=== PATIENT | male | born 1960 | race Caucasian/White ===

== ENCOUNTER 2021-03-06 13:06 | Inpatient (IN) | payer MEDICAID, SELFPAY ==
[~2021-03-06] VITALS: Ht 185.4 cm; Wt 95.9 kg
[~2021-03-06 13:06] MED LIST: CIPR-278 PO
[2021-03-06] MEDS ORDERED: 0.9% SODIUM CHLORIDE 10 ML SYRINGE IVP PRN ×2 (13:30→16:45)
[2021-03-06] MEDS ORDERED: DEXAMETHASONE SOD PHOS 4 MG/ML 5 ML VIAL IVP ONE (13:45)
[2021-03-06] MEDS ORDERED: ACETAMINOPHEN 325 MG TABLET PO ONE (13:45)
[2021-03-06] MEDS ORDERED: AZITHROMYCIN 500 MG/NS 250 ML IV ONE (13:45)
[2021-03-06] MEDS ORDERED: IVERMECTIN 3 MG TABLET PO ONE (13:45)
[2021-03-06] MEDS ORDERED: ZINC SULFATE 220 MG CAPSULE PO ONE (13:45)
[2021-03-06] MEDS ORDERED: BUDESONIDE 180 MCG/INH INHALER [120] IH ONE (14:00)
[2021-03-06 14:44] LABS: BASOPHILS % (AUTO) 0.1 % (0.0-2.0); EOSINOPHILS % (AUTO) 0 % (1.0-6.0); HEMATOCRIT 38.4 % (41-53); LYMPHOCYTES # (AUTO) 0.8 K/uL (1.0-4.8); MEAN CORPUSCULAR HGB CONC 33.8 G/dL (31.0-37.0); MEAN CORPUSCULAR VOLUME 86 fL (80-100); MONOCYTES # (AUTO) 0.4 K/uL (0.1-1.0); MONOCYTES % (AUTO) 6.9 % (2.0-9.0); NEUTROPHILS # (AUTO) 4.7 K/uL (1.8-7.7); PLATELET COUNT (AUTO) 195 K/uL (150-450); RED BLOOD CELL COUNT(AUTO) 4.48 MIL/uL (4.50-5.90); RED CELL DISTRIBUTION WIDTH 13.6 % (11.5-14.5)
[2021-03-06 14:53] LABS: COVID AG,FIA SOURCE NASOPHARYNGEAL
[2021-03-06 15:07] LABS: B-TYPE NATRIURETIC PEPTIDE 268 pg/mL (0-100)
[2021-03-06 15:09] LABS: ABG A-A DIFF O2 142.4 mmHg (10-20.0); ABG BASE EXCESS 0.9 mmol/L (-2.0-3.0); ABG CARBOXYHEMOGLOBIN 0.1 % (0.0-1.5); ABG HCO3 25.6 mmol/L (22.0-26.0); ABG METHEMOGLOBIN 0.1 % (0.0-1.5); ABG OXYGEN SATURATION 91.9 % (95.0-98.0); ABG OXYHEMOGLOBIN 91.7 % (94.0-100.0); ABG PCO2 38 mmHg (35-45); ABG PH 7.435 (7.35-7.450); ABG TOTAL HEMOGLOBIN 13.2 G/dL (12.0-18.0); PO2, ARTERIAL BG 67.6 mmHg (84.0-92.0); SOURCE, BLOOD GAS ARTERIAL; TEMPERATURE, FAHRENHEIT, BG 102.8 FAHREN (96.0-98.6)
[2021-03-06 15:10] LABS: O2 DEVICE,BLOOD GAS CANNULA (ROOM AIR); SITE, BLOOD GAS LFT BRACHIAL
[2021-03-06 15:18] LABS: ANION GAP 11 mmol/L (8-16); APPEARANCE,URINE CLEAR (CLEAR); BILIRUBIN,URINE NEGATIVE (NEGATIVE); CALCIUM, TOTAL 8.1 mg/dL (8.8-10.5); CARBON DIOXIDE 25 mmol/L (22-29); CHLORIDE 100 mmol/L (98-107); CREATININE 0.91 mg/dL (0.60-1.30); GLOMERULAR FILTR. RATE CALC > 60 mL/min (>60); GLUCOSE, URINE (UA) NEGATIVE (NEGATIVE); GLUCOSE,RANDOM 118 mg/dL (70-110); KETONES,URINE NEGATIVE (NEGATIVE); LEUKOCYTE ESTERASE ,URINE NEGATIVE (NEGATIVE); NITRATE,URINE NEGATIVE (NEGATIVE); OCCULT BLOOD,URINE TRACE (NEGATIVE); PH,URINE 6.5 (5.0-8.0); POTASSIUM 3.9 mmol/L (3.5-5.1); PROTEIN,URINE SEE CONFIRM (NEGATIVE); SODIUM SERUM 136 mmol/L (136-145); UREA NITROGEN, BLOOD 14 mg/dL (7-18)
[2021-03-06 15:26] LABS: LACTIC ACID 1.2 mmol/L (0.4-2.0)
[2021-03-06 15:30] LABS: BACTERIA,URINE Rare /HPF (None Seen); SQUAMOUS EPITHELIAL CELL,UR Rare /LPF (None Seen); SULFOSALICYLIC ACID,URINE 3+ (Negative); WBC,URINE 0-2 /HPF (0-5)
[2021-03-06 15:41] LABS: D-DIMER 0.56 mg/L FEU (0.00-0.50); INR 1.1 (0.9-1.1); PROTHROMBIN TIME 11.2 SEC (9.4-11.6)
[2021-03-06 15:56] LABS: ALANINE AMINOTRANSFERASE 29 U/L (12-78); ALKALINE PHOSPHATASE 76 U/L (46-116); ASPARTATE AMINOTRANSFERASE 31 U/L (15-37); BILIRUBIN,TOTAL 0.5 mg/dL (0.1-1.0); C-REACTIVE PROTEIN QUANT 20.39 mg/dL (0.00-0.30); CREATINE KINASE, TOTAL ONLY 181 U/L (39-308); FERRITIN 658 ng/mL (26-388); TOTAL PROTEIN, SERUM 7.3 g/dL (6.4-8.2)
[2021-03-06] MEDS ORDERED: ACETAMINOPHEN 325 MG TABLET PO PRN (16:45)
[2021-03-06] MEDS: AZITHROMYCIN 500 MG/NS 250 ML IV SCH (19:00)
[2021-03-06] MEDS ORDERED: REMDESIVIR 200 MG in SODIUM CHLORIDE 0.9% 250 ML IV ONE (19:00)
[2021-03-06] MEDS ORDERED: BENZONATATE 100 MG CAPSULE PO PRN (19:00)
[2021-03-06] MEDS: DOCUSATE SODIUM 100 MG CAPSULE PO SCH (21:00)
[2021-03-07] MEDS: HEPARIN SODIUM,PORCINE 5,000 UNITS/ML VIAL SQ SCH ×4 (00:07→23:34)
[2021-03-07] MEDS: FAMOTIDINE 20 MG TABLET PO SCH (10:54)
[2021-03-07] MEDS: DOCUSATE SODIUM 100 MG CAPSULE PO SCH ×2 (10:54→21:13)
[2021-03-07] MEDS: DEXAMETHASONE SOD PHOS 4 MG/ML VIAL IVP SCH (10:54)
[2021-03-07 11:17] VITALS: BP 130/81
[2021-03-07 13:12] VITALS: BP_SYST 116; BP_SYST 127; BP_DIAS 68; BP_DIAS 71
[2021-03-07 15:41] LABS: EOSINOPHILS % (AUTO) 0 % (1.0-6.0); HEMOGLOBIN 14.7 g/dL (13.5-17.5); LYMPHOCYTES # (AUTO) 0.8 K/uL (1.0-4.8); LYMPHOCYTES % (AUTO) 7.5 % (22.0-44.0); MEAN CORPUSCULAR HEMOGLOBIN 29.1 pg (26.0-34.0); MEAN CORPUSCULAR HGB CONC 33.5 G/dL (31.0-37.0); MEAN CORPUSCULAR VOLUME 87 fL (80-100); MONOCYTES # (AUTO) 0.6 K/uL (0.1-1.0); MONOCYTES % (AUTO) 5.2 % (2.0-9.0); NEUTROPHILS # (AUTO) 9.4 K/uL (1.8-7.7); PLATELET COUNT (AUTO) 288 K/uL (150-450); RED BLOOD CELL COUNT(AUTO) 5.06 MIL/uL (4.50-5.90); RED CELL DISTRIBUTION WIDTH 13.9 % (11.5-14.5)
[2021-03-07 15:44] LABS: NEUTROPHILS % (AUTO) 87.3 % (40.0-70.0)
[2021-03-07 16:04] LABS: ALANINE AMINOTRANSFERASE 54 U/L (12-78); ALBUMIN 2.7 g/dL (3.4-5.0); ALKALINE PHOSPHATASE 76 U/L (46-116); ANION GAP 12 mmol/L (8-16); ASPARTATE AMINOTRANSFERASE 60 U/L (15-37); BILIRUBIN,TOTAL 0.4 mg/dL (0.1-1.0); CALCIUM, TOTAL 8.5 mg/dL (8.8-10.5); CARBON DIOXIDE 24 mmol/L (22-29); CHLORIDE 103 mmol/L (98-107); CREATININE 0.89 mg/dL (0.60-1.30); GLOMERULAR FILTR. RATE CALC > 60 mL/min (>60); GLUCOSE,RANDOM 239 mg/dL (70-110); POTASSIUM 4.2 mmol/L (3.5-5.1); SODIUM SERUM 139 mmol/L (136-145); TOTAL PROTEIN, SERUM 7.3 g/dL (6.4-8.2); UREA NITROGEN, BLOOD 19 mg/dL (7-18)
[2021-03-07 16:34] VITALS: BP 127/73
[2021-03-07 19:39] VITALS: BP 121/78
[2021-03-07] MEDS ORDERED: SODIUM CHLORIDE 0.9% 500 ML IV ONE (19:48)
[2021-03-07] MEDS: REMDESIVIR 100 MG in SODIUM CHLORIDE 0.9% 250 ML IV SCH (19:56)
[2021-03-07] MEDS: AZITHROMYCIN 500 MG/NS 250 ML IV SCH (21:13)
[2021-03-08] VITALS (7 sets, daily range): BP systolic 112–136; BP diastolic 57–79
[2021-03-08] MEDS: DEXAMETHASONE SOD PHOS 4 MG/ML VIAL IVP SCH (08:44)
[2021-03-08] MEDS: DOCUSATE SODIUM 100 MG CAPSULE PO SCH ×2 (08:44→20:21)
[2021-03-08] MEDS: HEPARIN SODIUM,PORCINE 5,000 UNITS/ML VIAL SQ SCH ×3 (08:44→23:59)
[2021-03-08] MEDS: FAMOTIDINE 20 MG TABLET PO SCH (08:44)
[2021-03-08] MEDS ORDERED: DEXTROSE 50%-WATER 25 GM/50 ML SYRINGE IVP PRN (13:00)
[2021-03-08 15:27] LABS: ALANINE AMINOTRANSFERASE 108 U/L (12-78); ALBUMIN 2.5 g/dL (3.4-5.0); ALKALINE PHOSPHATASE 74 U/L (46-116); ANION GAP 9 mmol/L (8-16); ASPARTATE AMINOTRANSFERASE 94 U/L (15-37); BILIRUBIN,TOTAL 0.5 mg/dL (0.1-1.0); CALCIUM, TOTAL 7.9 mg/dL (8.8-10.5); CARBON DIOXIDE 23 mmol/L (22-29); CHLORIDE 103 mmol/L (98-107); CREATININE 0.87 mg/dL (0.60-1.30); GLOMERULAR FILTR. RATE CALC > 60 mL/min (>60); GLUCOSE,RANDOM 231 mg/dL (70-110); POTASSIUM 4.1 mmol/L (3.5-5.1); SODIUM SERUM 135 mmol/L (136-145); THYROID STIMULATING HORMONE 1.15 uIU/mL (0.36-3.74); TOTAL PROTEIN, SERUM 6.6 g/dL (6.4-8.2); UREA NITROGEN, BLOOD 22 mg/dL (7-18)
[2021-03-08] MEDS: INSULIN LISPRO 100 UNITS/ML SQ PRN (16:16)
[2021-03-08] MEDS: REMDESIVIR 100 MG in SODIUM CHLORIDE 0.9% 250 ML IV SCH (18:09)
[2021-03-08] MEDS: AZITHROMYCIN 500 MG/NS 250 ML IV SCH (20:21)
[2021-03-09 00:26] LABS: GLUCOMETER DEV NAME(LOC) 5N.1C; GLUCOSE,POINT OF CARE 215 MG/DL (70-110)
[2021-03-09] MEDS ORDERED: DAPTOMYCIN 500 MG in SODIUM CHLORIDE 0.9% 50 ML IV SCH (02:00)
[2021-03-09 04:29] VITALS: BP 142/89
[2021-03-09 06:27] LABS: GLUCOMETER DEV NAME(LOC) 5N.1C; GLUCOSE,POINT OF CARE 129 MG/DL (70-110)
[2021-03-09 07:28] VITALS: BP 154/100
[2021-03-09] MEDS: DEXAMETHASONE SOD PHOS 4 MG/ML VIAL IVP SCH (08:09)
[2021-03-09] MEDS: HEPARIN SODIUM,PORCINE 5,000 UNITS/ML VIAL SQ SCH ×3 (08:09→23:30)
[2021-03-09] MEDS: DOCUSATE SODIUM 100 MG CAPSULE PO SCH ×2 (08:10→20:26)
[2021-03-09] MEDS: FAMOTIDINE 20 MG TABLET PO SCH (08:10)
[2021-03-09 08:23] VITALS: BP 117/60
[2021-03-09 09:04] LABS: ALANINE AMINOTRANSFERASE 111 U/L (12-78); ALBUMIN 2.5 g/dL (3.4-5.0); ALKALINE PHOSPHATASE 80 U/L (46-116); ANION GAP 12 mmol/L (8-16); ASPARTATE AMINOTRANSFERASE 64 U/L (15-37); BILIRUBIN,TOTAL 0.6 mg/dL (0.1-1.0); C-REACTIVE PROTEIN QUANT 5.86 mg/dL (0.00-0.30); CALCIUM, TOTAL 8.1 mg/dL (8.8-10.5); CARBON DIOXIDE 25 mmol/L (22-29); CHLORIDE 103 mmol/L (98-107); CREATININE 0.75 mg/dL (0.60-1.30); GLOMERULAR FILTR. RATE CALC > 60 mL/min (>60); GLUCOSE,RANDOM 126 mg/dL (70-110); POTASSIUM 3.9 mmol/L (3.5-5.1); SODIUM SERUM 140 mmol/L (136-145); TOTAL PROTEIN, SERUM 6.3 g/dL (6.4-8.2); UREA NITROGEN, BLOOD 20 mg/dL (7-18)
[2021-03-09] MEDS: INSULIN LISPRO 100 UNITS/ML SQ PRN ×3 (11:38→20:27)
[2021-03-09 11:40] VITALS: BP 127/96
[2021-03-09 15:32] VITALS: BP 124/76
[2021-03-09] MEDS: REMDESIVIR 100 MG in SODIUM CHLORIDE 0.9% 250 ML IV SCH (18:33)
[2021-03-09 19:44] VITALS: BP 135/88
[2021-03-09 19:58] LABS: GLUCOMETER DEV NAME(LOC) 5N.3; GLUCOSE,POINT OF CARE 179 MG/DL (70-110)
[2021-03-09 19:58] LABS: GLUCOMETER DEV NAME(LOC) 5N.3; GLUCOSE,POINT OF CARE 182 MG/DL (70-110)
[2021-03-09] MEDS: AZITHROMYCIN 500 MG/NS 250 ML IV SCH (20:26)
[2021-03-09] MEDS: CHOLECALCIFEROL (VIT D3) 2,000 UNITS [50 MCG] TABLET PO SCH (20:26)
[2021-03-10] VITALS (7 sets, daily range): BP systolic 123–157; BP diastolic 74–108
[2021-03-10 00:28] LABS: GLUCOMETER DEV NAME(LOC) 5N.1C; GLUCOSE,POINT OF CARE 157 MG/DL (70-110)
[2021-03-10 08:56] LABS: ALANINE AMINOTRANSFERASE 104 U/L (12-78); ALBUMIN 2.5 g/dL (3.4-5.0); ALKALINE PHOSPHATASE 86 U/L (46-116); ANION GAP 11 mmol/L (8-16); ASPARTATE AMINOTRANSFERASE 46 U/L (15-37); BILIRUBIN,TOTAL 0.7 mg/dL (0.1-1.0); CALCIUM, TOTAL 7.8 mg/dL (8.8-10.5); CARBON DIOXIDE 25 mmol/L (22-29); CHLORIDE 104 mmol/L (98-107); CREATININE 0.71 mg/dL (0.60-1.30); GLOMERULAR FILTR. RATE CALC > 60 mL/min (>60); GLUCOSE,RANDOM 109 mg/dL (70-110); POTASSIUM 3.6 mmol/L (3.5-5.1); SODIUM SERUM 140 mmol/L (136-145); TOTAL PROTEIN, SERUM 6.5 g/dL (6.4-8.2); UREA NITROGEN, BLOOD 17 mg/dL (7-18)
[2021-03-10] MEDS: FAMOTIDINE 20 MG TABLET PO SCH (09:07)
[2021-03-10] MEDS: CHOLECALCIFEROL (VIT D3) 2,000 UNITS [50 MCG] TABLET PO SCH (09:07)
[2021-03-10] MEDS: DEXAMETHASONE SOD PHOS 4 MG/ML VIAL IVP SCH (09:08)
[2021-03-10] MEDS: DOCUSATE SODIUM 100 MG CAPSULE PO SCH ×2 (09:08→20:23)
[2021-03-10] MEDS: HEPARIN SODIUM,PORCINE 5,000 UNITS/ML VIAL SQ SCH ×3 (09:08→23:23)
[2021-03-10 11:40] LABS: GLUCOMETER DEV NAME(LOC) 5N.1C; GLUCOSE,POINT OF CARE 131 MG/DL (70-110)
[2021-03-10] MEDS: INSULIN LISPRO 100 UNITS/ML SQ PRN ×3 (11:59→20:25)
[2021-03-10 17:37] LABS: GLUCOMETER DEV NAME(LOC) 5N.3; GLUCOSE,POINT OF CARE 215 MG/DL (70-110)
[2021-03-10] MEDS: REMDESIVIR 100 MG in SODIUM CHLORIDE 0.9% 250 ML IV SCH (19:06)
[2021-03-10] MEDS ORDERED: SODIUM CHLORIDE 0.9% 500 ML IV ONE (19:32)
[2021-03-10] MEDS: AZITHROMYCIN 500 MG/NS 250 ML IV SCH (20:00)
[2021-03-10 22:16] LABS: GLUCOMETER DEV NAME(LOC) 5N.1C; GLUCOSE,POINT OF CARE 148 MG/DL (70-110)
[2021-03-10] MEDS: ACETAMINOPHEN 325 MG TABLET PO PRN (23:51)
[2021-03-11 05:06] VITALS: BP 136/78
[2021-03-11 07:31] VITALS: BP 142/86
[2021-03-11] MEDS: FAMOTIDINE 20 MG TABLET PO SCH (08:48)
[2021-03-11] MEDS: DEXAMETHASONE SOD PHOS 4 MG/ML VIAL IVP SCH (08:48)
[2021-03-11] MEDS: CHOLECALCIFEROL (VIT D3) 2,000 UNITS [50 MCG] TABLET PO SCH (08:48)
[2021-03-11] MEDS: HEPARIN SODIUM,PORCINE 5,000 UNITS/ML VIAL SQ SCH ×3 (08:48→23:53)
[2021-03-11] MEDS: DOCUSATE SODIUM 100 MG CAPSULE PO SCH ×2 (09:00→20:48)
[2021-03-11] MEDS: INSULIN LISPRO 100 UNITS/ML SQ PRN ×3 (11:55→20:49)
[2021-03-11 12:02] VITALS: BP 150/96
[2021-03-11 16:25] VITALS: BP 142/90
[2021-03-11 20:08] VITALS: BP 140/64
[2021-03-12 01:01] VITALS: BP 133/81
[2021-03-12] MEDS: ACETAMINOPHEN 325 MG TABLET PO PRN (04:44)
[2021-03-12 04:53] VITALS: BP 135/76
[2021-03-12 07:53] VITALS: BP 138/83
[2021-03-12] MEDS: CHOLECALCIFEROL (VIT D3) 2,000 UNITS [50 MCG] TABLET PO SCH (08:54)
[2021-03-12] MEDS: HEPARIN SODIUM,PORCINE 5,000 UNITS/ML VIAL SQ SCH ×3 (08:54→23:04)
[2021-03-12] MEDS: DOCUSATE SODIUM 100 MG CAPSULE PO SCH ×2 (08:55→20:59)
[2021-03-12] MEDS: FAMOTIDINE 20 MG TABLET PO SCH (08:55)
[2021-03-12] MEDS: DEXAMETHASONE SOD PHOS 4 MG/ML VIAL IVP SCH (08:56)
[2021-03-12 12:42] VITALS: BP 139/86
[2021-03-12 15:10] LABS: BASOPHILS % (AUTO) 0.1 % (0.0-2.0); EOSINOPHILS % (AUTO) 0.2 % (1.0-6.0); HEMATOCRIT 40.1 % (41-53); HEMOGLOBIN 13.8 g/dL (13.5-17.5); LYMPHOCYTES # (AUTO) 0.3 K/uL (1.0-4.8); LYMPHOCYTES % (AUTO) 3.2 % (22.0-44.0); MEAN CORPUSCULAR HEMOGLOBIN 29.6 pg (26.0-34.0); MEAN CORPUSCULAR HGB CONC 34.3 G/dL (31.0-37.0); MEAN CORPUSCULAR VOLUME 86 fL (80-100); MONOCYTES # (AUTO) 1.1 K/uL (0.1-1.0); MONOCYTES % (AUTO) 9.9 % (2.0-9.0); NEUTROPHILS # (AUTO) 9.4 K/uL (1.8-7.7); PLATELET COUNT (AUTO) 441 K/uL (150-450); RED BLOOD CELL COUNT(AUTO) 4.65 MIL/uL (4.50-5.90); RED CELL DISTRIBUTION WIDTH 13.8 % (11.5-14.5)
[2021-03-12 15:12] LABS: NEUTROPHILS % (AUTO) 86.6 % (40.0-70.0)
[2021-03-12 15:21] LABS: ANION GAP 9 mmol/L (8-16); CALCIUM, TOTAL 8.6 mg/dL (8.8-10.5); CARBON DIOXIDE 24 mmol/L (22-29); CHLORIDE 103 mmol/L (98-107); CREATININE 0.81 mg/dL (0.60-1.30); GLOMERULAR FILTR. RATE CALC > 60 mL/min (>60); GLUCOSE,RANDOM 210 mg/dL (70-110); POTASSIUM 4.4 mmol/L (3.5-5.1); SODIUM SERUM 136 mmol/L (136-145); UREA NITROGEN, BLOOD 18 mg/dL (7-18)
[2021-03-12 15:26] LABS: ALANINE AMINOTRANSFERASE 72 U/L (12-78); ALBUMIN 2.4 g/dL (3.4-5.0); ALKALINE PHOSPHATASE 96 U/L (46-116); ASPARTATE AMINOTRANSFERASE 22 U/L (15-37); BILIRUBIN,TOTAL 0.7 mg/dL (0.1-1.0); TOTAL PROTEIN, SERUM 6.4 g/dL (6.4-8.2)
[2021-03-12 15:47] VITALS: BP 124/70
[2021-03-12] MEDS: INSULIN LISPRO 100 UNITS/ML SQ PRN ×2 (18:09→21:08)
[2021-03-12 18:29] LABS: GLUCOMETER DEV NAME(LOC) 5S.2B; GLUCOSE,POINT OF CARE 260 MG/DL (70-110)
[2021-03-12 18:29] LABS: GLUCOMETER DEV NAME(LOC) 5S.2B; GLUCOSE,POINT OF CARE 172 MG/DL (70-110)
[2021-03-12 20:20] VITALS: BP 132/73
[2021-03-13] VITALS (7 sets, daily range): BP systolic 127–151; BP diastolic 76–96
[2021-03-13] MEDS: ACETAMINOPHEN 325 MG TABLET PO PRN (00:46)
[2021-03-13] MEDS: DOCUSATE SODIUM 100 MG CAPSULE PO SCH ×2 (08:26→20:57)
[2021-03-13] MEDS: FAMOTIDINE 20 MG TABLET PO SCH (08:26)
[2021-03-13] MEDS: HEPARIN SODIUM,PORCINE 5,000 UNITS/ML VIAL SQ SCH ×3 (08:26→23:57)
[2021-03-13] MEDS: DEXAMETHASONE SOD PHOS 4 MG/ML VIAL IVP SCH (08:26)
[2021-03-13] MEDS: CHOLECALCIFEROL (VIT D3) 2,000 UNITS [50 MCG] TABLET PO SCH (08:27)
[2021-03-13] MEDS: INSULIN LISPRO 100 UNITS/ML SQ PRN ×3 (11:34→21:08)
[2021-03-13 16:20] LABS: GLUCOMETER DEV NAME(LOC) 5N.1C; GLUCOSE,POINT OF CARE 190 MG/DL (70-110)
[2021-03-13 18:28] LABS: GLUCOMETER DEV NAME(LOC) 5S.2B; GLUCOSE,POINT OF CARE 216 MG/DL (70-110)
[2021-03-14] MEDS: ALBUTEROL SULFATE HFA 90 MCG/PUFF 8 GM INHALER IH PRN ×3 (02:04→20:13)
[2021-03-14 04:25] VITALS: BP 140/94
[2021-03-14] MEDS: ACETAMINOPHEN 325 MG TABLET PO PRN ×2 (05:54→20:12)
[2021-03-14 07:25] VITALS: BP 150/81
[2021-03-14] MEDS: DEXAMETHASONE SOD PHOS 4 MG/ML VIAL IVP SCH (07:55)
[2021-03-14] MEDS: DOCUSATE SODIUM 100 MG CAPSULE PO SCH ×2 (07:56→20:13)
[2021-03-14] MEDS: CHOLECALCIFEROL (VIT D3) 2,000 UNITS [50 MCG] TABLET PO SCH (07:56)
[2021-03-14] MEDS: HEPARIN SODIUM,PORCINE 5,000 UNITS/ML VIAL SQ SCH ×2 (07:56→16:05)
[2021-03-14] MEDS: FAMOTIDINE 20 MG TABLET PO SCH (07:56)
[2021-03-14 11:04] VITALS: BP 150/103
[2021-03-14 11:05] VITALS: BP 158/105
[2021-03-14 13:44] LABS: GLUCOMETER DEV NAME(LOC) 5S.2B; GLUCOSE,POINT OF CARE 187 MG/DL (70-110)
[2021-03-14 15:14] VITALS: BP 132/77
[2021-03-14] MEDS: INSULIN LISPRO 100 UNITS/ML SQ PRN ×2 (17:32→20:28)
[2021-03-14 17:44] LABS: GLUCOMETER DEV NAME(LOC) 5S.2B; GLUCOSE,POINT OF CARE 191 MG/DL (70-110)
[2021-03-14 19:54] VITALS: BP 140/90
[2021-03-14 20:48] LABS: GLUCOMETER DEV NAME(LOC) 5N.3; GLUCOSE,POINT OF CARE 208 MG/DL (70-110)
[2021-03-14 20:48] LABS: GLUCOMETER DEV NAME(LOC) 5N.3; GLUCOSE,POINT OF CARE 189 MG/DL (70-110)
[2021-03-14 20:48] LABS: GLUCOMETER DEV NAME(LOC) 5N.3; GLUCOSE,POINT OF CARE 153 MG/DL (70-110)
[2021-03-14 20:48] LABS: GLUCOMETER DEV NAME(LOC) 5N.3; GLUCOSE,POINT OF CARE 130 MG/DL (70-110)
[2021-03-14 20:48] LABS: GLUCOMETER DEV NAME(LOC) 5N.3; GLUCOSE,POINT OF CARE 178 MG/DL (70-110)
[2021-03-14 20:49] LABS: GLUCOMETER DEV NAME(LOC) 5N.3; GLUCOSE,POINT OF CARE 118 MG/DL (70-110)
[2021-03-14 20:49] LABS: GLUCOMETER DEV NAME(LOC) 5N.3; GLUCOSE,POINT OF CARE 217 MG/DL (70-110)
[2021-03-14 20:49] LABS: GLUCOMETER DEV NAME(LOC) 5N.3; GLUCOSE,POINT OF CARE 109 MG/DL (70-110)
[2021-03-14 20:49] LABS: GLUCOMETER DEV NAME(LOC) 5N.3; GLUCOSE,POINT OF CARE 280 MG/DL (70-110)
[2021-03-14 20:49] LABS: GLUCOMETER DEV NAME(LOC) 5N.3; GLUCOSE,POINT OF CARE 154 MG/DL (70-110)
[2021-03-14 20:50] LABS: GLUCOMETER DEV NAME(LOC) 5N.3; GLUCOSE,POINT OF CARE 126 MG/DL (70-110)
[2021-03-15 00:03] VITALS: BP 143/84
[2021-03-15 01:01] LABS: GLUCOMETER DEV NAME(LOC) 5S.2B; GLUCOSE,POINT OF CARE 174 MG/DL (70-110)
[2021-03-15] MEDS: HEPARIN SODIUM,PORCINE 5,000 UNITS/ML VIAL SQ SCH ×2 (01:02→09:22)
[2021-03-15 04:20] VITALS: BP 144/87
[2021-03-15 07:53] VITALS: BP 144/90
[2021-03-15] MEDS: DEXAMETHASONE SOD PHOS 4 MG/ML VIAL IVP SCH (09:21)
[2021-03-15 09:22] LABS: ANION GAP 10 mmol/L (8-16); C-REACTIVE PROTEIN QUANT 15.69 mg/dL (0.00-0.30); CALCIUM, TOTAL 8.4 mg/dL (8.8-10.5); CARBON DIOXIDE 22 mmol/L (22-29); CHLORIDE 104 mmol/L (98-107); CREATININE 0.93 mg/dL (0.60-1.30); GLOMERULAR FILTR. RATE CALC > 60 mL/min (>60); GLUCOSE,RANDOM 155 mg/dL (70-110); SODIUM SERUM 136 mmol/L (136-145); UREA NITROGEN, BLOOD 20 mg/dL (7-18)
[2021-03-15] MEDS: FAMOTIDINE 20 MG TABLET PO SCH (09:22)
[2021-03-15] MEDS: DOCUSATE SODIUM 100 MG CAPSULE PO SCH ×2 (09:22→21:00)
[2021-03-15] MEDS: CHOLECALCIFEROL (VIT D3) 2,000 UNITS [50 MCG] TABLET PO SCH (09:22)
[2021-03-15] MEDS ORDERED: DIGOXIN 250 MCG/ML 2 ML AMP IVP ONE (09:45)
[2021-03-15 11:37] LABS: ABG A-A DIFF O2 651.9 mmHg (10-20.0); ABG BASE EXCESS -3.9 mmol/L (-2.0-3.0); ABG CARBOXYHEMOGLOBIN 0.6 % (0.0-1.5); ABG HCO3 22.7 mmol/L (22.0-26.0); ABG METHEMOGLOBIN 0.3 % (0.0-1.5); ABG OXYGEN CONTENT 17.6 mL/dL (15.0-23.0); ABG PCO2 23 mmHg (35-45); ABG PH 7.537 (7.35-7.450); ABG TOTAL HEMOGLOBIN 16.1 G/dL (12.0-18.0); SOURCE, BLOOD GAS ARTERIAL
[2021-03-15 11:39] LABS: PO2, ARTERIAL BG 39.3 mmHg (84.0-92.0)
[2021-03-15 11:40] LABS: ABG OXYGEN SATURATION 78.7 % (95.0-98.0); O2 DEVICE,BLOOD GAS HFNC (ROOM AIR); SITE, BLOOD GAS RT RADIAL
[2021-03-15] MEDS ORDERED: PROPOFOL 1000 MG/ISO-OSM 100 ML ONE (12:28)
[2021-03-15] MEDS: FentaNYL CIT 1000MCG/0.9% NACL 100 ML IV PRN ×3 (13:32→23:47)
[2021-03-15] MEDS: PROPOFOL 1000 MG/ISO-OSM 100 ML IV PRN ×3 (13:34→23:48)
[2021-03-15] MEDS: MIDAZOLAM HCL 100 MG in SODIUM CHLORIDE 0.9% 180 ML IV PRN ×2 (13:50→23:47)
[2021-03-15 14:45] LABS: ABG A-A DIFF O2 575.1 mmHg (10-20.0); ABG BASE EXCESS -8.4 mmol/L (-2.0-3.0); ABG CARBOXYHEMOGLOBIN 0.3 % (0.0-1.5); ABG HCO3 17.7 mmol/L (22.0-26.0); ABG METHEMOGLOBIN 0.3 % (0.0-1.5); ABG OXYGEN CONTENT 20.9 mL/dL (15.0-23.0); ABG OXYGEN SATURATION 95.2 % (95.0-98.0); ABG OXYHEMOGLOBIN 94.6 % (94.0-100.0); ABG PCO2 48 mmHg (35-45); ABG PH 7.222 (7.35-7.450); ABG TOTAL HEMOGLOBIN 15.7 G/dL (12.0-18.0); PO2, ARTERIAL BG 90.6 mmHg (84.0-92.0); SITE, BLOOD GAS LFT BRACHIAL; SOURCE, BLOOD GAS ARTERIAL
[2021-03-15 14:46] LABS: GLUCOMETER DEV NAME(LOC) 5N.1C; GLUCOSE,POINT OF CARE 165 MG/DL (70-110)
[2021-03-15 14:46] LABS: O2 DEVICE,BLOOD GAS VENTILATOR (ROOM AIR); PEEP,BG 12 cm H2O; VT, ABG 560 ml
[2021-03-15 14:47] LABS: SPONTANEOUS VT, BG 631 ml
[2021-03-15] MEDS ORDERED: NOREPINEPHRINE 4 MG/D5%-WATER 250 ML IV ONE (14:59)
[2021-03-15] MEDS ORDERED: PHENYLEPHRINE HCL IN 0.9% NACL 400 MCG/10 ML SYRINGE IVP ONE ×2 (14:59→15:30)
[2021-03-15] MEDS ORDERED: HEPARIN SODIUM 25000 UNITS/D5W 250 ML IV ONE (15:25)
[2021-03-15] MEDS ORDERED: RINGERS SOLUTION,LACTATED 1,000 ML IV ONE ×2 (15:25→15:30)
[2021-03-15] MEDS ORDERED: PHENYLEPHRINE 200 MG/D5%-WATER 250 ML IV PRN (15:30)
[2021-03-15] MEDS ORDERED: HEPARIN SODIUM,PORCINE 5,000 UNITS/ML VIAL IVP PRN ×2 (15:30)
[2021-03-15] MEDS ORDERED: HEPARIN SODIUM,PORCINE 5,000 UNITS/ML VIAL IVP ONE (15:30)
[2021-03-15] MEDS: NOREPINEPHRINE 4 MG/D5%-WATER 250 ML IV PRN ×3 (15:47→23:46)
[2021-03-15] MEDS ORDERED: TOCILIZUMAB 600 MG in SODIUM CHLORIDE 0.9% 70 ML IV ONE (16:00)
[2021-03-15 16:14] LABS: BASOPHILS % (AUTO) 0.2 % (0.0-2.0); EOSINOPHILS % (AUTO) 0.1 % (1.0-6.0); HEMATOCRIT 46.5 % (41-53); HEMOGLOBIN 15.2 g/dL (13.5-17.5); LYMPHOCYTES # (AUTO) 0.4 K/uL (1.0-4.8); LYMPHOCYTES % (AUTO) 1.5 % (22.0-44.0); MEAN CORPUSCULAR HEMOGLOBIN 28.9 pg (26.0-34.0); MEAN CORPUSCULAR HGB CONC 32.8 G/dL (31.0-37.0); MEAN CORPUSCULAR VOLUME 88 fL (80-100); MONOCYTES # (AUTO) 2.3 K/uL (0.1-1.0); NEUTROPHILS # (AUTO) 22.7 K/uL (1.8-7.7); PLATELET COUNT (AUTO) 506 K/uL (150-450); RED BLOOD CELL COUNT(AUTO) 5.26 MIL/uL (4.50-5.90); RED CELL DISTRIBUTION WIDTH 14.4 % (11.5-14.5)
[2021-03-15] MEDS ORDERED: CISATRACURIUM BESYLATE 2 MG/ML 10 ML VIAL IVP ONE (16:15)
[2021-03-15] MEDS: CISATRACURIUM BESYLATE 50 MG in DEXTROSE 5%-WATER 245 ML IV PRN (16:19)
[2021-03-15 16:21] LABS: NEUTROPHILS % (AUTO) 89.2 % (40.0-70.0)
[2021-03-15 16:30] LABS: INR 1.2 (0.9-1.1); PROTHROMBIN TIME 12.6 SEC (9.4-11.6)
[2021-03-15] MEDS: HEPARIN SODIUM 25000 UNITS/D5W 250 ML IV PRN (17:06)
[2021-03-15 17:22] LABS: PLATELET MORPHOLOGY COMMENT GIANT PLTS PRESENT
[2021-03-15 17:34] LABS: C-REACTIVE PROTEIN QUANT 19.19 mg/dL (0.00-0.30)
[2021-03-15 18:11] LABS: GLUCOMETER DEV NAME(LOC) 5N.3; GLUCOSE,POINT OF CARE 118 MG/DL (70-110)
[2021-03-15] MEDS ORDERED: KETAMINE HCL 500 MG in DEXTROSE 5%-WATER 490 ML IV PRN (18:30)
[2021-03-15 18:53] LABS: APPEARANCE,URINE CLOUDY (CLEAR); GLUCOSE, URINE (UA) 100 mg/dL (NEGATIVE); KETONES,URINE 15 mg/dL (NEGATIVE); LEUKOCYTE ESTERASE ,URINE NEGATIVE (NEGATIVE); NITRATE,URINE NEGATIVE (NEGATIVE); OCCULT BLOOD,URINE LARGE (NEGATIVE); PROTEIN,URINE SEE CONFIRM (NEGATIVE)
[2021-03-15 19:03] LABS: BILIRUBIN,URINE PRELIM. POSITIVE (NEGATIVE)
[2021-03-15 19:06] LABS: SULFOSALICYLIC ACID,URINE 4+ (Negative)
[2021-03-15 19:11] LABS: SQUAMOUS EPITHELIAL CELL,UR Few /LPF (None Seen)
[2021-03-15 19:12] LABS: BACTERIA,URINE Few /HPF (None Seen)
[2021-03-15 19:19] LABS: ALBUMIN 2.2 g/dL (3.4-5.0); BILIRUBIN,TOTAL 1.1 mg/dL (0.1-1.0); CALCIUM, TOTAL 8.2 mg/dL (8.8-10.5); CREATININE 1.64 mg/dL (0.60-1.30); TOTAL PROTEIN, SERUM 6.9 g/dL (6.4-8.2)
[2021-03-15 19:30] VITALS: BP 106/75
[2021-03-15 19:37] LABS: ABG A-A DIFF O2 485.2 mmHg (10-20.0); ABG BASE EXCESS -10.1 mmol/L (-2.0-3.0); ABG HCO3 15.4 mmol/L (22.0-26.0); ABG PCO2 77 mmHg (35-45); ABG PH 7.039 (7.35-7.450); PO2, ARTERIAL BG 153.5 mmHg (84.0-92.0); SITE, BLOOD GAS ARTERIAL LINE; SOURCE, BLOOD GAS ARTERIAL; TEMPERATURE, FAHRENHEIT, BG 96.5 FAHREN (96.0-98.6)
[2021-03-15 19:38] LABS: ABG CARBOXYHEMOGLOBIN 0.3 % (0.0-1.5); ABG METHEMOGLOBIN 0.6 % (0.0-1.5); ABG OXYGEN CONTENT 21.3 mL/dL (15.0-23.0); ABG OXYHEMOGLOBIN 97.1 % (94.0-100.0); ABG TOTAL HEMOGLOBIN 15.4 G/dL (12.0-18.0); O2 DEVICE,BLOOD GAS VENTILATOR (ROOM AIR); VENT MODE, BG Press. Control Vent (ROOM AIR)
[2021-03-15 19:39] LABS: PEEP,BG 12 cm H2O; SPONTANEOUS VT, BG 471 ml
[2021-03-15 20:30] VITALS: BP 123/72
[2021-03-15 20:57] LABS: ABG A-A DIFF O2 531.7 mmHg (10-20.0); ABG BASE EXCESS -8.2 mmol/L (-2.0-3.0); ABG CARBOXYHEMOGLOBIN 0.1 % (0.0-1.5); ABG HCO3 16.3 mmol/L (22.0-26.0); ABG METHEMOGLOBIN 0.5 % (0.0-1.5); ABG OXYGEN CONTENT 20.6 mL/dL (15.0-23.0); ABG OXYGEN SATURATION 96.5 % (95.0-98.0); ABG OXYHEMOGLOBIN 95.9 % (94.0-100.0); ABG TOTAL HEMOGLOBIN 15.2 G/dL (12.0-18.0); PO2, ARTERIAL BG 101.9 mmHg (84.0-92.0); SOURCE, BLOOD GAS ARTERIAL; TEMPERATURE, FAHRENHEIT, BG 94.9 FAHREN (96.0-98.6)
[2021-03-15 20:58] LABS: ABG PCO2 85 mmHg (35-45); ABG PH 7.037 (7.35-7.450); O2 DEVICE,BLOOD GAS VENTILATOR (ROOM AIR); PEEP,BG 12 cm H2O; SITE, BLOOD GAS ARTERIAL LINE; VT, ABG 420 ml
[2021-03-15 21:01] LABS: GLUCOMETER DEV NAME(LOC) ERT.5; GLUCOSE,POINT OF CARE 293 MG/DL (70-110)
[2021-03-15 21:28] LABS: GLUCOMETER DEV NAME(LOC) ERT.5; GLUCOSE,POINT OF CARE 338 MG/DL (70-110)
[2021-03-15 21:30] VITALS: BP 100/66
[2021-03-15] MEDS ORDERED: SODIUM CHLORIDE 0.9% 500 ML IV ONE (22:00)
[2021-03-16] VITALS: BP 133/65
[2021-03-16] MEDS: CISATRACURIUM BESYLATE 50 MG in DEXTROSE 5%-WATER 245 ML IV PRN ×2 (00:39→03:54)
[2021-03-16] MEDS: NOREPINEPHRINE 4 MG/D5%-WATER 250 ML IV PRN ×3 (03:55→13:50)
[2021-03-16] MEDS: PROPOFOL 1000 MG/ISO-OSM 100 ML IV PRN ×6 (03:55→19:49)
[2021-03-16 04:00] VITALS: BP 105/57
[2021-03-16 05:18] LABS: HEMATOCRIT 43.7 % (41-53); HEMOGLOBIN 13.8 g/dL (13.5-17.5); MEAN CORPUSCULAR HGB CONC 31.7 G/dL (31.0-37.0); MEAN CORPUSCULAR VOLUME 91 fL (80-100); PLATELET COUNT (AUTO) 511 K/uL (150-450); RED BLOOD CELL COUNT(AUTO) 4.78 MIL/uL (4.50-5.90); RED CELL DISTRIBUTION WIDTH 14.3 % (11.5-14.5)
[2021-03-16 05:27] LABS: ALBUMIN 2.1 g/dL (3.4-5.0); BILIRUBIN,TOTAL 0.4 mg/dL (0.1-1.0); C-REACTIVE PROTEIN QUANT 21.58 mg/dL (0.00-0.30); CALCIUM, TOTAL 7.4 mg/dL (8.8-10.5); CREATININE 2.15 mg/dL (0.60-1.30); TOTAL PROTEIN, SERUM 6.9 g/dL (6.4-8.2)
[2021-03-16] MEDS: CISATRACURIUM BESYLATE 100 MG in DEXTROSE 5%-WATER 240 ML IV PRN ×3 (06:25→20:21)
[2021-03-16 06:45] LABS: D-DIMER > 35.20 mg/L FEU (0.00-0.50)
[2021-03-16] MEDS: FentaNYL CIT 1000MCG/0.9% NACL 100 ML IV PRN ×3 (06:57→19:50)
[2021-03-16] MEDS: INSULIN LISPRO 100 UNITS/ML SQ PRN ×3 (06:59→18:53)
[2021-03-16 07:02] LABS: BAND NEUTROPHILS % (MANUAL) 10 % (0-5); LYMPHOCYTES % (MANUAL) 3 % (22-44); METAMYELOCYTES % 1 % (0-0); MONOCYTES % (MANUAL) 5 % (2-9); SEGMENTED NEUTROPHILS % 81 % (40-70)
[2021-03-16 07:17] LABS: GLUCOSE,POINT OF CARE 235 MG/DL (70-110)
[2021-03-16] MEDS ORDERED: DEXTROSE 50%-WATER 25 GM/50 ML SYRINGE IVP ONE ×2 (07:30→08:30)
[2021-03-16] MEDS ORDERED: INSULIN REGULAR, HUMAN 100 UNITS/ML IVP ONE (07:30)
[2021-03-16 08:00] VITALS: BP 108/58
[2021-03-16] MEDS: FAMOTIDINE 20 MG TABLET PO SCH (08:04)
[2021-03-16] MEDS: DEXAMETHASONE SOD PHOS 4 MG/ML VIAL IVP SCH (08:04)
[2021-03-16] MEDS: DOCUSATE SODIUM 100 MG CAPSULE PO SCH ×2 (08:04→21:30)
[2021-03-16] MEDS: CHOLECALCIFEROL (VIT D3) 2,000 UNITS [50 MCG] TABLET PO SCH (08:04)
[2021-03-16] MEDS ORDERED: CALCIUM GLUCONATE 100 MG/ML 10 ML IVP ONE (08:15)
[2021-03-16 09:01] LABS: ABG A-A DIFF O2 376.2 mmHg (10-20.0); ABG BASE EXCESS -5.8 mmol/L (-2.0-3.0); ABG CARBOXYHEMOGLOBIN 0.2 % (0.0-1.5); ABG METHEMOGLOBIN 0.2 % (0.0-1.5); ABG OXYGEN CONTENT 20.1 mL/dL (15.0-23.0); ABG OXYGEN SATURATION 98.1 % (95.0-98.0); ABG OXYHEMOGLOBIN 97.7 % (94.0-100.0); ABG TOTAL HEMOGLOBIN 14.5 G/dL (12.0-18.0); PO2, ARTERIAL BG 127.3 mmHg (84.0-92.0); SOURCE, BLOOD GAS ARTERIAL; TEMPERATURE, FAHRENHEIT, BG 97.8 FAHREN (96.0-98.6)
[2021-03-16 09:02] LABS: ABG PCO2 136 mmHg (35-45); ABG PH 6.913 (7.35-7.450); O2 DEVICE,BLOOD GAS VENTILATOR (ROOM AIR); PEEP,BG 12 cm H2O; SITE, BLOOD GAS ARTERIAL LINE; VENT MODE, BG Press. Control Vent (ROOM AIR)
[2021-03-16 09:03] LABS: INSPIRATORY TIME, BG 0.8 SEC; SPONTANEOUS VT, BG 421 ml
[2021-03-16] MEDS: HEPARIN SODIUM 25000 UNITS/D5W 250 ML IV PRN (09:06)
[2021-03-16] MEDS ORDERED: PHENYLEPHRINE HCL 800 MG in DEXTROSE 5%-WATER 170 ML IV PRN (10:00)
[2021-03-16 12:00] VITALS: BP 123/62
[2021-03-16 12:27] LABS: ABG A-A DIFF O2 424.5 mmHg (10-20.0); ABG BASE EXCESS -8.7 mmol/L (-2.0-3.0); ABG CARBOXYHEMOGLOBIN 0.3 % (0.0-1.5); ABG HCO3 17.1 mmol/L (22.0-26.0); ABG METHEMOGLOBIN 0.3 % (0.0-1.5); ABG OXYGEN CONTENT 19.8 mL/dL (15.0-23.0); ABG OXYHEMOGLOBIN 98.4 % (94.0-100.0); ABG PCO2 61 mmHg (35-45); ABG TOTAL HEMOGLOBIN 14.1 G/dL (12.0-18.0); PO2, ARTERIAL BG 155.7 mmHg (84.0-92.0); SOURCE, BLOOD GAS ARTERIAL
[2021-03-16 12:28] LABS: ABG PH 7.142 (7.35-7.450); O2 DEVICE,BLOOD GAS VENTILATOR (ROOM AIR); PEEP,BG 12 cm H2O; SITE, BLOOD GAS ARTERIAL LINE; SPONTANEOUS VT, BG 598 ml; VENT MODE, BG Press. Control Vent (ROOM AIR)
[2021-03-16 12:29] LABS: INSPIRATORY TIME, BG 0.8 SEC
[2021-03-16] MEDS ORDERED: *CLINICAL-CEFTAZIDIME DOSING CLINICAL ONE (12:30)
[2021-03-16] MEDS ORDERED: CefTAZidime PENTAHYDRATE 1 GM in DEXTROSE 5%-WATER 50 ML IV SCH (13:00)
[2021-03-16] MEDS: VASOPRESSIN 40 UNITS in DEXTROSE 5%-WATER 98 ML IV PRN (13:11)
[2021-03-16] MEDS ORDERED: SODIUM CHLORIDE 0.9% 250 ML IV ONE (13:48)
[2021-03-16] MEDS: CefTAZidime PENTAHYDRATE 2 GM in DEXTROSE 5%-WATER 50 ML IV SCH (15:48)
[2021-03-16 16:00] VITALS: BP 101/55
[2021-03-16] MEDS ORDERED: DAPTOMYCIN 500 MG in SODIUM CHLORIDE 0.9% 50 ML IV SCH (17:00)
[2021-03-16 17:48] LABS: APPEARANCE,URINE CLOUDY (CLEAR); BILIRUBIN,URINE NEGATIVE (NEGATIVE); GLUCOSE, URINE (UA) 100 mg/dL (NEGATIVE); KETONES,URINE NEGATIVE (NEGATIVE); LEUKOCYTE ESTERASE ,URINE NEGATIVE (NEGATIVE); NITRATE,URINE NEGATIVE (NEGATIVE); OCCULT BLOOD,URINE NEGATIVE (NEGATIVE); PROTEIN,URINE POS 1+ (NEGATIVE); UROBILINOGEN,URINE 0.2 mg/dL (<=1.0)
[2021-03-16 17:51] LABS: CREATININE,URINE RANDOM 143.7 mg/dL (30.0-125.0); SODIUM,URINE RANDOM 19 mmol/l (20-110); UREA NITROGEN,URINE RANDOM 242 mg/dL (350-1000)
[2021-03-16 18:06] LABS: AMORPHOUS SEDIMENT,UR Few /LPF (None Seen); BACTERIA,URINE None Seen /HPF (None Seen); RBC,URINE None Seen /HPF (0-2); SQUAMOUS EPITHELIAL CELL,UR Few /LPF (None Seen); WBC,URINE 0-2 /HPF (0-5)
[2021-03-16 18:44] LABS: CALCIUM, TOTAL 8.1 mg/dL (8.8-10.5); CREATININE 2.09 mg/dL (0.60-1.30); POTASSIUM 5.4 mmol/L (3.5-5.1)
[2021-03-16 20:00] VITALS: BP 134/64
[2021-03-16] MEDS ORDERED: SODIUM CHLORIDE 0.9% 2,000 ML ONE (23:42)
[2021-03-17] VITALS: BP 144/62
[2021-03-17] MEDS: INSULIN LISPRO 100 UNITS/ML SQ PRN ×3 (00:06→17:51)
[2021-03-17 00:16] LABS: GLUCOSE,POINT OF CARE 195 MG/DL (70-110)
[2021-03-17 00:16] LABS: GLUCOSE,POINT OF CARE 156 MG/DL (70-110)
[2021-03-17 00:16] LABS: GLUCOSE,POINT OF CARE 184 MG/DL (70-110)
[2021-03-17] MEDS: CefTAZidime PENTAHYDRATE 2 GM in DEXTROSE 5%-WATER 50 ML IV SCH ×2 (01:00→12:36)
[2021-03-17] MEDS: MIDAZOLAM HCL 100 MG in SODIUM CHLORIDE 0.9% 180 ML IV PRN (01:00)
[2021-03-17] MEDS: PROPOFOL 1000 MG/ISO-OSM 100 ML IV PRN ×5 (03:17→20:31)
[2021-03-17] MEDS: HEPARIN SODIUM 25000 UNITS/D5W 250 ML IV PRN ×2 (03:18→23:43)
[2021-03-17] MEDS: FentaNYL CIT 1000MCG/0.9% NACL 100 ML IV PRN ×4 (03:19→18:03)
[2021-03-17 04:00] VITALS: BP 125/56
[2021-03-17 04:56] LABS: BASOPHILS % (AUTO) 0.3 % (0.0-2.0); EOSINOPHILS % (AUTO) 0.1 % (1.0-6.0); HEMATOCRIT 36.5 % (41-53); HEMOGLOBIN 11.9 g/dL (13.5-17.5); LYMPHOCYTES # (AUTO) 0.6 K/uL (1.0-4.8); LYMPHOCYTES % (AUTO) 2.7 % (22.0-44.0); MEAN CORPUSCULAR HEMOGLOBIN 28.9 pg (26.0-34.0); MEAN CORPUSCULAR HGB CONC 32.6 G/dL (31.0-37.0); MEAN CORPUSCULAR VOLUME 89 fL (80-100); MONOCYTES # (AUTO) 1.6 K/uL (0.1-1.0); MONOCYTES % (AUTO) 7.5 % (2.0-9.0); PLATELET COUNT (AUTO) 366 K/uL (150-450); RED BLOOD CELL COUNT(AUTO) 4.12 MIL/uL (4.50-5.90); RED CELL DISTRIBUTION WIDTH 14.3 % (11.5-14.5)
[2021-03-17] MEDS: CISATRACURIUM BESYLATE 100 MG in DEXTROSE 5%-WATER 240 ML IV PRN ×2 (05:03→17:33)
[2021-03-17 05:05] LABS: NEUTROPHILS % (AUTO) 89.4 % (40.0-70.0)
[2021-03-17 05:11] LABS: C-REACTIVE PROTEIN QUANT 10.15 mg/dL (0.00-0.30); CALCIUM, TOTAL 7.7 mg/dL (8.8-10.5); CREATININE 2.67 mg/dL (0.60-1.30); MAGNESIUM 2.3 mg/dL (1.80-2.40); PHOSPHORUS 7.3 mg/dL (2.5-4.9); POTASSIUM 4.6 mmol/L (3.5-5.1)
[2021-03-17 05:39] LABS: PLATELET MORPHOLOGY COMMENT LARGE PLTS PRESENT
[2021-03-17] MEDS: DOPamine 800MG/D5W[DOUBLE] 250 ML IV PRN (06:00)
[2021-03-17] MEDS: DEXAMETHASONE SOD PHOS 4 MG/ML VIAL IVP SCH (07:59)
[2021-03-17 08:00] VITALS: BP 118/51
[2021-03-17] MEDS: CHOLECALCIFEROL (VIT D3) 2,000 UNITS [50 MCG] TABLET PO SCH (08:00)
[2021-03-17] MEDS: FAMOTIDINE 20 MG TABLET PO SCH (08:00)
[2021-03-17] MEDS: DOCUSATE SODIUM 100 MG CAPSULE PO SCH ×2 (08:00→21:43)
[2021-03-17] MEDS ORDERED: SODIUM CHLORIDE 0.9% 1,000 ML ONE (09:32)
[2021-03-17 12:00] VITALS: BP 108/52
[2021-03-17 13:35] LABS: GLUCOSE,POINT OF CARE 139 MG/DL (70-110)
[2021-03-17 14:45] LABS: GLUCOSE,POINT OF CARE 167 MG/DL (70-110)
[2021-03-17 16:00] VITALS: BP 162/70
[2021-03-17] MEDS ORDERED: HEPARIN SODIUM,PORCINE 1,000 UNITS/ML VIAL IVP ONE (16:38)
[2021-03-17 19:45] LABS: GLUCOSE,POINT OF CARE 194 MG/DL (70-110)
[2021-03-17 20:00] VITALS: BP 155/71
[2021-03-17] MEDS ORDERED: SODIUM CHLORIDE 0.9% 500 ML IV ONE (23:58)
[2021-03-18] VITALS: BP 110/49
[2021-03-18] MEDS: PROPOFOL 1000 MG/ISO-OSM 100 ML IV PRN ×5 (00:20→20:40)
[2021-03-18] MEDS: FentaNYL CIT 1000MCG/0.9% NACL 100 ML IV PRN ×4 (00:21→19:31)
[2021-03-18] MEDS: MIDAZOLAM HCL 100 MG in SODIUM CHLORIDE 0.9% 180 ML IV PRN ×2 (00:21→17:49)
[2021-03-18] MEDS: CefTAZidime PENTAHYDRATE 2 GM in DEXTROSE 5%-WATER 50 ML IV SCH ×2 (00:22→12:48)
[2021-03-18] MEDS: INSULIN LISPRO 100 UNITS/ML SQ PRN ×3 (01:00→17:46)
[2021-03-18] MEDS: CISATRACURIUM BESYLATE 100 MG in DEXTROSE 5%-WATER 240 ML IV PRN ×3 (01:17→19:27)
[2021-03-18 02:41] LABS: GLUCOSE,POINT OF CARE 157 MG/DL (70-110)
[2021-03-18] MEDS: POTASSIUM CHLORIDE 10 MEQ in NXSTAGE RFP-402 K0/CA3 5,000 ML IRRIG PRN ×4 (03:02→22:54)
[2021-03-18 04:00] VITALS: BP 114/48
[2021-03-18] MEDS ORDERED: SODIUM CHLORIDE 0.9% 250 ML IV ONE (04:47)
[2021-03-18 05:57] LABS: BASOPHILS % (AUTO) 0.1 % (0.0-2.0); EOSINOPHILS % (AUTO) 0.1 % (1.0-6.0); HEMATOCRIT 36.4 % (41-53); LYMPHOCYTES # (AUTO) 0.6 K/uL (1.0-4.8); MEAN CORPUSCULAR HEMOGLOBIN 29.1 pg (26.0-34.0); MEAN CORPUSCULAR VOLUME 88 fL (80-100); MONOCYTES # (AUTO) 1.1 K/uL (0.1-1.0); MONOCYTES % (AUTO) 6.8 % (2.0-9.0); PLATELET COUNT (AUTO) 339 K/uL (150-450); RED BLOOD CELL COUNT(AUTO) 4.12 MIL/uL (4.50-5.90); RED CELL DISTRIBUTION WIDTH 13.9 % (11.5-14.5)
[2021-03-18 06:18] LABS: ALBUMIN 1.9 g/dL (3.4-5.0); BILIRUBIN,TOTAL 0.4 mg/dL (0.1-1.0); C-REACTIVE PROTEIN QUANT 5.65 mg/dL (0.00-0.30); CALCIUM, TOTAL 7.7 mg/dL (8.8-10.5); CREATININE 2.97 mg/dL (0.60-1.30); MAGNESIUM 2.3 mg/dL (1.80-2.40); PHOSPHORUS 7.7 mg/dL (2.5-4.9); POTASSIUM 4.3 mmol/L (3.5-5.1); TOTAL PROTEIN, SERUM 5.9 g/dL (6.4-8.2)
[2021-03-18 06:35] LABS: GLUCOSE,POINT OF CARE 130 MG/DL (70-110)
[2021-03-18 06:54] LABS: PLATELET MORPHOLOGY COMMENT LARGE PLTS PRESENT
[2021-03-18 08:00] VITALS: BP 118/54
[2021-03-18] MEDS: CHOLECALCIFEROL (VIT D3) 2,000 UNITS [50 MCG] TABLET PO SCH (08:20)
[2021-03-18] MEDS: DOCUSATE SODIUM 100 MG CAPSULE PO SCH ×2 (08:21→20:39)
[2021-03-18] MEDS: DEXAMETHASONE SOD PHOS 4 MG/ML VIAL IVP SCH (08:21)
[2021-03-18] MEDS: FAMOTIDINE 20 MG TABLET PO SCH (08:21)
[2021-03-18 11:41] LABS: ABG A-A DIFF O2 433.8 mmHg (10-20.0); ABG BASE EXCESS -5.5 mmol/L (-2.0-3.0); ABG CARBOXYHEMOGLOBIN 0.3 % (0.0-1.5); ABG HCO3 19.9 mmol/L (22.0-26.0); ABG METHEMOGLOBIN 0.3 % (0.0-1.5); ABG OXYGEN CONTENT 17.6 mL/dL (15.0-23.0); ABG OXYGEN SATURATION 97.8 % (95.0-98.0); ABG OXYHEMOGLOBIN 97.2 % (94.0-100.0); ABG PCO2 43 mmHg (35-45); ABG TOTAL HEMOGLOBIN 12.8 G/dL (12.0-18.0); O2 DEVICE,BLOOD GAS VENTILATOR (ROOM AIR); PO2, ARTERIAL BG 95.6 mmHg (84.0-92.0); SITE, BLOOD GAS ARTERIAL LINE; SOURCE, BLOOD GAS ARTERIAL; TEMPERATURE, FAHRENHEIT, BG 94.4 FAHREN (96.0-98.6); VENT MODE, BG Press. Control Vent (ROOM AIR)
[2021-03-18 11:42] LABS: PEEP,BG 12 cm H2O; SPONTANEOUS VT, BG 597 ml
[2021-03-18 11:43] LABS: INSPIRATORY TIME, BG 0.8 SEC
[2021-03-18 12:00] VITALS: BP 119/49
[2021-03-18 16:00] VITALS: BP 113/51
[2021-03-18 17:33] LABS: GLUCOSE,POINT OF CARE 154 MG/DL (70-110)
[2021-03-18] MEDS: HEPARIN SODIUM 25000 UNITS/D5W 250 ML IV PRN (17:47)
[2021-03-18] MEDS: DOPamine 800MG/D5W[DOUBLE] 250 ML IV PRN (17:48)
[2021-03-18 20:00] VITALS: BP 118/54
[2021-03-19] VITALS: BP 124/53
[2021-03-19] MEDS: CefTAZidime PENTAHYDRATE 2 GM in DEXTROSE 5%-WATER 50 ML IV SCH ×2 (02:02→13:10)
[2021-03-19] MEDS: FentaNYL CIT 1000MCG/0.9% NACL 100 ML IV PRN ×3 (02:05→15:10)
[2021-03-19] MEDS: PROPOFOL 1000 MG/ISO-OSM 100 ML IV PRN ×5 (02:06→22:49)
[2021-03-19 04:00] VITALS: BP 123/60
[2021-03-19] MEDS: CISATRACURIUM BESYLATE 100 MG in DEXTROSE 5%-WATER 240 ML IV PRN ×3 (04:24→15:09)
[2021-03-19 05:12] LABS: BASOPHILS % (AUTO) 0.3 % (0.0-2.0); EOSINOPHILS % (AUTO) 0.1 % (1.0-6.0); HEMATOCRIT 36.8 % (41-53); LYMPHOCYTES # (AUTO) 0.6 K/uL (1.0-4.8); LYMPHOCYTES % (AUTO) 4.7 % (22.0-44.0); MEAN CORPUSCULAR HEMOGLOBIN 28.7 pg (26.0-34.0); MEAN CORPUSCULAR HGB CONC 32.5 G/dL (31.0-37.0); MEAN CORPUSCULAR VOLUME 88 fL (80-100); MONOCYTES % (AUTO) 7.6 % (2.0-9.0); NEUTROPHILS # (AUTO) 11.9 K/uL (1.8-7.7); PLATELET COUNT (AUTO) 373 K/uL (150-450); RED BLOOD CELL COUNT(AUTO) 4.17 MIL/uL (4.50-5.90); RED CELL DISTRIBUTION WIDTH 14.2 % (11.5-14.5)
[2021-03-19 05:20] LABS: NEUTROPHILS % (AUTO) 87.3 % (40.0-70.0)
[2021-03-19] MEDS ORDERED: SODIUM CHLORIDE 0.9% 250 ML IV ONE ×2 (05:31→09:15)
[2021-03-19 07:11] LABS: CREATININE 3.44 mg/dL (0.60-1.30); MAGNESIUM 2.2 mg/dL (1.80-2.40); PHOSPHORUS 6.3 mg/dL (2.5-4.9)
[2021-03-19 07:24] LABS: GLUCOSE,POINT OF CARE 152 MG/DL (70-110)
[2021-03-19 07:24] LABS: GLUCOSE,POINT OF CARE 94 MG/DL (70-110)
[2021-03-19 07:46] LABS: GLUCOSE,POINT OF CARE 92 MG/DL (70-110)
[2021-03-19 08:00] VITALS: BP 121/53
[2021-03-19] MEDS: CHOLECALCIFEROL (VIT D3) 2,000 UNITS [50 MCG] TABLET PO SCH (08:24)
[2021-03-19] MEDS: DOCUSATE SODIUM 100 MG CAPSULE PO SCH ×2 (08:24→21:01)
[2021-03-19] MEDS: DEXAMETHASONE SOD PHOS 4 MG/ML VIAL IVP SCH (08:24)
[2021-03-19] MEDS: FAMOTIDINE 20 MG TABLET PO SCH (08:24)
[2021-03-19] MEDS: HEPARIN SODIUM 25000 UNITS/D5W 250 ML IV PRN (09:17)
[2021-03-19] MEDS: POTASSIUM CHLORIDE 20 MEQ in NXSTAGE RFP-402 K0/CA3 5,000 ML IRRIG PRN ×2 (11:26→15:07)
[2021-03-19 12:00] VITALS: BP 136/71
[2021-03-19 12:13] LABS: GLUCOSE,POINT OF CARE 135 MG/DL (70-110)
[2021-03-19] MEDS: MIDAZOLAM HCL 100 MG in SODIUM CHLORIDE 0.9% 180 ML IV PRN (15:11)
[2021-03-19 16:00] VITALS: BP 135/64
[2021-03-19] MEDS: INSULIN LISPRO 100 UNITS/ML SQ PRN (18:08)
[2021-03-19 18:45] LABS: GLUCOSE,POINT OF CARE 146 MG/DL (70-110)
[2021-03-19 20:00] VITALS: BP 129/59
[2021-03-20] VITALS: BP 153/65
[2021-03-20] MEDS: POTASSIUM CHLORIDE 20 MEQ in NXSTAGE RFP-402 K0/CA3 5,000 ML IRRIG PRN ×3 (00:20→08:36)
[2021-03-20] MEDS: CefTAZidime PENTAHYDRATE 2 GM in DEXTROSE 5%-WATER 50 ML IV SCH (01:09)
[2021-03-20] MEDS: CISATRACURIUM BESYLATE 100 MG in DEXTROSE 5%-WATER 240 ML IV PRN ×3 (02:19→17:04)
[2021-03-20] MEDS: HEPARIN SODIUM 25000 UNITS/D5W 250 ML IV PRN ×2 (02:20→17:05)
[2021-03-20] MEDS: PROPOFOL 1000 MG/ISO-OSM 100 ML IV PRN ×5 (03:15→23:23)
[2021-03-20 04:00] VITALS: BP 142/63
[2021-03-20 05:22] LABS: BASOPHILS % (AUTO) 0.1 % (0.0-2.0); EOSINOPHILS % (AUTO) 0.4 % (1.0-6.0); HEMATOCRIT 35.9 % (41-53); LYMPHOCYTES # (AUTO) 0.8 K/uL (1.0-4.8); LYMPHOCYTES % (AUTO) 6.6 % (22.0-44.0); MEAN CORPUSCULAR HEMOGLOBIN 29.3 pg (26.0-34.0); MEAN CORPUSCULAR HGB CONC 33.5 G/dL (31.0-37.0); MEAN CORPUSCULAR VOLUME 88 fL (80-100); MONOCYTES # (AUTO) 0.9 K/uL (0.1-1.0); MONOCYTES % (AUTO) 7.4 % (2.0-9.0); NEUTROPHILS # (AUTO) 10.8 K/uL (1.8-7.7); PLATELET COUNT (AUTO) 319 K/uL (150-450); RED CELL DISTRIBUTION WIDTH 14.3 % (11.5-14.5)
[2021-03-20 05:30] LABS: NEUTROPHILS % (AUTO) 85.5 % (40.0-70.0)
[2021-03-20 05:51] LABS: BILIRUBIN,TOTAL 0.4 mg/dL (0.1-1.0); C-REACTIVE PROTEIN QUANT 2.26 mg/dL (0.00-0.30); CALCIUM, TOTAL 8.1 mg/dL (8.8-10.5); CREATININE 3.49 mg/dL (0.60-1.30)
[2021-03-20 06:12] LABS: PLATELET MORPHOLOGY COMMENT LARGE PLTS PRESENT
[2021-03-20] MEDS: FentaNYL CIT 1000MCG/0.9% NACL 100 ML IV PRN ×3 (06:26→20:54)
[2021-03-20 08:00] VITALS: BP 132/62
[2021-03-20] MEDS: DOCUSATE SODIUM 100 MG CAPSULE PO SCH ×2 (08:34→21:10)
[2021-03-20] MEDS: DEXAMETHASONE SOD PHOS 4 MG/ML VIAL IVP SCH (08:34)
[2021-03-20] MEDS: FAMOTIDINE 20 MG TABLET PO SCH (08:35)
[2021-03-20] MEDS: CHOLECALCIFEROL (VIT D3) 2,000 UNITS [50 MCG] TABLET PO SCH (08:35)
[2021-03-20] MEDS: MIDAZOLAM HCL 100 MG in SODIUM CHLORIDE 0.9% 180 ML IV PRN (10:41)
[2021-03-20 12:00] VITALS: BP 153/70
[2021-03-20 12:30] LABS: GLUCOSE,POINT OF CARE 89 MG/DL (70-110)
[2021-03-20 12:30] LABS: GLUCOSE,POINT OF CARE 124 MG/DL (70-110)
[2021-03-20 12:30] LABS: GLUCOSE,POINT OF CARE 96 MG/DL (70-110)
[2021-03-20] MEDS: CefTRIAXone SODIUM 2 GM in DEXTROSE 5%-WATER 50 ML IV SCH (12:34)
[2021-03-20] MEDS ORDERED: HEPARIN SODIUM,PORCINE 1,000 UNITS/ML VIAL ONE (15:23)
[2021-03-20 16:00] VITALS: BP 147/68
[2021-03-20] MEDS ORDERED: SODIUM CHLORIDE 0.9% 250 ML IV ONE (17:06)
[2021-03-20] MEDS ORDERED: SODIUM CHLORIDE 0.9% 500 ML IV ONE (17:06)
[2021-03-20 18:01] LABS: GLUCOSE,POINT OF CARE 136 MG/DL (70-110)
[2021-03-20 20:00] VITALS: BP 121/58
[2021-03-21] VITALS: BP 135/58
[2021-03-21] MEDS: CISATRACURIUM BESYLATE 100 MG in DEXTROSE 5%-WATER 240 ML IV PRN ×4 (00:23→18:03)
[2021-03-21] MEDS: PROPOFOL 1000 MG/ISO-OSM 100 ML IV PRN ×4 (03:20→22:26)
[2021-03-21] MEDS: FentaNYL CIT 1000MCG/0.9% NACL 100 ML IV PRN ×4 (03:21→22:26)
[2021-03-21 04:00] VITALS: BP 127/57
[2021-03-21 04:33] LABS: GLUCOSE,POINT OF CARE 108 MG/DL (70-110)
[2021-03-21 05:11] LABS: BASOPHILS % (AUTO) 0.4 % (0.0-2.0); EOSINOPHILS % (AUTO) 0.9 % (1.0-6.0); HEMATOCRIT 36.4 % (41-53); HEMOGLOBIN 12.1 g/dL (13.5-17.5); LYMPHOCYTES # (AUTO) 0.7 K/uL (1.0-4.8); LYMPHOCYTES % (AUTO) 4.8 % (22.0-44.0); MEAN CORPUSCULAR HEMOGLOBIN 29.5 pg (26.0-34.0); MEAN CORPUSCULAR HGB CONC 33.2 G/dL (31.0-37.0); MEAN CORPUSCULAR VOLUME 89 fL (80-100); MONOCYTES # (AUTO) 1.2 K/uL (0.1-1.0); MONOCYTES % (AUTO) 8.2 % (2.0-9.0); NEUTROPHILS # (AUTO) 12.8 K/uL (1.8-7.7); PLATELET COUNT (AUTO) 388 K/uL (150-450); RED BLOOD CELL COUNT(AUTO) 4.09 MIL/uL (4.50-5.90); RED CELL DISTRIBUTION WIDTH 14.6 % (11.5-14.5)
[2021-03-21 05:23] LABS: NEUTROPHILS % (AUTO) 85.7 % (40.0-70.0)
[2021-03-21 05:32] LABS: ALBUMIN 2.1 g/dL (3.4-5.0); BILIRUBIN,TOTAL 0.4 mg/dL (0.1-1.0); CALCIUM, TOTAL 8.1 mg/dL (8.8-10.5); CREATININE 4.63 mg/dL (0.60-1.30); MAGNESIUM 2.4 mg/dL (1.80-2.40); PHOSPHORUS 8.3 mg/dL (2.5-4.9); POTASSIUM 4.5 mmol/L (3.5-5.1); TOTAL PROTEIN, SERUM 6.2 g/dL (6.4-8.2)
[2021-03-21] MEDS: MIDAZOLAM HCL 100 MG in SODIUM CHLORIDE 0.9% 180 ML IV PRN ×2 (05:41→22:27)
[2021-03-21 08:00] VITALS: BP 119/58
[2021-03-21] MEDS: FAMOTIDINE 20 MG TABLET PO SCH (09:41)
[2021-03-21] MEDS: CHOLECALCIFEROL (VIT D3) 2,000 UNITS [50 MCG] TABLET PO SCH (09:41)
[2021-03-21] MEDS: DOCUSATE SODIUM 100 MG CAPSULE PO SCH ×2 (09:41→21:20)
[2021-03-21] MEDS: DEXAMETHASONE SOD PHOS 4 MG/ML VIAL IVP SCH (09:41)
[2021-03-21] MEDS: HEPARIN SODIUM 25000 UNITS/D5W 250 ML IV PRN (10:28)
[2021-03-21 12:00] VITALS: BP 187/72
[2021-03-21 12:18] LABS: GLUCOSE,POINT OF CARE 109 MG/DL (70-110)
[2021-03-21] MEDS: HydrALAZINE HCL 20 MG/ML VIAL IVP PRN (13:10)
[2021-03-21] MEDS: METOPROLOL SUCCINATE 25 MG ER TABLET PO SCH (13:10)
[2021-03-21 16:00] VITALS: BP 105/51
[2021-03-21] MEDS ORDERED: HEPARIN SODIUM,PORCINE 1,000 UNITS/ML VIAL IVP ONE (16:33)
[2021-03-21] MEDS: METOCLOPRAMIDE HCL 5 MG/ML 2 ML VIAL IVP SCH (16:54)
[2021-03-21] MEDS: CefTRIAXone SODIUM 2 GM in DEXTROSE 5%-WATER 50 ML IV SCH (16:54)
[2021-03-21 17:52] LABS: GLUCOSE,POINT OF CARE 128 MG/DL (70-110)
[2021-03-21] MEDS: INSULIN LISPRO 100 UNITS/ML SQ PRN (18:06)
[2021-03-21 20:00] VITALS: BP 91/52
[2021-03-21] MEDS: ETHYL ALCOHOL 62% ANTISEPTIC NASAL INHALANT 0.6 ML AMPUL NASAL SCH (21:20)
[2021-03-21 23:59] LABS: BASOPHILS % (AUTO) 0.4 % (0.0-2.0); EOSINOPHILS % (AUTO) 0.9 % (1.0-6.0); HEMATOCRIT 35.3 % (41-53); HEMOGLOBIN 11.6 g/dL (13.5-17.5); LYMPHOCYTES # (AUTO) 0.8 K/uL (1.0-4.8); LYMPHOCYTES % (AUTO) 3.8 % (22.0-44.0); MEAN CORPUSCULAR HEMOGLOBIN 28.9 pg (26.0-34.0); MEAN CORPUSCULAR HGB CONC 32.8 G/dL (31.0-37.0); MEAN CORPUSCULAR VOLUME 88 fL (80-100); MONOCYTES # (AUTO) 1.3 K/uL (0.1-1.0); MONOCYTES % (AUTO) 6.5 % (2.0-9.0); NEUTROPHILS # (AUTO) 17.5 K/uL (1.8-7.7); PLATELET COUNT (AUTO) 364 K/uL (150-450); RED CELL DISTRIBUTION WIDTH 14.5 % (11.5-14.5)
[2021-03-22] VITALS: BP 132/62
[2021-03-22 00:02] LABS: NEUTROPHILS % (AUTO) 88.4 % (40.0-70.0)
[2021-03-22 00:18] LABS: GLUCOSE,POINT OF CARE 209 MG/DL (70-110)
[2021-03-22] MEDS: METOCLOPRAMIDE HCL 5 MG/ML 2 ML VIAL IVP SCH ×4 (01:29→23:30)
[2021-03-22] MEDS: CISATRACURIUM BESYLATE 100 MG in DEXTROSE 5%-WATER 240 ML IV PRN (02:30)
[2021-03-22 04:00] VITALS: BP 122/57
[2021-03-22 05:01] LABS: BASOPHILS % (AUTO) 0.5 % (0.0-2.0); EOSINOPHILS % (AUTO) 1.1 % (1.0-6.0); HEMATOCRIT 35.5 % (41-53); HEMOGLOBIN 11.6 g/dL (13.5-17.5); LYMPHOCYTES # (AUTO) 0.9 K/uL (1.0-4.8); MEAN CORPUSCULAR HEMOGLOBIN 28.8 pg (26.0-34.0); MEAN CORPUSCULAR HGB CONC 32.6 G/dL (31.0-37.0); MEAN CORPUSCULAR VOLUME 88 fL (80-100); MONOCYTES # (AUTO) 1.3 K/uL (0.1-1.0); MONOCYTES % (AUTO) 7.6 % (2.0-9.0); NEUTROPHILS # (AUTO) 14.9 K/uL (1.8-7.7); PLATELET COUNT (AUTO) 389 K/uL (150-450); RED BLOOD CELL COUNT(AUTO) 4.02 MIL/uL (4.50-5.90); RED CELL DISTRIBUTION WIDTH 14.4 % (11.5-14.5)
[2021-03-22 05:21] LABS: ALBUMIN 2.1 g/dL (3.4-5.0); BILIRUBIN,TOTAL 0.3 mg/dL (0.1-1.0); C-REACTIVE PROTEIN QUANT 3.15 mg/dL (0.00-0.30); CALCIUM, TOTAL 8.2 mg/dL (8.8-10.5); CREATININE 4.41 mg/dL (0.60-1.30); POTASSIUM 4.7 mmol/L (3.5-5.1); TOTAL PROTEIN, SERUM 6.3 g/dL (6.4-8.2)
[2021-03-22 05:34] LABS: NEUTROPHILS % (AUTO) 85.8 % (40.0-70.0)
[2021-03-22] MEDS: FentaNYL CIT 1000MCG/0.9% NACL 100 ML IV PRN ×3 (06:47→23:30)
[2021-03-22 08:00] VITALS: BP 145/62
[2021-03-22] MEDS: PROPOFOL 1000 MG/ISO-OSM 100 ML IV PRN ×2 (08:07→23:11)
[2021-03-22] MEDS: DOCUSATE SODIUM 100 MG CAPSULE PO SCH ×2 (09:29→22:17)
[2021-03-22] MEDS: DEXAMETHASONE SOD PHOS 4 MG/ML VIAL IVP SCH (09:29)
[2021-03-22] MEDS: METOPROLOL SUCCINATE 25 MG ER TABLET PO SCH (09:29)
[2021-03-22] MEDS: FAMOTIDINE 20 MG TABLET PO SCH (09:30)
[2021-03-22] MEDS: CHOLECALCIFEROL (VIT D3) 2,000 UNITS [50 MCG] TABLET PO SCH (09:31)
[2021-03-22] MEDS: ETHYL ALCOHOL 62% ANTISEPTIC NASAL INHALANT 0.6 ML AMPUL NASAL SCH ×2 (09:33→22:17)
[2021-03-22 10:15] LABS: ABG A-A DIFF O2 294.2 mmHg (10-20.0); ABG BASE EXCESS -5.8 mmol/L (-2.0-3.0); ABG CARBOXYHEMOGLOBIN 0.3 % (0.0-1.5); ABG HCO3 19.8 mmol/L (22.0-26.0); ABG METHEMOGLOBIN 0.3 % (0.0-1.5); ABG OXYGEN CONTENT 15.4 mL/dL (15.0-23.0); ABG OXYHEMOGLOBIN 95.4 % (94.0-100.0); ABG PCO2 44 mmHg (35-45); ABG PH 7.294 (7.35-7.450); ABG TOTAL HEMOGLOBIN 11.4 G/dL (12.0-18.0); PO2, ARTERIAL BG 85.6 mmHg (84.0-92.0); SOURCE, BLOOD GAS ARTERIAL; TEMPERATURE, FAHRENHEIT, BG 98.6 FAHREN (96.0-98.6)
[2021-03-22 10:17] LABS: SITE, BLOOD GAS ARTERIAL LINE
[2021-03-22 10:18] LABS: INSPIRATORY TIME, BG 0.8 SEC; O2 DEVICE,BLOOD GAS VENTILATOR (ROOM AIR); PEEP,BG 10 cm H2O; SPONTANEOUS VT, BG 575 ml; VENT MODE, BG Press. Control Vent (ROOM AIR)
[2021-03-22 12:00] VITALS: BP 175/70
[2021-03-22 12:46] LABS: GLUCOSE,POINT OF CARE 108 MG/DL (70-110)
[2021-03-22] MEDS: CefTRIAXone SODIUM 2 GM in DEXTROSE 5%-WATER 50 ML IV SCH (14:45)
[2021-03-22 16:00] VITALS: BP 122/58
[2021-03-22] MEDS: HEPARIN SODIUM 25000 UNITS/D5W 250 ML IV PRN (16:25)
[2021-03-22] MEDS: MIDAZOLAM HCL 100 MG in SODIUM CHLORIDE 0.9% 180 ML IV PRN (17:20)
[2021-03-22 17:39] LABS: GLUCOSE,POINT OF CARE 125 MG/DL (70-110)
[2021-03-22 20:00] VITALS: BP 172/69
[2021-03-23] VITALS: BP 140/60
[2021-03-23 03:39] LABS: GLUCOSE,POINT OF CARE 97 MG/DL (70-110)
[2021-03-23 04:00] VITALS: BP 136/53
[2021-03-23] MEDS: PROPOFOL 1000 MG/ISO-OSM 100 ML IV PRN ×2 (04:50→11:19)
[2021-03-23 05:29] LABS: BASOPHILS % (AUTO) 0.4 % (0.0-2.0); EOSINOPHILS % (AUTO) 1.6 % (1.0-6.0); HEMATOCRIT 30.7 % (41-53); HEMOGLOBIN 10.1 g/dL (13.5-17.5); LYMPHOCYTES # (AUTO) 0.9 K/uL (1.0-4.8); LYMPHOCYTES % (AUTO) 6.1 % (22.0-44.0); MEAN CORPUSCULAR HEMOGLOBIN 29.1 pg (26.0-34.0); MEAN CORPUSCULAR HGB CONC 32.9 G/dL (31.0-37.0); MEAN CORPUSCULAR VOLUME 89 fL (80-100); MONOCYTES # (AUTO) 1.2 K/uL (0.1-1.0); MONOCYTES % (AUTO) 8.4 % (2.0-9.0); NEUTROPHILS # (AUTO) 12.1 K/uL (1.8-7.7); NEUTROPHILS % (AUTO) 83.5 % (40.0-70.0); PLATELET COUNT (AUTO) 369 K/uL (150-450); RED BLOOD CELL COUNT(AUTO) 3.47 MIL/uL (4.50-5.90); RED CELL DISTRIBUTION WIDTH 14.4 % (11.5-14.5)
[2021-03-23 05:34] LABS: BILIRUBIN,TOTAL 0.3 mg/dL (0.1-1.0); C-REACTIVE PROTEIN QUANT 5.16 mg/dL (0.00-0.30); CALCIUM, TOTAL 8.3 mg/dL (8.8-10.5); CREATININE 6.53 mg/dL (0.60-1.30); POTASSIUM 4.6 mmol/L (3.5-5.1); TOTAL PROTEIN, SERUM 5.8 g/dL (6.4-8.2)
[2021-03-23 06:02] LABS: GLUCOSE,POINT OF CARE 78 MG/DL (70-110)
[2021-03-23] MEDS: FentaNYL CIT 1000MCG/0.9% NACL 100 ML IV PRN ×3 (06:56→19:40)
[2021-03-23] MEDS: HEPARIN SODIUM 25000 UNITS/D5W 250 ML IV PRN ×2 (06:56→18:48)
[2021-03-23] MEDS: MIDAZOLAM HCL 100 MG in SODIUM CHLORIDE 0.9% 180 ML IV PRN ×2 (06:57→20:53)
[2021-03-23] MEDS ORDERED: SODIUM CHLORIDE 0.9% 2,000 ML ONE (07:01)
[2021-03-23 08:00] VITALS: BP 148/61
[2021-03-23 12:00] VITALS: BP 112/51
[2021-03-23] MEDS: ETHYL ALCOHOL 62% ANTISEPTIC NASAL INHALANT 0.6 ML AMPUL NASAL SCH ×2 (12:24→20:50)
[2021-03-23] MEDS: DEXAMETHASONE SOD PHOS 4 MG/ML VIAL IVP SCH (12:25)
[2021-03-23] MEDS: METOCLOPRAMIDE HCL 5 MG/ML 2 ML VIAL IVP SCH ×2 (12:25→16:31)
[2021-03-23] MEDS: DOCUSATE SODIUM 100 MG CAPSULE PO SCH ×2 (12:25→20:50)
[2021-03-23] MEDS: METOPROLOL SUCCINATE 25 MG ER TABLET PO SCH (12:25)
[2021-03-23] MEDS: CHOLECALCIFEROL (VIT D3) 2,000 UNITS [50 MCG] TABLET PO SCH (12:26)
[2021-03-23] MEDS: FAMOTIDINE 20 MG TABLET PO SCH (12:26)
[2021-03-23] MEDS: CefTRIAXone SODIUM 2 GM in DEXTROSE 5%-WATER 50 ML IV SCH (12:27)
[2021-03-23 13:20] LABS: GLUCOSE,POINT OF CARE 83 MG/DL (70-110)
[2021-03-23 15:05] LABS: APPEARANCE,URINE CLOUDY (CLEAR); BILIRUBIN,URINE NEGATIVE (NEGATIVE); GLUCOSE, URINE (UA) NEGATIVE (NEGATIVE); KETONES,URINE NEGATIVE (NEGATIVE); LEUKOCYTE ESTERASE ,URINE NEGATIVE (NEGATIVE); NITRATE,URINE NEGATIVE (NEGATIVE); OCCULT BLOOD,URINE NEGATIVE (NEGATIVE); PROTEIN,URINE POS 1+ (NEGATIVE); UROBILINOGEN,URINE 0.2 mg/dL (<=1.0)
[2021-03-23 15:45] LABS: AMORPHOUS SEDIMENT,UR Many /LPF (None Seen); BACTERIA,URINE Rare /HPF (None Seen); RBC,URINE 0-2 /HPF (0-2); SQUAMOUS EPITHELIAL CELL,UR Few /LPF (None Seen); WBC,URINE 0-2 /HPF (0-5)
[2021-03-23 16:00] VITALS: BP 114/49
[2021-03-23 16:52] LABS: GLUCOSE,POINT OF CARE 99 MG/DL (70-110)
[2021-03-23 20:00] VITALS: BP 148/54
[2021-03-24] VITALS: BP 158/62
[2021-03-24] MEDS: PROPOFOL 1000 MG/ISO-OSM 100 ML IV PRN ×4 (00:28→22:50)
[2021-03-24] MEDS ORDERED: SODIUM CHLORIDE 0.9% 250 ML IV ONE ×2 (00:31→12:57)
[2021-03-24] MEDS: METOCLOPRAMIDE HCL 5 MG/ML 2 ML VIAL IVP SCH ×4 (00:32→23:14)
[2021-03-24] MEDS: FentaNYL CIT 1000MCG/0.9% NACL 100 ML IV PRN ×3 (03:22→18:14)
[2021-03-24 04:00] VITALS: BP 138/54
[2021-03-24 05:09] LABS: GLUCOSE,POINT OF CARE 115 MG/DL (70-110)
[2021-03-24 05:30] LABS: BASOPHILS % (AUTO) 0.6 % (0.0-2.0); EOSINOPHILS % (AUTO) 2.1 % (1.0-6.0); HEMATOCRIT 27.4 % (41-53); HEMOGLOBIN 9.3 g/dL (13.5-17.5); LYMPHOCYTES # (AUTO) 0.7 K/uL (1.0-4.8); MEAN CORPUSCULAR HEMOGLOBIN 29.5 pg (26.0-34.0); MEAN CORPUSCULAR HGB CONC 33.7 G/dL (31.0-37.0); MEAN CORPUSCULAR VOLUME 88 fL (80-100); MONOCYTES # (AUTO) 0.9 K/uL (0.1-1.0); MONOCYTES % (AUTO) 7.7 % (2.0-9.0); NEUTROPHILS # (AUTO) 9.4 K/uL (1.8-7.7); NEUTROPHILS % (AUTO) 83.6 % (40.0-70.0); PLATELET COUNT (AUTO) 366 K/uL (150-450); RED BLOOD CELL COUNT(AUTO) 3.13 MIL/uL (4.50-5.90); RED CELL DISTRIBUTION WIDTH 14.2 % (11.5-14.5)
[2021-03-24 05:37] LABS: ALBUMIN 1.9 g/dL (3.4-5.0); BILIRUBIN,TOTAL 0.3 mg/dL (0.1-1.0); C-REACTIVE PROTEIN QUANT 4.25 mg/dL (0.00-0.30); CALCIUM, TOTAL 8.1 mg/dL (8.8-10.5); CREATININE 5.02 mg/dL (0.60-1.30); POTASSIUM 4.1 mmol/L (3.5-5.1); TOTAL PROTEIN, SERUM 5.5 g/dL (6.4-8.2)
[2021-03-24 06:19] LABS: GLUCOSE,POINT OF CARE 97 MG/DL (70-110)
[2021-03-24 08:00] VITALS: BP 158/62
[2021-03-24] MEDS: ETHYL ALCOHOL 62% ANTISEPTIC NASAL INHALANT 0.6 ML AMPUL NASAL SCH ×2 (09:16→21:12)
[2021-03-24] MEDS: DEXAMETHASONE SOD PHOS 4 MG/ML VIAL IVP SCH (09:17)
[2021-03-24] MEDS: FAMOTIDINE 20 MG TABLET PO SCH (09:17)
[2021-03-24] MEDS: DOCUSATE SODIUM 100 MG CAPSULE PO SCH ×2 (09:17→21:12)
[2021-03-24] MEDS: METOPROLOL SUCCINATE 25 MG ER TABLET PO SCH (09:18)
[2021-03-24] MEDS: CHOLECALCIFEROL (VIT D3) 2,000 UNITS [50 MCG] TABLET PO SCH (09:18)
[2021-03-24] MEDS: HEPARIN SODIUM 25000 UNITS/D5W 250 ML IV PRN (11:05)
[2021-03-24 12:00] VITALS: BP 150/60
[2021-03-24] MEDS: CefTRIAXone SODIUM 2 GM in DEXTROSE 5%-WATER 50 ML IV SCH (12:37)
[2021-03-24] MEDS: MIDAZOLAM HCL 100 MG in SODIUM CHLORIDE 0.9% 180 ML IV PRN (12:38)
[2021-03-24 14:06] LABS: ABG A-A DIFF O2 228.4 mmHg (10-20.0); ABG CARBOXYHEMOGLOBIN 0.3 % (0.0-1.5); ABG HCO3 20.6 mmol/L (22.0-26.0); ABG METHEMOGLOBIN 0.3 % (0.0-1.5); ABG OXYGEN CONTENT 14.4 mL/dL (15.0-23.0); ABG OXYGEN SATURATION 96.3 % (95.0-98.0); ABG OXYHEMOGLOBIN 95.7 % (94.0-100.0); ABG PCO2 38 mmHg (35-45); ABG PH 7.354 (7.35-7.450); ABG TOTAL HEMOGLOBIN 10.6 G/dL (12.0-18.0); PO2, ARTERIAL BG 86.2 mmHg (84.0-92.0); SITE, BLOOD GAS ARTERIAL LINE; SOURCE, BLOOD GAS ARTERIAL
[2021-03-24 14:07] LABS: O2 DEVICE,BLOOD GAS VENTILATOR (ROOM AIR); PEEP,BG 10 cm H2O; VENT MODE, BG Press. Control Vent (ROOM AIR)
[2021-03-24 17:21] LABS: GLUCOSE,POINT OF CARE 114 MG/DL (70-110)
[2021-03-24 19:01] LABS: GLUCOSE,POINT OF CARE 110 MG/DL (70-110)
[2021-03-24 20:00] VITALS: BP 148/56
[2021-03-25] VITALS: BP 161/60
[2021-03-25] MEDS: HEPARIN SODIUM 25000 UNITS/D5W 250 ML IV PRN ×2 (01:24→16:23)
[2021-03-25] MEDS: PROPOFOL 1000 MG/ISO-OSM 100 ML IV PRN ×5 (02:45→19:44)
[2021-03-25] MEDS: FentaNYL CIT 1000MCG/0.9% NACL 100 ML IV PRN ×4 (02:46→23:50)
[2021-03-25 04:00] VITALS: BP 124/60
[2021-03-25] MEDS: MIDAZOLAM HCL 100 MG in SODIUM CHLORIDE 0.9% 180 ML IV PRN ×2 (04:49→22:54)
[2021-03-25 06:31] LABS: CALCIUM, TOTAL 8.7 mg/dL (8.8-10.5); CREATININE 6.18 mg/dL (0.60-1.30); MAGNESIUM 2.2 mg/dL (1.80-2.40); POTASSIUM 4.7 mmol/L (3.5-5.1)
[2021-03-25 06:49] LABS: PHOSPHORUS 10.6 mg/dL (2.5-4.9)
[2021-03-25 07:04] LABS: BASOPHILS % (AUTO) 0.4 % (0.0-2.0); EOSINOPHILS % (AUTO) 0.9 % (1.0-6.0); HEMATOCRIT 31.2 % (41-53); HEMOGLOBIN 10.2 g/dL (13.5-17.5); LYMPHOCYTES # (AUTO) 0.9 K/uL (1.0-4.8); LYMPHOCYTES % (AUTO) 5.3 % (22.0-44.0); MEAN CORPUSCULAR HEMOGLOBIN 29.6 pg (26.0-34.0); MEAN CORPUSCULAR HGB CONC 32.8 G/dL (31.0-37.0); MEAN CORPUSCULAR VOLUME 90 fL (80-100); MONOCYTES # (AUTO) 1.2 K/uL (0.1-1.0); MONOCYTES % (AUTO) 6.8 % (2.0-9.0); NEUTROPHILS # (AUTO) 14.8 K/uL (1.8-7.7); PLATELET COUNT (AUTO) 425 K/uL (150-450); RED BLOOD CELL COUNT(AUTO) 3.46 MIL/uL (4.50-5.90); RED CELL DISTRIBUTION WIDTH 14.8 % (11.5-14.5)
[2021-03-25 07:12] LABS: NEUTROPHILS % (AUTO) 86.6 % (40.0-70.0)
[2021-03-25 08:00] VITALS: BP 142/56
[2021-03-25] MEDS: METOCLOPRAMIDE HCL 5 MG/ML 2 ML VIAL IVP SCH ×3 (09:25→23:50)
[2021-03-25] MEDS: ETHYL ALCOHOL 62% ANTISEPTIC NASAL INHALANT 0.6 ML AMPUL NASAL SCH ×2 (09:26→21:52)
[2021-03-25] MEDS: DEXAMETHASONE SOD PHOS 4 MG/ML VIAL IVP SCH (09:26)
[2021-03-25] MEDS: FAMOTIDINE 20 MG TABLET PO SCH (09:27)
[2021-03-25] MEDS: DOCUSATE SODIUM 100 MG CAPSULE PO SCH ×2 (09:27→21:52)
[2021-03-25] MEDS: METOPROLOL SUCCINATE 25 MG ER TABLET PO SCH (09:28)
[2021-03-25] MEDS: CHOLECALCIFEROL (VIT D3) 2,000 UNITS [50 MCG] TABLET PO SCH (09:28)
[2021-03-25 12:00] VITALS: BP 160/61
[2021-03-25] MEDS ORDERED: HEPARIN SODIUM,PORCINE 5,000 UNITS/ML VIAL IVP PRN ×2 (15:45)
[2021-03-25 16:00] VITALS: BP 109/53
[2021-03-25] MEDS: CefTRIAXone SODIUM 2 GM in DEXTROSE 5%-WATER 50 ML IV SCH (16:22)
[2021-03-25] MEDS ORDERED: SODIUM BICARBONATE [ADULT] 8.4% 50 MEQ/50 ML SYRINGE IVP ONE (18:00)
[2021-03-25 20:00] VITALS: BP 132/60
[2021-03-26] VITALS: BP 137/59
[2021-03-26 00:11] LABS: GLUCOSE,POINT OF CARE 98 MG/DL (70-110)
[2021-03-26 00:11] LABS: GLUCOSE,POINT OF CARE 91 MG/DL (70-110)
[2021-03-26] MEDS: PROPOFOL 1000 MG/ISO-OSM 100 ML IV PRN ×6 (01:45→23:05)
[2021-03-26 04:00] VITALS: BP 173/62
[2021-03-26] MEDS: HEPARIN SODIUM 25000 UNITS/D5W 250 ML IV PRN ×2 (05:25→19:46)
[2021-03-26 05:59] LABS: HEMATOCRIT 29.1 % (41-53); HEMOGLOBIN 9.7 g/dL (13.5-17.5); MEAN CORPUSCULAR HEMOGLOBIN 29.4 pg (26.0-34.0); MEAN CORPUSCULAR HGB CONC 33.3 G/dL (31.0-37.0); MEAN CORPUSCULAR VOLUME 88 fL (80-100); PLATELET COUNT (AUTO) 359 K/uL (150-450); RED CELL DISTRIBUTION WIDTH 14.7 % (11.5-14.5)
[2021-03-26 06:41] LABS: ALBUMIN 1.8 g/dL (3.4-5.0); BILIRUBIN,TOTAL 0.3 mg/dL (0.1-1.0); C-REACTIVE PROTEIN QUANT 8.27 mg/dL (0.00-0.30); CALCIUM, TOTAL 8.3 mg/dL (8.8-10.5); CREATININE 5.02 mg/dL (0.60-1.30); POTASSIUM 4.3 mmol/L (3.5-5.1); TOTAL PROTEIN, SERUM 5.7 g/dL (6.4-8.2)
[2021-03-26 07:38] LABS: BAND NEUTROPHILS % (MANUAL) 5 % (0-5); LYMPHOCYTES % (MANUAL) 7 % (22-44); MONOCYTES % (MANUAL) 8 % (2-9); SEGMENTED NEUTROPHILS % 80 % (40-70)
[2021-03-26] MEDS: FentaNYL CIT 1000MCG/0.9% NACL 100 ML IV PRN ×3 (07:52→22:05)
[2021-03-26 08:00] VITALS: BP 164/62
[2021-03-26] MEDS: DEXAMETHASONE SOD PHOS 4 MG/ML VIAL IVP SCH (08:42)
[2021-03-26] MEDS: METOCLOPRAMIDE HCL 5 MG/ML 2 ML VIAL IVP SCH ×2 (08:42→16:20)
[2021-03-26] MEDS: FAMOTIDINE 20 MG TABLET PO SCH (08:43)
[2021-03-26] MEDS: ETHYL ALCOHOL 62% ANTISEPTIC NASAL INHALANT 0.6 ML AMPUL NASAL SCH ×2 (08:43→20:20)
[2021-03-26] MEDS: DOCUSATE SODIUM 100 MG CAPSULE PO SCH ×2 (08:43→20:20)
[2021-03-26] MEDS: METOPROLOL SUCCINATE 25 MG ER TABLET PO SCH (08:43)
[2021-03-26] MEDS: CHOLECALCIFEROL (VIT D3) 2,000 UNITS [50 MCG] TABLET PO SCH (08:43)
[2021-03-26 09:14] LABS: GLUCOSE,POINT OF CARE 87 MG/DL (70-110)
[2021-03-26 09:14] LABS: GLUCOSE,POINT OF CARE 88 MG/DL (70-110)
[2021-03-26 10:07] LABS: ABG A-A DIFF O2 225.6 mmHg (10-20.0); ABG BASE EXCESS -4.8 mmol/L (-2.0-3.0); ABG CARBOXYHEMOGLOBIN 0.3 % (0.0-1.5); ABG HCO3 20.8 mmol/L (22.0-26.0); ABG METHEMOGLOBIN 0.3 % (0.0-1.5); ABG OXYGEN CONTENT 14.2 mL/dL (15.0-23.0); ABG OXYGEN SATURATION 96.6 % (95.0-98.0); ABG PCO2 40 mmHg (35-45); ABG PH 7.342 (7.35-7.450); ABG TOTAL HEMOGLOBIN 10.4 G/dL (12.0-18.0); O2 DEVICE,BLOOD GAS VENTILATOR (ROOM AIR); PO2, ARTERIAL BG 86.8 mmHg (84.0-92.0); SITE, BLOOD GAS ARTERIAL LINE; SOURCE, BLOOD GAS ARTERIAL; TEMPERATURE, FAHRENHEIT, BG 98.1 FAHREN (96.0-98.6)
[2021-03-26 10:08] LABS: PEEP,BG 8 cm H2O; VT, ABG 470 ml
[2021-03-26 12:00] VITALS: BP 130/61
[2021-03-26] MEDS: CefTRIAXone SODIUM 2 GM in DEXTROSE 5%-WATER 50 ML IV SCH (12:10)
[2021-03-26] MEDS: BUMETANIDE 0.25 MG/ML 4 ML VIAL IVP SCH ×2 (14:49→20:20)
[2021-03-26] MEDS: HydrALAZINE HCL 20 MG/ML VIAL IVP PRN (14:49)
[2021-03-26] MEDS ORDERED: HEPARIN SODIUM,PORCINE 1,000 UNITS/ML VIAL IVP ONE (15:20)
[2021-03-26 16:00] VITALS: BP 161/60
[2021-03-26 17:56] LABS: GLUCOSE,POINT OF CARE 123 MG/DL (70-110)
[2021-03-26] MEDS: MIDAZOLAM HCL 100 MG in SODIUM CHLORIDE 0.9% 180 ML IV PRN (19:47)
[2021-03-26 20:00] VITALS: BP 123/55
[2021-03-26 20:13] LABS: GLUCOSE,POINT OF CARE 118 MG/DL (70-110)
[2021-03-27] VITALS: BP 123/53
[2021-03-27] MEDS: METOCLOPRAMIDE HCL 5 MG/ML 2 ML VIAL IVP SCH ×3 (00:52→16:16)
[2021-03-27] MEDS ORDERED: SODIUM CHLORIDE 0.9% 500 ML IV ONE (02:06)
[2021-03-27] MEDS: FentaNYL CIT 1000MCG/0.9% NACL 100 ML IV PRN ×5 (02:31→19:58)
[2021-03-27] MEDS: PROPOFOL 1000 MG/ISO-OSM 100 ML IV PRN ×4 (02:31→19:58)
[2021-03-27 02:40] LABS: GLUCOSE,POINT OF CARE 86 MG/DL (70-110)
[2021-03-27 04:00] VITALS: BP 146/55
[2021-03-27 04:29] LABS: BASOPHILS % (AUTO) 0.8 % (0.0-2.0); EOSINOPHILS % (AUTO) 2.8 % (1.0-6.0); HEMATOCRIT 27.6 % (41-53); HEMOGLOBIN 9.3 g/dL (13.5-17.5); LYMPHOCYTES # (AUTO) 0.9 K/uL (1.0-4.8); LYMPHOCYTES % (AUTO) 7.4 % (22.0-44.0); MEAN CORPUSCULAR HEMOGLOBIN 29.9 pg (26.0-34.0); MEAN CORPUSCULAR HGB CONC 33.6 G/dL (31.0-37.0); MEAN CORPUSCULAR VOLUME 89 fL (80-100); MONOCYTES # (AUTO) 1.2 K/uL (0.1-1.0); MONOCYTES % (AUTO) 10.6 % (2.0-9.0); NEUTROPHILS # (AUTO) 9.1 K/uL (1.8-7.7); NEUTROPHILS % (AUTO) 78.4 % (40.0-70.0); PLATELET COUNT (AUTO) 336 K/uL (150-450); RED BLOOD CELL COUNT(AUTO) 3.11 MIL/uL (4.50-5.90); RED CELL DISTRIBUTION WIDTH 14.8 % (11.5-14.5)
[2021-03-27 04:41] LABS: CALCIUM, TOTAL 8.3 mg/dL (8.8-10.5); CREATININE 5.91 mg/dL (0.60-1.30); POTASSIUM 4.3 mmol/L (3.5-5.1)
[2021-03-27 04:44] LABS: MAGNESIUM 2.2 mg/dL (1.80-2.40); PHOSPHORUS 6.3 mg/dL (2.5-4.9)
[2021-03-27 08:00] VITALS: BP 142/54
[2021-03-27] MEDS: DEXAMETHASONE SOD PHOS 4 MG/ML VIAL IVP SCH (08:14)
[2021-03-27] MEDS: FAMOTIDINE 20 MG TABLET PO SCH (08:15)
[2021-03-27] MEDS: BUMETANIDE 0.25 MG/ML 4 ML VIAL IVP SCH ×2 (08:15→21:54)
[2021-03-27] MEDS: METOPROLOL SUCCINATE 25 MG ER TABLET PO SCH (08:16)
[2021-03-27] MEDS: DOCUSATE SODIUM 100 MG CAPSULE PO SCH ×2 (08:16→21:52)
[2021-03-27] MEDS: ETHYL ALCOHOL 62% ANTISEPTIC NASAL INHALANT 0.6 ML AMPUL NASAL SCH ×2 (08:23→21:52)
[2021-03-27] MEDS: CHOLECALCIFEROL (VIT D3) 2,000 UNITS [50 MCG] TABLET PO SCH (08:24)
[2021-03-27] MEDS ORDERED: SODIUM CHLORIDE 0.9% 250 ML IV ONE (08:35)
[2021-03-27 09:45] LABS: ABG A-A DIFF O2 153.8 mmHg (10-20.0); ABG BASE EXCESS -4.6 mmol/L (-2.0-3.0); ABG CARBOXYHEMOGLOBIN 0.2 % (0.0-1.5); ABG HCO3 20.7 mmol/L (22.0-26.0); ABG METHEMOGLOBIN 0.3 % (0.0-1.5); ABG OXYGEN CONTENT 13.3 mL/dL (15.0-23.0); ABG OXYGEN SATURATION 95.1 % (95.0-98.0); ABG OXYHEMOGLOBIN 94.6 % (94.0-100.0); ABG PCO2 48 mmHg (35-45); ABG PH 7.281 (7.35-7.450); ABG TOTAL HEMOGLOBIN 9.9 G/dL (12.0-18.0); PO2, ARTERIAL BG 76.2 mmHg (84.0-92.0); SOURCE, BLOOD GAS ARTERIAL; TEMPERATURE, FAHRENHEIT, BG 98.5 FAHREN (96.0-98.6)
[2021-03-27 09:46] LABS: O2 DEVICE,BLOOD GAS VENTILATOR (ROOM AIR); PEEP,BG 5 cm H2O; SITE, BLOOD GAS ARTERIAL LINE; VT, ABG 470 ml
[2021-03-27] MEDS: HEPARIN SODIUM 25000 UNITS/D5W 250 ML IV PRN (11:18)
[2021-03-27] MEDS: MIDAZOLAM HCL 100 MG in SODIUM CHLORIDE 0.9% 180 ML IV PRN (11:19)
[2021-03-27 12:00] VITALS: BP 137/49
[2021-03-27] MEDS: CefTRIAXone SODIUM 2 GM in DEXTROSE 5%-WATER 50 ML IV SCH (13:13)
[2021-03-27 14:17] LABS: GLUCOSE,POINT OF CARE 117 MG/DL (70-110)
[2021-03-27 14:58] LABS: ABG A-A DIFF O2 159.3 mmHg (10-20.0); ABG BASE EXCESS -5.9 mmol/L (-2.0-3.0); ABG CARBOXYHEMOGLOBIN 0.3 % (0.0-1.5); ABG HCO3 19.7 mmol/L (22.0-26.0); ABG METHEMOGLOBIN 0.3 % (0.0-1.5); ABG OXYGEN CONTENT 13.7 mL/dL (15.0-23.0); ABG OXYGEN SATURATION 95.6 % (95.0-98.0); ABG PCO2 44 mmHg (35-45); ABG PH 7.286 (7.35-7.450); ABG TOTAL HEMOGLOBIN 10.2 G/dL (12.0-18.0); PO2, ARTERIAL BG 75.6 mmHg (84.0-92.0); SOURCE, BLOOD GAS ARTERIAL; TEMPERATURE, FAHRENHEIT, BG 97.2 FAHREN (96.0-98.6)
[2021-03-27 14:59] LABS: O2 DEVICE,BLOOD GAS VENTILATOR (ROOM AIR); SITE, BLOOD GAS ARTERIAL LINE; VT, ABG 470 ml
[2021-03-27 15:00] LABS: PEEP,BG 5 cm H2O
[2021-03-27 16:00] VITALS: BP 136/52
[2021-03-27 20:00] VITALS: BP 141/57
[2021-03-27] MEDS: QUEtiapine FUMARATE 25 MG TABLET PO SCH (21:53)
[2021-03-28] VITALS: BP 135/56
[2021-03-28] MEDS: METOCLOPRAMIDE HCL 5 MG/ML 2 ML VIAL IVP SCH ×4 (00:17→23:33)
[2021-03-28] MEDS ORDERED: SODIUM CHLORIDE 0.9% 500 ML IV ONE (00:24)
[2021-03-28 01:17] LABS: GLUCOSE,POINT OF CARE 105 MG/DL (70-110)
[2021-03-28] MEDS: PROPOFOL 1000 MG/ISO-OSM 100 ML IV PRN ×6 (02:16→23:32)
[2021-03-28] MEDS: FentaNYL CIT 1000MCG/0.9% NACL 100 ML IV PRN ×4 (02:17→20:05)
[2021-03-28 04:00] VITALS: BP 150/61
[2021-03-28] MEDS: MIDAZOLAM HCL 100 MG in SODIUM CHLORIDE 0.9% 180 ML IV PRN ×2 (04:56→21:35)
[2021-03-28 05:26] LABS: CALCIUM, TOTAL 7.6 mg/dL (8.8-10.5); CREATININE 3.83 mg/dL (0.60-1.30); POTASSIUM 3.4 mmol/L (3.5-5.1)
[2021-03-28] MEDS: HEPARIN SODIUM 25000 UNITS/D5W 250 ML IV PRN (06:10)
[2021-03-28 08:00] VITALS: BP 190/72
[2021-03-28] MEDS: HydrALAZINE HCL 20 MG/ML VIAL IVP PRN (08:14)
[2021-03-28 08:28] LABS: BASOPHILS % (AUTO) 0.4 % (0.0-2.0); EOSINOPHILS % (AUTO) 3.9 % (1.0-6.0); HEMATOCRIT 27.4 % (41-53); HEMOGLOBIN 9.1 g/dL (13.5-17.5); LYMPHOCYTES # (AUTO) 1.4 K/uL (1.0-4.8); LYMPHOCYTES % (AUTO) 11.6 % (22.0-44.0); MEAN CORPUSCULAR HEMOGLOBIN 29.3 pg (26.0-34.0); MEAN CORPUSCULAR HGB CONC 33.2 G/dL (31.0-37.0); MEAN CORPUSCULAR VOLUME 88 fL (80-100); MONOCYTES # (AUTO) 1.1 K/uL (0.1-1.0); MONOCYTES % (AUTO) 9.6 % (2.0-9.0); NEUTROPHILS # (AUTO) 8.8 K/uL (1.8-7.7); NEUTROPHILS % (AUTO) 74.5 % (40.0-70.0); PLATELET COUNT (AUTO) 386 K/uL (150-450); RED BLOOD CELL COUNT(AUTO) 3.11 MIL/uL (4.50-5.90); RED CELL DISTRIBUTION WIDTH 15.1 % (11.5-14.5)
[2021-03-28] MEDS: DOCUSATE SODIUM 100 MG CAPSULE PO SCH ×2 (08:50→20:30)
[2021-03-28] MEDS: ETHYL ALCOHOL 62% ANTISEPTIC NASAL INHALANT 0.6 ML AMPUL NASAL SCH ×2 (08:50→20:30)
[2021-03-28] MEDS: METOPROLOL SUCCINATE 25 MG ER TABLET PO SCH (08:51)
[2021-03-28] MEDS: DEXAMETHASONE SOD PHOS 4 MG/ML VIAL IVP SCH (08:51)
[2021-03-28] MEDS: AMINO ACIDS/PROTEIN HYDROLYS 30 ML TUBE GT SCH ×2 (08:51→17:05)
[2021-03-28] MEDS: FAMOTIDINE 20 MG TABLET PO SCH (08:51)
[2021-03-28] MEDS: CHOLECALCIFEROL (VIT D3) 2,000 UNITS [50 MCG] TABLET PO SCH (08:51)
[2021-03-28] MEDS: BUMETANIDE 0.25 MG/ML 4 ML VIAL IVP SCH ×2 (08:51→20:31)
[2021-03-28] MEDS ORDERED: HydrALAZINE HCL 20 MG/ML VIAL IVP ONE (10:00)
[2021-03-28] MEDS: CloNIDine 0.1 MG/24 HOUR PATCH TD SCH (10:20)
[2021-03-28 10:45] LABS: C-REACTIVE PROTEIN QUANT 5.15 mg/dL (0.00-0.30)
[2021-03-28 12:00] VITALS: BP 198/64
[2021-03-28] MEDS: CefTRIAXone SODIUM 2 GM in DEXTROSE 5%-WATER 50 ML IV SCH (12:54)
[2021-03-28 13:06] LABS: GLUCOSE,POINT OF CARE 94 MG/DL (70-110)
[2021-03-28 15:26] LABS: COVID AG,FIA SOURCE NASAL SWAB
[2021-03-28 15:52] LABS: GLUCOSE,POINT OF CARE 130 MG/DL (70-110)
[2021-03-28 16:00] VITALS: BP 134/55
[2021-03-28] MEDS ORDERED: HEPARIN SODIUM,PORCINE 1,000 UNITS/ML VIAL IVP ONE (16:10)
[2021-03-28 17:44] LABS: CREATININE 4.52 mg/dL (0.60-1.30)
[2021-03-28 18:09] LABS: GLUCOSE,POINT OF CARE 112 MG/DL (70-110)
[2021-03-28 20:00] VITALS: BP 156/54
[2021-03-28] MEDS: QUEtiapine FUMARATE 25 MG TABLET PO SCH (20:30)
[2021-03-29] VITALS: BP 165/55
[2021-03-29 00:16] LABS: GLUCOSE,POINT OF CARE 98 MG/DL (70-110)
[2021-03-29] MEDS: FentaNYL CIT 1000MCG/0.9% NACL 100 ML IV PRN ×3 (02:12→13:26)
[2021-03-29] MEDS: PROPOFOL 1000 MG/ISO-OSM 100 ML IV PRN ×6 (03:43→19:45)
[2021-03-29] MEDS: HydrALAZINE HCL 20 MG/ML VIAL IVP PRN ×2 (03:59→09:16)
[2021-03-29 04:00] VITALS: BP 201/67
[2021-03-29] MEDS: ACETAMINOPHEN 325 MG TABLET PO PRN (04:37)
[2021-03-29 06:24] LABS: CALCIUM, TOTAL 8.8 mg/dL (8.8-10.5); CREATININE 4.81 mg/dL (0.60-1.30); MAGNESIUM 2.1 mg/dL (1.80-2.40); POTASSIUM 3.8 mmol/L (3.5-5.1)
[2021-03-29 07:04] LABS: GLUCOSE,POINT OF CARE 83 MG/DL (70-110)
[2021-03-29 08:00] VITALS: BP 158/53
[2021-03-29] MEDS ORDERED: ROCURONIUM BROMIDE 10 MG/ML 5 ML VIAL IVP ONE (08:00)
[2021-03-29] MEDS: BUMETANIDE 0.25 MG/ML 4 ML VIAL IVP SCH ×2 (08:40→20:53)
[2021-03-29] MEDS: DEXAMETHASONE SOD PHOS 4 MG/ML VIAL IVP SCH (08:40)
[2021-03-29] MEDS: METOCLOPRAMIDE HCL 5 MG/ML 2 ML VIAL IVP SCH ×3 (08:40→23:19)
[2021-03-29] MEDS: CHOLECALCIFEROL (VIT D3) 2,000 UNITS [50 MCG] TABLET PO SCH (08:41)
[2021-03-29] MEDS: DOCUSATE SODIUM 100 MG CAPSULE PO SCH ×2 (08:41→20:53)
[2021-03-29] MEDS: METOPROLOL SUCCINATE 25 MG ER TABLET PO SCH (08:41)
[2021-03-29] MEDS: FAMOTIDINE 20 MG TABLET PO SCH (08:41)
[2021-03-29] MEDS: AMINO ACIDS/PROTEIN HYDROLYS 30 ML TUBE GT SCH ×2 (08:41→17:31)
[2021-03-29] MEDS: ETHYL ALCOHOL 62% ANTISEPTIC NASAL INHALANT 0.6 ML AMPUL NASAL SCH ×2 (08:41→20:52)
[2021-03-29] MEDS ORDERED: SODIUM CHLORIDE 0.9% 2,000 ML ONE (08:58)
[2021-03-29 11:09] LABS: ABG A-A DIFF O2 214.5 mmHg (10-20.0); ABG BASE EXCESS -6.8 mmol/L (-2.0-3.0); ABG CARBOXYHEMOGLOBIN 0.7 % (0.0-1.5); ABG HCO3 18.1 mmol/L (22.0-26.0); ABG METHEMOGLOBIN 0.1 % (0.0-1.5); ABG OXYGEN CONTENT 15.6 mL/dL (15.0-23.0); ABG OXYGEN SATURATION 89.3 % (95.0-98.0); ABG OXYHEMOGLOBIN 88.6 % (94.0-100.0); ABG PCO2 66 mmHg (35-45); ABG TOTAL HEMOGLOBIN 12.5 G/dL (12.0-18.0); PO2, ARTERIAL BG 67.5 mmHg (84.0-92.0); SOURCE, BLOOD GAS ARTERIAL; TEMPERATURE, FAHRENHEIT, BG 98.6 FAHREN (96.0-98.6)
[2021-03-29 11:12] LABS: ABG PH 7.142 (7.35-7.450); SITE, BLOOD GAS ARTERIAL LINE
[2021-03-29 11:13] LABS: O2 DEVICE,BLOOD GAS VENTILATOR (ROOM AIR); PEEP,BG 5 cm H2O; VT, ABG 470 ml
[2021-03-29] MEDS: HYDROmorphone 2 MG/ML VIAL IVP PRN (11:29)
[2021-03-29] MEDS: INSULIN LISPRO 100 UNITS/ML SQ PRN (11:56)
[2021-03-29 12:00] VITALS: BP 150/54
[2021-03-29] MEDS: MIDAZOLAM HCL 100 MG in SODIUM CHLORIDE 0.9% 180 ML IV PRN (12:15)
[2021-03-29] MEDS: CefTRIAXone SODIUM 2 GM in DEXTROSE 5%-WATER 50 ML IV SCH (13:19)
[2021-03-29 15:17] LABS: ABG A-A DIFF O2 205.5 mmHg (10-20.0); ABG BASE EXCESS -3.5 mmol/L (-2.0-3.0); ABG CARBOXYHEMOGLOBIN 0.6 % (0.0-1.5); ABG HCO3 20.6 mmol/L (22.0-26.0); ABG METHEMOGLOBIN 0.1 % (0.0-1.5); ABG OXYGEN CONTENT 16.1 mL/dL (15.0-23.0); ABG OXYGEN SATURATION 94.1 % (95.0-98.0); ABG OXYHEMOGLOBIN 93.4 % (94.0-100.0); ABG TOTAL HEMOGLOBIN 12.2 G/dL (12.0-18.0); PO2, ARTERIAL BG 74.2 mmHg (84.0-92.0); SOURCE, BLOOD GAS ARTERIAL; TEMPERATURE, FAHRENHEIT, BG 98.6 FAHREN (96.0-98.6)
[2021-03-29 15:20] LABS: ABG PCO2 68 mmHg (35-45); ABG PH 7.179 (7.35-7.450); O2 DEVICE,BLOOD GAS VENTILATOR (ROOM AIR); SITE, BLOOD GAS ARTERIAL LINE
[2021-03-29 15:22] LABS: PEEP,BG 8 cm H2O; VT, ABG 470 ml
[2021-03-29 16:00] VITALS: BP 125/51
[2021-03-29] MEDS: CISATRACURIUM BESYLATE 100 MG in DEXTROSE 5%-WATER 240 ML IV PRN ×2 (16:18→22:08)
[2021-03-29 17:36] LABS: GLUCOSE,POINT OF CARE 173 MG/DL (70-110)
[2021-03-29 19:47] LABS: ABG A-A DIFF O2 206.6 mmHg (10-20.0); ABG BASE EXCESS -4.2 mmol/L (-2.0-3.0); ABG CARBOXYHEMOGLOBIN 0.7 % (0.0-1.5); ABG HCO3 20.3 mmol/L (22.0-26.0); ABG METHEMOGLOBIN 0.1 % (0.0-1.5); ABG OXYGEN CONTENT 15.6 mL/dL (15.0-23.0); ABG OXYHEMOGLOBIN 94.2 % (94.0-100.0); ABG PCO2 65 mmHg (35-45); ABG TOTAL HEMOGLOBIN 11.7 G/dL (12.0-18.0); SOURCE, BLOOD GAS ARTERIAL; TEMPERATURE, FAHRENHEIT, BG 97.6 FAHREN (96.0-98.6)
[2021-03-29 19:48] LABS: ABG PH 7.188 (7.35-7.450); O2 DEVICE,BLOOD GAS VENTILATOR (ROOM AIR); SITE, BLOOD GAS ARTERIAL LINE; VT, ABG 470 ml
[2021-03-29 19:49] LABS: PEEP,BG 8 cm H2O
[2021-03-29 20:00] VITALS: BP 149/55
[2021-03-29] MEDS: QUEtiapine FUMARATE 25 MG TABLET PO SCH (20:53)
[2021-03-29] MEDS: HEPARIN SODIUM 25000 UNITS/D5W 250 ML IV PRN (21:12)
[2021-03-29 21:52] LABS: GLUCOSE,POINT OF CARE 129 MG/DL (70-110)
[2021-03-30] VITALS: BP 164/58
[2021-03-30] MEDS: MIDAZOLAM HCL 100 MG in SODIUM CHLORIDE 0.9% 180 ML IV PRN ×2 (00:12→11:04)
[2021-03-30] MEDS: FentaNYL CIT 1000MCG/0.9% NACL 100 ML IV PRN ×5 (00:12→21:13)
[2021-03-30 00:23] LABS: GLUCOSE,POINT OF CARE 107 MG/DL (70-110)
[2021-03-30] MEDS: HEPARIN SODIUM 25000 UNITS/D5W 250 ML IV PRN ×2 (02:12→11:05)
[2021-03-30 04:00] VITALS: BP 168/66
[2021-03-30] MEDS: CISATRACURIUM BESYLATE 100 MG in DEXTROSE 5%-WATER 240 ML IV PRN ×3 (04:02→18:28)
[2021-03-30] MEDS: PROPOFOL 1000 MG/ISO-OSM 100 ML IV PRN ×4 (04:03→22:31)
[2021-03-30 05:41] LABS: BASOPHILS % (AUTO) 0.1 % (0.0-2.0); EOSINOPHILS % (AUTO) 1.3 % (1.0-6.0); HEMATOCRIT 30.2 % (41-53); HEMOGLOBIN 9.7 g/dL (13.5-17.5); LYMPHOCYTES # (AUTO) 0.8 K/uL (1.0-4.8); LYMPHOCYTES % (AUTO) 3.1 % (22.0-44.0); MEAN CORPUSCULAR VOLUME 91 fL (80-100); MONOCYTES # (AUTO) 1.7 K/uL (0.1-1.0); MONOCYTES % (AUTO) 6.1 % (2.0-9.0); NEUTROPHILS # (AUTO) 24.8 K/uL (1.8-7.7); PLATELET COUNT (AUTO) 272 K/uL (150-450); RED BLOOD CELL COUNT(AUTO) 3.34 MIL/uL (4.50-5.90); RED CELL DISTRIBUTION WIDTH 15.9 % (11.5-14.5)
[2021-03-30 05:46] LABS: NEUTROPHILS % (AUTO) 89.4 % (40.0-70.0)
[2021-03-30 05:52] LABS: ALBUMIN 1.9 g/dL (3.4-5.0); BILIRUBIN,TOTAL 0.3 mg/dL (0.1-1.0); CALCIUM, TOTAL 8.4 mg/dL (8.8-10.5); CREATININE 3.76 mg/dL (0.60-1.30); MAGNESIUM 2.1 mg/dL (1.80-2.40); PHOSPHORUS 7.9 mg/dL (2.5-4.9); POTASSIUM 5.9 mmol/L (3.5-5.1)
[2021-03-30 06:40] LABS: GLUCOSE,POINT OF CARE 99 MG/DL (70-110)
[2021-03-30 08:00] VITALS: BP 145/64
[2021-03-30] MEDS: METOPROLOL SUCCINATE 25 MG ER TABLET PO SCH (08:53)
[2021-03-30] MEDS: BUMETANIDE 0.25 MG/ML 4 ML VIAL IVP SCH ×2 (08:53→20:46)
[2021-03-30] MEDS: DEXAMETHASONE SOD PHOS 4 MG/ML VIAL IVP SCH (08:53)
[2021-03-30] MEDS: FAMOTIDINE 20 MG TABLET PO SCH (08:53)
[2021-03-30] MEDS: ETHYL ALCOHOL 62% ANTISEPTIC NASAL INHALANT 0.6 ML AMPUL NASAL SCH ×2 (08:53→20:57)
[2021-03-30] MEDS: METOCLOPRAMIDE HCL 5 MG/ML 2 ML VIAL IVP SCH ×2 (08:53→16:10)
[2021-03-30] MEDS: DOCUSATE SODIUM 100 MG CAPSULE PO SCH ×2 (08:54→20:57)
[2021-03-30] MEDS: AMINO ACIDS/PROTEIN HYDROLYS 30 ML TUBE GT SCH ×2 (08:54→17:25)
[2021-03-30] MEDS: CHOLECALCIFEROL (VIT D3) 2,000 UNITS [50 MCG] TABLET PO SCH (08:54)
[2021-03-30] MEDS ORDERED: QUEtiapine FUMARATE 25 MG TABLET PO ONE (11:00)
[2021-03-30 12:00] VITALS: BP 133/55
[2021-03-30] MEDS ORDERED: HEPARIN SODIUM,PORCINE 1,000 UNITS/ML VIAL IVP ONE ×2 (12:00→15:32)
[2021-03-30 12:43] LABS: APPEARANCE,URINE CLOUDY (CLEAR); BILIRUBIN,URINE NEGATIVE (NEGATIVE); GLUCOSE, URINE (UA) NEGATIVE (NEGATIVE); KETONES,URINE NEGATIVE (NEGATIVE); LEUKOCYTE ESTERASE ,URINE NEGATIVE (NEGATIVE); NITRATE,URINE NEGATIVE (NEGATIVE); OCCULT BLOOD,URINE NEGATIVE (NEGATIVE); PROTEIN,URINE POS 1+ (NEGATIVE); UROBILINOGEN,URINE 0.2 mg/dL (<=1.0)
[2021-03-30 12:49] LABS: ABG BASE EXCESS -4.8 mmol/L (-2.0-3.0); ABG CARBOXYHEMOGLOBIN 0.9 % (0.0-1.5); ABG HCO3 20.5 mmol/L (22.0-26.0); ABG METHEMOGLOBIN 0.3 % (0.0-1.5); ABG OXYGEN SATURATION 96.4 % (95.0-98.0); ABG OXYHEMOGLOBIN 95.2 % (94.0-100.0); ABG PCO2 51 mmHg (35-45); ABG TOTAL HEMOGLOBIN 9.6 G/dL (12.0-18.0); PO2, ARTERIAL BG 85.2 mmHg (84.0-92.0); SOURCE, BLOOD GAS ARTERIAL; TEMPERATURE, FAHRENHEIT, BG 98.1 FAHREN (96.0-98.6)
[2021-03-30 12:50] LABS: O2 DEVICE,BLOOD GAS VENTILATOR (ROOM AIR); PEEP,BG 5 cm H2O; SITE, BLOOD GAS ARTERIAL LINE; SPONTANEOUS VT, BG 471 ml; VT, ABG 470 ml
[2021-03-30 13:01] LABS: BACTERIA,URINE Few /HPF (None Seen); FINE GRANULAR CASTS,URINE 0-2 /LPF (None Seen); RBC,URINE 0-2 /HPF (0-2); WBC,URINE 0-2 /HPF (0-5)
[2021-03-30] MEDS: CefTRIAXone SODIUM 2 GM in DEXTROSE 5%-WATER 50 ML IV SCH (13:16)
[2021-03-30 16:00] VITALS: BP 113/56
[2021-03-30 17:43] LABS: GLUCOSE,POINT OF CARE 113 MG/DL (70-110)
[2021-03-30 20:00] VITALS: BP 158/58
[2021-03-30] MEDS: QUEtiapine FUMARATE 25 MG TABLET PO SCH (20:57)
[2021-03-31] VITALS (25 sets, daily range): BP systolic 128–180; BP diastolic 48–65
[2021-03-31] MEDS: METOCLOPRAMIDE HCL 5 MG/ML 2 ML VIAL IVP SCH ×3 (00:14→16:43)
[2021-03-31] MEDS ORDERED: SODIUM CHLORIDE 0.9% 500 ML IV ONE (02:15)
[2021-03-31] MEDS: PROPOFOL 1000 MG/ISO-OSM 100 ML IV PRN ×6 (02:43→21:35)
[2021-03-31] MEDS: CISATRACURIUM BESYLATE 100 MG in DEXTROSE 5%-WATER 240 ML IV PRN ×3 (02:45→19:52)
[2021-03-31 03:08] LABS: GLUCOSE,POINT OF CARE 91 MG/DL (70-110)
[2021-03-31 03:08] LABS: GLUCOSE,POINT OF CARE 116 MG/DL (70-110)
[2021-03-31] MEDS: FentaNYL CIT 1000MCG/0.9% NACL 100 ML IV PRN ×4 (04:05→20:17)
[2021-03-31] MEDS: MIDAZOLAM HCL 100 MG in SODIUM CHLORIDE 0.9% 180 ML IV PRN ×2 (04:06→14:38)
[2021-03-31] MEDS: HEPARIN SODIUM 25000 UNITS/D5W 250 ML IV PRN (04:12)
[2021-03-31 05:38] LABS: CALCIUM, TOTAL 7.9 mg/dL (8.8-10.5); CREATININE 2.83 mg/dL (0.60-1.30); POTASSIUM 3.8 mmol/L (3.5-5.1)
[2021-03-31 05:43] LABS: BASOPHILS % (AUTO) 0.5 % (0.0-2.0); EOSINOPHILS % (AUTO) 3.3 % (1.0-6.0); HEMATOCRIT 24.5 % (41-53); HEMOGLOBIN 8.3 g/dL (13.5-17.5); LYMPHOCYTES # (AUTO) 0.8 K/uL (1.0-4.8); LYMPHOCYTES % (AUTO) 5.9 % (22.0-44.0); MEAN CORPUSCULAR HEMOGLOBIN 29.7 pg (26.0-34.0); MEAN CORPUSCULAR HGB CONC 33.7 G/dL (31.0-37.0); MEAN CORPUSCULAR VOLUME 88 fL (80-100); MONOCYTES % (AUTO) 7.4 % (2.0-9.0); NEUTROPHILS # (AUTO) 11.8 K/uL (1.8-7.7); NEUTROPHILS % (AUTO) 82.9 % (40.0-70.0); PLATELET COUNT (AUTO) 225 K/uL (150-450); RED BLOOD CELL COUNT(AUTO) 2.78 MIL/uL (4.50-5.90); RED CELL DISTRIBUTION WIDTH 15.6 % (11.5-14.5)
[2021-03-31] MEDS: BUMETANIDE 0.25 MG/ML 4 ML VIAL IVP SCH ×2 (08:16→22:02)
[2021-03-31] MEDS: AMINO ACIDS/PROTEIN HYDROLYS 30 ML TUBE GT SCH ×2 (08:17→12:00)
[2021-03-31] MEDS: DEXAMETHASONE SOD PHOS 4 MG/ML VIAL IVP SCH (08:21)
[2021-03-31] MEDS: ETHYL ALCOHOL 62% ANTISEPTIC NASAL INHALANT 0.6 ML AMPUL NASAL SCH ×2 (08:21→22:03)
[2021-03-31] MEDS: FAMOTIDINE 20 MG TABLET PO SCH (08:21)
[2021-03-31] MEDS: DOCUSATE SODIUM 100 MG CAPSULE PO SCH ×2 (08:21→22:03)
[2021-03-31] MEDS: QUEtiapine FUMARATE 25 MG TABLET PO SCH ×2 (08:22→22:03)
[2021-03-31] MEDS: METOPROLOL SUCCINATE 25 MG ER TABLET PO SCH ×2 (08:22→22:03)
[2021-03-31] MEDS: CHOLECALCIFEROL (VIT D3) 2,000 UNITS [50 MCG] TABLET PO SCH (08:23)
[2021-03-31] MEDS: HydrALAZINE HCL 20 MG/ML VIAL IVP PRN (09:12)
[2021-03-31] MEDS ORDERED: OxyCODONE HCL 5 MG IR TABLET PO PRN (10:45)
[2021-03-31] MEDS: NiCARDipine HCL 25 MG in SODIUM CHLORIDE 0.9% 240 ML IV PRN ×4 (11:25→20:19)
[2021-03-31] MEDS: CefTRIAXone SODIUM 2 GM in DEXTROSE 5%-WATER 50 ML IV SCH (14:16)
[2021-03-31] MEDS: HydrALAZINE HCL 25 MG TABLET PO SCH ×3 (14:18→22:02)
[2021-03-31 16:47] LABS: OCCULT BLOOD,GASTRIC FLUID POSITIVE (NEGATIVE)
[2021-03-31] MEDS: INSULIN LISPRO 100 UNITS/ML SQ PRN (18:46)
[2021-03-31] MEDS ORDERED: NiCARDipine HCL 50 MG in DEXTROSE 5%-WATER 230 ML IV PRN (22:30)
[2021-04-01] VITALS (23 sets, daily range): BP systolic 101–163; BP diastolic 40–61
[2021-04-01 00:48] LABS: GLUCOSE,POINT OF CARE 79 MG/DL (70-110)
[2021-04-01] MEDS: METOCLOPRAMIDE HCL 5 MG/ML 2 ML VIAL IVP SCH ×3 (00:57→16:03)
[2021-04-01 03:11] LABS: GLUCOSE,POINT OF CARE 141 MG/DL (70-110)
[2021-04-01 03:11] LABS: GLUCOSE,POINT OF CARE 125 MG/DL (70-110)
[2021-04-01 03:11] LABS: GLUCOSE,POINT OF CARE 96 MG/DL (70-110)
[2021-04-01] MEDS: FentaNYL CIT 1000MCG/0.9% NACL 100 ML IV PRN ×3 (03:33→17:01)
[2021-04-01] MEDS: PROPOFOL 1000 MG/ISO-OSM 100 ML IV PRN ×5 (03:35→22:22)
[2021-04-01 06:20] LABS: GLUCOSE,POINT OF CARE 78 MG/DL (70-110)
[2021-04-01 06:32] LABS: BASOPHILS % (AUTO) 0.4 % (0.0-2.0); EOSINOPHILS % (AUTO) 3.8 % (1.0-6.0); HEMOGLOBIN 7.6 g/dL (13.5-17.5); LYMPHOCYTES # (AUTO) 0.6 K/uL (1.0-4.8); LYMPHOCYTES % (AUTO) 5.9 % (22.0-44.0); MEAN CORPUSCULAR HEMOGLOBIN 29.5 pg (26.0-34.0); MEAN CORPUSCULAR HGB CONC 32.9 G/dL (31.0-37.0); MEAN CORPUSCULAR VOLUME 90 fL (80-100); MONOCYTES # (AUTO) 0.8 K/uL (0.1-1.0); NEUTROPHILS # (AUTO) 8.3 K/uL (1.8-7.7); NEUTROPHILS % (AUTO) 81.9 % (40.0-70.0); PLATELET COUNT (AUTO) 224 K/uL (150-450); RED BLOOD CELL COUNT(AUTO) 2.57 MIL/uL (4.50-5.90); RED CELL DISTRIBUTION WIDTH 15.2 % (11.5-14.5)
[2021-04-01 06:44] LABS: ALBUMIN 1.6 g/dL (3.4-5.0); BILIRUBIN,TOTAL 0.3 mg/dL (0.1-1.0); CALCIUM, TOTAL 8.1 mg/dL (8.8-10.5); CREATININE 4.19 mg/dL (0.60-1.30); POTASSIUM 3.5 mmol/L (3.5-5.1); TOTAL PROTEIN, SERUM 4.9 g/dL (6.4-8.2)
[2021-04-01] MEDS: AMINO ACIDS/PROTEIN HYDROLYS 30 ML TUBE GT SCH ×2 (08:00→12:00)
[2021-04-01] MEDS: DOCUSATE SODIUM 100 MG CAPSULE PO SCH ×2 (09:00→20:38)
[2021-04-01] MEDS: METOPROLOL SUCCINATE 25 MG ER TABLET PO SCH ×3 (09:00→21:07)
[2021-04-01] MEDS: QUEtiapine FUMARATE 25 MG TABLET PO SCH ×2 (09:00→20:38)
[2021-04-01] MEDS: HydrALAZINE HCL 25 MG TABLET PO SCH ×4 (09:00→20:37)
[2021-04-01] MEDS: DEXAMETHASONE SOD PHOS 4 MG/ML VIAL IVP SCH (09:09)
[2021-04-01] MEDS: ETHYL ALCOHOL 62% ANTISEPTIC NASAL INHALANT 0.6 ML AMPUL NASAL SCH ×2 (09:09→20:37)
[2021-04-01] MEDS: FAMOTIDINE 20 MG TABLET PO SCH (09:09)
[2021-04-01] MEDS: CHOLECALCIFEROL (VIT D3) 2,000 UNITS [50 MCG] TABLET PO SCH (09:09)
[2021-04-01] MEDS: BUMETANIDE 0.25 MG/ML 4 ML VIAL IVP SCH ×2 (09:09→20:37)
[2021-04-01] MEDS ORDERED: SODIUM CHLORIDE 0.9% 2,000 ML ONE (10:04)
[2021-04-01] MEDS ORDERED: ALTEPLASE 2 MG/VIAL IVCATH ONE ×2 (11:45→12:00)
[2021-04-01] MEDS ORDERED: HEPARIN SODIUM,PORCINE 1,000 UNITS/ML VIAL IVP ONE (16:31)
[2021-04-01 17:15] LABS: GLUCOSE,POINT OF CARE 104 MG/DL (70-110)
[2021-04-01] MEDS: MIDAZOLAM HCL 100 MG in SODIUM CHLORIDE 0.9% 180 ML IV PRN (18:25)
[2021-04-02] VITALS (7 sets, daily range): BP systolic 93–241; BP diastolic 43–67
[2021-04-02 01:46] LABS: GLUCOSE,POINT OF CARE 111 MG/DL (70-110)
[2021-04-02] MEDS: FentaNYL CIT 1000MCG/0.9% NACL 100 ML IV PRN ×3 (02:09→20:59)
[2021-04-02] MEDS ORDERED: HydrALAZINE HCL 20 MG/ML VIAL IVP ONE (04:30)
[2021-04-02] MEDS ORDERED: NITROGLYCERIN 2% (1 GM=INCH) PACKET TP ONE (04:30)
[2021-04-02] MEDS: PROPOFOL 1000 MG/ISO-OSM 100 ML IV PRN ×4 (04:49→17:17)
[2021-04-02 05:29] LABS: BASOPHILS % (AUTO) 0.7 % (0.0-2.0); EOSINOPHILS % (AUTO) 2.9 % (1.0-6.0); HEMATOCRIT 27.3 % (41-53); HEMOGLOBIN 8.9 g/dL (13.5-17.5); LYMPHOCYTES # (AUTO) 0.9 K/uL (1.0-4.8); LYMPHOCYTES % (AUTO) 8.3 % (22.0-44.0); MEAN CORPUSCULAR HEMOGLOBIN 28.9 pg (26.0-34.0); MEAN CORPUSCULAR HGB CONC 32.7 G/dL (31.0-37.0); MEAN CORPUSCULAR VOLUME 88 fL (80-100); MONOCYTES % (AUTO) 8.6 % (2.0-9.0); NEUTROPHILS # (AUTO) 8.9 K/uL (1.8-7.7); NEUTROPHILS % (AUTO) 79.5 % (40.0-70.0); PLATELET COUNT (AUTO) 244 K/uL (150-450); RED BLOOD CELL COUNT(AUTO) 3.08 MIL/uL (4.50-5.90); RED CELL DISTRIBUTION WIDTH 15.4 % (11.5-14.5)
[2021-04-02 05:41] LABS: ALBUMIN 1.7 g/dL (3.4-5.0); BILIRUBIN,TOTAL 0.3 mg/dL (0.1-1.0); CALCIUM, TOTAL 8.3 mg/dL (8.8-10.5); CREATININE 4.31 mg/dL (0.60-1.30); POTASSIUM 3.4 mmol/L (3.5-5.1); TOTAL PROTEIN, SERUM 5.3 g/dL (6.4-8.2)
[2021-04-02] MEDS: AMINO ACIDS/PROTEIN HYDROLYS 30 ML TUBE GT SCH ×2 (08:00→13:10)
[2021-04-02] MEDS: METOCLOPRAMIDE HCL 5 MG/ML 2 ML VIAL IVP SCH ×3 (08:00→15:20)
[2021-04-02] MEDS ORDERED: SODIUM CHLORIDE 0.9% 2,000 ML ONE (09:59)
[2021-04-02] MEDS: FAMOTIDINE 20 MG TABLET PO SCH (10:17)
[2021-04-02] MEDS: BUMETANIDE 0.25 MG/ML 4 ML VIAL IVP SCH ×2 (10:17→22:28)
[2021-04-02] MEDS: DEXAMETHASONE SOD PHOS 4 MG/ML VIAL IVP SCH (10:17)
[2021-04-02] MEDS: DOCUSATE SODIUM 100 MG CAPSULE PO SCH ×2 (10:17→22:28)
[2021-04-02] MEDS: ETHYL ALCOHOL 62% ANTISEPTIC NASAL INHALANT 0.6 ML AMPUL NASAL SCH ×2 (10:17→22:28)
[2021-04-02] MEDS: HydrALAZINE HCL 25 MG TABLET PO SCH ×5 (10:17→22:28)
[2021-04-02] MEDS: METOPROLOL SUCCINATE 25 MG ER TABLET PO SCH ×2 (10:18→22:28)
[2021-04-02] MEDS: CHOLECALCIFEROL (VIT D3) 2,000 UNITS [50 MCG] TABLET PO SCH (10:18)
[2021-04-02] MEDS: QUEtiapine FUMARATE 25 MG TABLET PO SCH ×2 (10:18→22:28)
[2021-04-02 15:41] LABS: GLUCOSE,POINT OF CARE 116 MG/DL (70-110)
[2021-04-02 15:44] LABS: GLUCOSE,POINT OF CARE 76 MG/DL (70-110)
[2021-04-03] VITALS (8 sets, daily range): BP systolic 134–189; BP diastolic 51–67
[2021-04-03] MEDS: MIDAZOLAM HCL 100 MG in SODIUM CHLORIDE 0.9% 180 ML IV PRN ×3 (00:48→12:30)
[2021-04-03] MEDS: METOCLOPRAMIDE HCL 5 MG/ML 2 ML VIAL IVP SCH ×3 (00:48→15:42)
[2021-04-03 03:22] LABS: GLUCOSE,POINT OF CARE 129 MG/DL (70-110)
[2021-04-03 03:22] LABS: GLUCOSE,POINT OF CARE 103 MG/DL (70-110)
[2021-04-03] MEDS: PROPOFOL 1000 MG/ISO-OSM 100 ML IV PRN ×4 (03:26→18:03)
[2021-04-03] MEDS: HydrALAZINE HCL 20 MG/ML VIAL IVP PRN (03:51)
[2021-04-03 05:29] LABS: BASOPHILS % (AUTO) 0.6 % (0.0-2.0); EOSINOPHILS % (AUTO) 2.4 % (1.0-6.0); HEMATOCRIT 23.9 % (41-53); LYMPHOCYTES # (AUTO) 0.7 K/uL (1.0-4.8); LYMPHOCYTES % (AUTO) 7.3 % (22.0-44.0); MEAN CORPUSCULAR HEMOGLOBIN 29.6 pg (26.0-34.0); MEAN CORPUSCULAR HGB CONC 33.5 G/dL (31.0-37.0); MEAN CORPUSCULAR VOLUME 88 fL (80-100); MONOCYTES # (AUTO) 0.9 K/uL (0.1-1.0); MONOCYTES % (AUTO) 9.8 % (2.0-9.0); NEUTROPHILS # (AUTO) 7.4 K/uL (1.8-7.7); NEUTROPHILS % (AUTO) 79.9 % (40.0-70.0); PLATELET COUNT (AUTO) 229 K/uL (150-450); RED CELL DISTRIBUTION WIDTH 15.3 % (11.5-14.5)
[2021-04-03 05:51] LABS: ALBUMIN 1.5 g/dL (3.4-5.0); BILIRUBIN,TOTAL 0.3 mg/dL (0.1-1.0); CALCIUM, TOTAL 7.9 mg/dL (8.8-10.5); CREATININE 3.61 mg/dL (0.60-1.30); POTASSIUM 3.8 mmol/L (3.5-5.1)
[2021-04-03] MEDS: FentaNYL CIT 1000MCG/0.9% NACL 100 ML IV PRN ×3 (06:02→19:30)
[2021-04-03 06:42] LABS: GLUCOSE,POINT OF CARE 77 MG/DL (70-110)
[2021-04-03] MEDS: AMINO ACIDS/PROTEIN HYDROLYS 30 ML TUBE GT SCH ×2 (08:52→12:29)
[2021-04-03] MEDS: BUMETANIDE 0.25 MG/ML 4 ML VIAL IVP SCH ×2 (08:52→20:08)
[2021-04-03] MEDS: DEXAMETHASONE SOD PHOS 4 MG/ML VIAL IVP SCH (08:53)
[2021-04-03] MEDS: DOCUSATE SODIUM 100 MG CAPSULE PO SCH ×2 (08:53→20:09)
[2021-04-03] MEDS: METOPROLOL SUCCINATE 25 MG ER TABLET PO SCH ×2 (08:53→21:00)
[2021-04-03] MEDS: CHOLECALCIFEROL (VIT D3) 2,000 UNITS [50 MCG] TABLET PO SCH (08:53)
[2021-04-03] MEDS: FAMOTIDINE 20 MG TABLET PO SCH (08:53)
[2021-04-03] MEDS: HydrALAZINE HCL 25 MG TABLET PO SCH ×4 (08:53→20:08)
[2021-04-03] MEDS: QUEtiapine FUMARATE 25 MG TABLET PO SCH ×2 (08:58→20:09)
[2021-04-03] MEDS: ETHYL ALCOHOL 62% ANTISEPTIC NASAL INHALANT 0.6 ML AMPUL NASAL SCH ×2 (08:58→20:09)
[2021-04-03] MEDS ORDERED: SODIUM CHLORIDE 0.9% 500 ML IV ONE (15:50)
[2021-04-03] MEDS ORDERED: HEPARIN SODIUM,PORCINE 1,000 UNITS/ML VIAL IVP ONE (16:01)
[2021-04-03] MEDS ORDERED: SODIUM CHLORIDE 0.9% 250 ML IV ONE (16:34)
[2021-04-03 17:52] LABS: GLUCOSE,POINT OF CARE 114 MG/DL (70-110)
[2021-04-03 19:45] LABS: GLUCOSE,POINT OF CARE 139 MG/DL (70-110)
[2021-04-04] VITALS (8 sets, daily range): BP systolic 135–185; BP diastolic 47–68
[2021-04-04] MEDS: PROPOFOL 1000 MG/ISO-OSM 100 ML IV PRN ×5 (00:33→12:23)
[2021-04-04] MEDS: FentaNYL CIT 1000MCG/0.9% NACL 100 ML IV PRN ×4 (00:33→22:21)
[2021-04-04] MEDS: METOCLOPRAMIDE HCL 5 MG/ML 2 ML VIAL IVP SCH ×3 (00:34→17:06)
[2021-04-04] MEDS: MIDAZOLAM HCL 100 MG in SODIUM CHLORIDE 0.9% 180 ML IV PRN ×2 (00:34→13:11)
[2021-04-04 01:12] LABS: GLUCOSE,POINT OF CARE 87 MG/DL (70-110)
[2021-04-04] MEDS: HydrALAZINE HCL 20 MG/ML VIAL IVP PRN ×3 (01:41→22:55)
[2021-04-04] MEDS ORDERED: HydrALAZINE HCL 20 MG/ML VIAL IVP ONE (02:45)
[2021-04-04 05:11] LABS: BASOPHILS % (AUTO) 0.6 % (0.0-2.0); EOSINOPHILS % (AUTO) 3.2 % (1.0-6.0); HEMATOCRIT 27.9 % (41-53); HEMOGLOBIN 9.3 g/dL (13.5-17.5); LYMPHOCYTES # (AUTO) 0.6 K/uL (1.0-4.8); LYMPHOCYTES % (AUTO) 6.3 % (22.0-44.0); MEAN CORPUSCULAR HEMOGLOBIN 29.7 pg (26.0-34.0); MEAN CORPUSCULAR HGB CONC 33.5 G/dL (31.0-37.0); MEAN CORPUSCULAR VOLUME 89 fL (80-100); MONOCYTES # (AUTO) 0.9 K/uL (0.1-1.0); MONOCYTES % (AUTO) 8.7 % (2.0-9.0); NEUTROPHILS # (AUTO) 8.1 K/uL (1.8-7.7); NEUTROPHILS % (AUTO) 81.2 % (40.0-70.0); PLATELET COUNT (AUTO) 287 K/uL (150-450); RED BLOOD CELL COUNT(AUTO) 3.14 MIL/uL (4.50-5.90); RED CELL DISTRIBUTION WIDTH 15.2 % (11.5-14.5)
[2021-04-04] MEDS ORDERED: SODIUM CHLORIDE 0.9% 250 ML IV ONE (05:12)
[2021-04-04 05:54] LABS: ALBUMIN 1.7 g/dL (3.4-5.0); BILIRUBIN,TOTAL 0.4 mg/dL (0.1-1.0); CALCIUM, TOTAL 8.4 mg/dL (8.8-10.5); CREATININE 4.12 mg/dL (0.60-1.30); POTASSIUM 3.2 mmol/L (3.5-5.1); TOTAL PROTEIN, SERUM 5.5 g/dL (6.4-8.2)
[2021-04-04] MEDS: CHOLECALCIFEROL (VIT D3) 2,000 UNITS [50 MCG] TABLET PO SCH (07:58)
[2021-04-04] MEDS: FAMOTIDINE 20 MG TABLET PO SCH (07:59)
[2021-04-04] MEDS: METOPROLOL SUCCINATE 25 MG ER TABLET PO SCH ×2 (07:59→20:26)
[2021-04-04] MEDS: QUEtiapine FUMARATE 25 MG TABLET PO SCH ×2 (08:00→20:25)
[2021-04-04] MEDS: DOCUSATE SODIUM 100 MG CAPSULE PO SCH ×2 (08:00→20:25)
[2021-04-04] MEDS: HydrALAZINE HCL 25 MG TABLET PO SCH ×4 (08:00→20:25)
[2021-04-04] MEDS: ETHYL ALCOHOL 62% ANTISEPTIC NASAL INHALANT 0.6 ML AMPUL NASAL SCH ×2 (08:01→20:25)
[2021-04-04] MEDS: DEXAMETHASONE SOD PHOS 4 MG/ML VIAL IVP SCH (08:02)
[2021-04-04] MEDS: AMINO ACIDS/PROTEIN HYDROLYS 30 ML TUBE GT SCH ×2 (08:04→12:16)
[2021-04-04] MEDS: CloNIDine 0.1 MG/24 HOUR PATCH TD SCH (08:08)
[2021-04-04] MEDS ORDERED: IOHEXOL 300 MG/ML 100 ML VIAL ONE (08:30)
[2021-04-04] MEDS ORDERED: SODIUM BICARBONATE 50 MEQ/50 ML VIAL ONE (08:30)
[2021-04-04] MEDS ORDERED: IOHEXOL 300 MG/ML 50 ML VIAL ONE (08:30)
[2021-04-04] MEDS ORDERED: LIDOCAINE/PF 1% 30 ML VIAL ONE (08:30)
[2021-04-04] MEDS ORDERED: HEPARIN SODIUM 1000 UNITS/NS 500 ML ONE (09:27)
[2021-04-04] MEDS ORDERED: HEPARIN SODIUM 1000 UNITS/NS 1,000 ML IARTER ONE (09:45)
[2021-04-04] MEDS ORDERED: SODIUM CHLORIDE 0.9% 500 ML IV ONE (09:45)
[2021-04-04] MEDS ORDERED: IOHEXOL 300 MG/ML 100 ML VIAL IARTER ONE (09:45)
[2021-04-04] MEDS ORDERED: IOHEXOL 300 MG/ML 50 ML VIAL IARTER ONE (09:45)
[2021-04-04] MEDS ORDERED: LIDOCAINE 1% 30 ML/SOD BICARB 8.4% 4 ML SQ ONE (09:45)
[2021-04-04] MEDS: PANTOPRAZOLE SODIUM 40 MG/VIAL IVP SCH ×3 (10:00→20:26)
[2021-04-04] MEDS: POTASSIUM CHL 10 MEQ/WATER 50 ML IV SCH ×4 (10:41→14:23)
[2021-04-04 11:32] LABS: ABG A-A DIFF O2 214.1 mmHg (10-20.0); ABG BASE EXCESS -8.1 mmol/L (-2.0-3.0); ABG CARBOXYHEMOGLOBIN 0.3 % (0.0-1.5); ABG HCO3 18.3 mmol/L (22.0-26.0); ABG METHEMOGLOBIN 0.3 % (0.0-1.5); ABG OXYGEN CONTENT 13.3 mL/dL (15.0-23.0); ABG OXYGEN SATURATION 92.7 % (95.0-98.0); ABG OXYHEMOGLOBIN 92.1 % (94.0-100.0); ABG PCO2 38 mmHg (35-45); ABG PH 7.304 (7.35-7.450); ABG TOTAL HEMOGLOBIN 10.2 G/dL (12.0-18.0); PO2, ARTERIAL BG 64.9 mmHg (84.0-92.0); SOURCE, BLOOD GAS ARTERIAL; TEMPERATURE, FAHRENHEIT, BG 97.1 FAHREN (96.0-98.6)
[2021-04-04 11:37] LABS: O2 DEVICE,BLOOD GAS VENTILATOR (ROOM AIR); PEEP,BG 5 cm H2O; SITE, BLOOD GAS ARTERIAL LINE; VT, ABG 470 ml
[2021-04-04 11:38] LABS: SPONTANEOUS VT, BG 480 ml
[2021-04-04] MEDS: BUMETANIDE 0.25 MG/ML 4 ML VIAL IVP SCH ×3 (11:53→20:25)
[2021-04-04] MEDS: DEXMEDETOMIDINE HCL 400 MCG in SODIUM CHLORIDE 0.9% 96 ML IV PRN ×2 (14:24→22:21)
[2021-04-04 18:27] LABS: CALCIUM, TOTAL 7.9 mg/dL (8.8-10.5); CREATININE 3.95 mg/dL (0.60-1.30); POTASSIUM 4.4 mmol/L (3.5-5.1)
[2021-04-04 19:58] LABS: GLUCOSE,POINT OF CARE 131 MG/DL (70-110)
[2021-04-05] VITALS: BP 152/53
[2021-04-05] MEDS: METOCLOPRAMIDE HCL 5 MG/ML 2 ML VIAL IVP SCH ×3 (00:10→15:40)
[2021-04-05 00:46] LABS: GLUCOSE,POINT OF CARE 112 MG/DL (70-110)
[2021-04-05] MEDS: DEXMEDETOMIDINE HCL 400 MCG in SODIUM CHLORIDE 0.9% 96 ML IV PRN ×3 (03:07→18:37)
[2021-04-05 04:00] VITALS: BP 156/56
[2021-04-05] MEDS: HydrALAZINE HCL 20 MG/ML VIAL IVP PRN ×3 (04:55→21:09)
[2021-04-05] MEDS: FentaNYL CIT 1000MCG/0.9% NACL 100 ML IV PRN ×3 (04:55→22:39)
[2021-04-05 05:16] LABS: CALCIUM, TOTAL 8.6 mg/dL (8.8-10.5); CREATININE 3.9 mg/dL (0.60-1.30); POTASSIUM 4.1 mmol/L (3.5-5.1)
[2021-04-05 08:00] VITALS: BP 162/57
[2021-04-05] MEDS: AMINO ACIDS/PROTEIN HYDROLYS 30 ML TUBE GT SCH ×2 (08:26→12:04)
[2021-04-05] MEDS: CHOLECALCIFEROL (VIT D3) 2,000 UNITS [50 MCG] TABLET PO SCH (08:28)
[2021-04-05] MEDS: PANTOPRAZOLE SODIUM 40 MG/VIAL IVP SCH ×2 (08:28→20:25)
[2021-04-05] MEDS: BUMETANIDE 0.25 MG/ML 4 ML VIAL IVP SCH ×2 (08:28→20:24)
[2021-04-05] MEDS: ETHYL ALCOHOL 62% ANTISEPTIC NASAL INHALANT 0.6 ML AMPUL NASAL SCH ×2 (08:28→20:24)
[2021-04-05] MEDS: HydrALAZINE HCL 25 MG TABLET PO SCH ×4 (08:29→20:25)
[2021-04-05] MEDS: DOCUSATE SODIUM 100 MG CAPSULE PO SCH ×2 (08:29→20:25)
[2021-04-05] MEDS: FAMOTIDINE 20 MG TABLET PO SCH (08:29)
[2021-04-05] MEDS: QUEtiapine FUMARATE 25 MG TABLET PO SCH ×2 (08:29→20:26)
[2021-04-05] MEDS: METOPROLOL SUCCINATE 25 MG ER TABLET PO SCH ×2 (08:29→20:25)
[2021-04-05] MEDS: CITRIC ACID/SODIUM CITRATE 30 ML SOLUTION UDCUP NG SCH ×2 (10:33→20:25)
[2021-04-05 12:00] VITALS: BP 190/67
[2021-04-05] MEDS: LORazepam 2 MG/ML VIAL IVP PRN ×2 (12:17→20:55)
[2021-04-05 12:33] LABS: GLUCOSE,POINT OF CARE 123 MG/DL (70-110)
[2021-04-05] MEDS: PROPOFOL 1000 MG/ISO-OSM 100 ML IV PRN ×3 (14:04→22:39)
[2021-04-05 16:00] VITALS: BP 116/45
[2021-04-05 20:00] VITALS: BP 236/74
[2021-04-05] MEDS: MIDAZOLAM HCL 100 MG in SODIUM CHLORIDE 0.9% 180 ML IV PRN (21:31)
[2021-04-06] VITALS: BP 157/50
[2021-04-06] MEDS: METOCLOPRAMIDE HCL 5 MG/ML 2 ML VIAL IVP SCH ×3 (00:18→15:41)
[2021-04-06 00:37] LABS: GLUCOSE,POINT OF CARE 109 MG/DL (70-110)
[2021-04-06 00:37] LABS: GLUCOSE,POINT OF CARE 103 MG/DL (70-110)
[2021-04-06] MEDS: PROPOFOL 1000 MG/ISO-OSM 100 ML IV PRN ×5 (02:09→22:07)
[2021-04-06] MEDS: DEXMEDETOMIDINE HCL 400 MCG in SODIUM CHLORIDE 0.9% 96 ML IV PRN (03:36)
[2021-04-06 04:00] VITALS: BP 136/44
[2021-04-06 05:20] LABS: CALCIUM, TOTAL 7.4 mg/dL (8.8-10.5); CREATININE 3.43 mg/dL (0.60-1.30); POTASSIUM 3.1 mmol/L (3.5-5.1)
[2021-04-06] MEDS ORDERED: POTASSIUM CHLORIDE 10% 40 MEQ/30 ML LIQUID UDCUP NG ONE (06:15)
[2021-04-06] MEDS: FentaNYL CIT 1000MCG/0.9% NACL 100 ML IV PRN ×2 (06:34→14:29)
[2021-04-06 07:45] LABS: MAGNESIUM 1.4 mg/dL (1.80-2.40)
[2021-04-06 08:00] VITALS: BP 145/39
[2021-04-06] MEDS: POTASSIUM CHL 10 MEQ/WATER 50 ML IV SCH ×4 (08:29→13:52)
[2021-04-06] MEDS: CITRIC ACID/SODIUM CITRATE 30 ML SOLUTION UDCUP NG SCH ×2 (08:29→20:30)
[2021-04-06] MEDS: BUMETANIDE 0.25 MG/ML 4 ML VIAL IVP SCH ×2 (08:30→20:34)
[2021-04-06] MEDS: METOPROLOL SUCCINATE 25 MG ER TABLET PO SCH ×2 (08:30→22:54)
[2021-04-06] MEDS: QUEtiapine FUMARATE 25 MG TABLET PO SCH ×2 (08:30→20:37)
[2021-04-06] MEDS: DOCUSATE SODIUM 100 MG CAPSULE PO SCH ×2 (08:30→20:29)
[2021-04-06] MEDS: PANTOPRAZOLE SODIUM 40 MG/VIAL IVP SCH ×2 (08:30→20:30)
[2021-04-06] MEDS: ETHYL ALCOHOL 62% ANTISEPTIC NASAL INHALANT 0.6 ML AMPUL NASAL SCH ×2 (08:31→20:36)
[2021-04-06] MEDS: AMINO ACIDS/PROTEIN HYDROLYS 30 ML TUBE GT SCH ×2 (08:31→12:18)
[2021-04-06] MEDS: CHOLECALCIFEROL (VIT D3) 2,000 UNITS [50 MCG] TABLET PO SCH (08:31)
[2021-04-06] MEDS: HydrALAZINE HCL 25 MG TABLET PO SCH ×4 (08:34→22:05)
[2021-04-06] MEDS ORDERED: MAGNESIUM SULFATE 2 GM/WATER 50 ML IV ONE (09:45)
[2021-04-06] MEDS: CISATRACURIUM BESYLATE 100 MG in DEXTROSE 5%-WATER 240 ML IV PRN (11:21)
[2021-04-06 11:40] LABS: GLUCOSE,POINT OF CARE 116 MG/DL (70-110)
[2021-04-06 12:00] VITALS: BP 157/54
[2021-04-06] MEDS ORDERED: SODIUM CHLORIDE 0.9% 250 ML IV ONE (12:17)
[2021-04-06] MEDS: MEROPENEM 1 GM in SODIUM CHLORIDE 0.9% 100 ML IV SCH (12:18)
[2021-04-06 12:31] LABS: GLUCOSE,POINT OF CARE 109 MG/DL (70-110)
[2021-04-06] MEDS: LORazepam 2 MG/ML VIAL IVP PRN (13:03)
[2021-04-06] MEDS: MIDAZOLAM HCL 100 MG in SODIUM CHLORIDE 0.9% 180 ML IV PRN (13:44)
[2021-04-06 16:00] VITALS: BP 118/48
[2021-04-06 16:09] LABS: POTASSIUM 4.5 mmol/L (3.5-5.1)
[2021-04-06 20:00] VITALS: BP 128/46
[2021-04-06 21:14] LABS: GLUCOSE,POINT OF CARE 114 MG/DL (70-110)
[2021-04-07] VITALS (7 sets, daily range): BP systolic 148–203; BP diastolic 49–72
[2021-04-07] MEDS: MEROPENEM 1 GM in SODIUM CHLORIDE 0.9% 100 ML IV SCH (00:01)
[2021-04-07] MEDS: CISATRACURIUM BESYLATE 100 MG in DEXTROSE 5%-WATER 240 ML IV PRN ×3 (00:01→13:27)
[2021-04-07] MEDS: METOCLOPRAMIDE HCL 5 MG/ML 2 ML VIAL IVP SCH ×2 (00:05→08:41)
[2021-04-07] MEDS ORDERED: SODIUM CHLORIDE 0.9% 500 ML IV ONE (00:06)
[2021-04-07] MEDS ORDERED: SODIUM CHLORIDE 0.9% 250 ML IV ONE (00:07)
[2021-04-07] MEDS: FentaNYL CIT 1000MCG/0.9% NACL 100 ML IV PRN ×5 (00:35→23:19)
[2021-04-07] MEDS: PROPOFOL 1000 MG/ISO-OSM 100 ML IV PRN ×4 (03:09→20:43)
[2021-04-07 04:49] LABS: GLUCOSE,POINT OF CARE 118 MG/DL (70-110)
[2021-04-07 06:29] LABS: BASOPHILS % (AUTO) 0.6 % (0.0-2.0); CALCIUM, TOTAL 8.2 mg/dL (8.8-10.5); CREATININE 3.46 mg/dL (0.60-1.30); EOSINOPHILS % (AUTO) 3.3 % (1.0-6.0); HEMATOCRIT 23.2 % (41-53); HEMOGLOBIN 7.6 g/dL (13.5-17.5); LYMPHOCYTES # (AUTO) 0.5 K/uL (1.0-4.8); LYMPHOCYTES % (AUTO) 3.8 % (22.0-44.0); MEAN CORPUSCULAR HEMOGLOBIN 29.6 pg (26.0-34.0); MEAN CORPUSCULAR HGB CONC 32.8 G/dL (31.0-37.0); MEAN CORPUSCULAR VOLUME 90 fL (80-100); MONOCYTES # (AUTO) 0.9 K/uL (0.1-1.0); MONOCYTES % (AUTO) 7.6 % (2.0-9.0); NEUTROPHILS # (AUTO) 10.5 K/uL (1.8-7.7); NEUTROPHILS % (AUTO) 84.7 % (40.0-70.0); PLATELET COUNT (AUTO) 386 K/uL (150-450); POTASSIUM 3.2 mmol/L (3.5-5.1); RED BLOOD CELL COUNT(AUTO) 2.57 MIL/uL (4.50-5.90); RED CELL DISTRIBUTION WIDTH 16.1 % (11.5-14.5)
[2021-04-07 06:37] LABS: GLUCOSE,POINT OF CARE 102 MG/DL (70-110)
[2021-04-07] MEDS: AMINO ACIDS/PROTEIN HYDROLYS 30 ML TUBE GT SCH ×2 (08:32→12:33)
[2021-04-07] MEDS: CITRIC ACID/SODIUM CITRATE 30 ML SOLUTION UDCUP NG SCH (08:34)
[2021-04-07] MEDS: CHOLECALCIFEROL (VIT D3) 2,000 UNITS [50 MCG] TABLET PO SCH (08:34)
[2021-04-07] MEDS: HydrALAZINE HCL 25 MG TABLET PO SCH ×4 (08:35→20:45)
[2021-04-07] MEDS: PANTOPRAZOLE SODIUM 40 MG/VIAL IVP SCH ×2 (08:41→20:10)
[2021-04-07] MEDS: BUMETANIDE 0.25 MG/ML 4 ML VIAL IVP SCH ×2 (08:41→20:10)
[2021-04-07] MEDS: METOPROLOL SUCCINATE 25 MG ER TABLET PO SCH ×2 (08:42→20:10)
[2021-04-07] MEDS: DOCUSATE SODIUM 100 MG CAPSULE PO SCH ×2 (08:42→20:11)
[2021-04-07] MEDS: ETHYL ALCOHOL 62% ANTISEPTIC NASAL INHALANT 0.6 ML AMPUL NASAL SCH ×2 (08:45→20:10)
[2021-04-07] MEDS: QUEtiapine FUMARATE 25 MG TABLET PO SCH ×2 (08:46→20:11)
[2021-04-07] MEDS: AmLODIPine BESYLATE 5 MG TABLET NG SCH (11:44)
[2021-04-07] MEDS: POTASSIUM CITRATE 5 MEQ ER TABLET PO SCH ×2 (11:44→20:10)
[2021-04-07] MEDS: POTASSIUM CHL 10 MEQ/WATER 50 ML IV SCH ×4 (11:44→14:22)
[2021-04-07] MEDS: CeFAZolin 1 GM/DEXTROSE 50 ML IV SCH ×2 (12:36→23:15)
[2021-04-07] MEDS: LINEZOLID 600 MG/ISO-OSM 300 ML IV SCH ×2 (14:26→23:15)
[2021-04-07] MEDS: MIDAZOLAM HCL 100 MG in SODIUM CHLORIDE 0.9% 180 ML IV PRN (15:28)
[2021-04-07 17:43] LABS: GLUCOSE,POINT OF CARE 123 MG/DL (70-110)
[2021-04-07 17:50] LABS: GLUCOSE,POINT OF CARE 134 MG/DL (70-110)
[2021-04-07] MEDS ORDERED: NITROGLYCERIN TD ONE (22:00)
[2021-04-08] VITALS (14 sets, daily range): BP systolic 122–198; BP diastolic 52–72
[2021-04-08] MEDS: CISATRACURIUM BESYLATE 100 MG in DEXTROSE 5%-WATER 240 ML IV PRN ×5 (00:59→19:27)
[2021-04-08] MEDS: PROPOFOL 1000 MG/ISO-OSM 100 ML IV PRN ×5 (01:31→18:48)
[2021-04-08] MEDS: HydrALAZINE HCL 20 MG/ML VIAL IVP PRN (01:51)
[2021-04-08] MEDS ORDERED: SODIUM CHLORIDE 0.9% 250 ML IV ONE (01:55)
[2021-04-08] MEDS: FentaNYL CIT 1000MCG/0.9% NACL 100 ML IV PRN ×3 (04:55→18:47)
[2021-04-08 05:32] LABS: CALCIUM, TOTAL 7.8 mg/dL (8.8-10.5); CREATININE 2.78 mg/dL (0.60-1.30); MAGNESIUM 1.5 mg/dL (1.80-2.40); POTASSIUM 3.5 mmol/L (3.5-5.1)
[2021-04-08] MEDS ORDERED: MAGNESIUM SULFATE 2 GM/WATER 50 ML IV ONE (08:30)
[2021-04-08] MEDS ORDERED: DEXTROSE 5%-WATER 500 ML IV ONE (08:30)
[2021-04-08] MEDS ORDERED: POTASSIUM CHLORIDE 10% 40 MEQ/30 ML LIQUID UDCUP NG ONE (08:45)
[2021-04-08] MEDS: CHOLECALCIFEROL (VIT D3) 2,000 UNITS [50 MCG] TABLET PO SCH (09:25)
[2021-04-08] MEDS: AmLODIPine BESYLATE 5 MG TABLET NG SCH (09:25)
[2021-04-08] MEDS: DOCUSATE SODIUM 100 MG CAPSULE PO SCH ×2 (09:26→21:20)
[2021-04-08] MEDS: METOPROLOL SUCCINATE 25 MG ER TABLET PO SCH ×2 (09:26→21:22)
[2021-04-08] MEDS: POTASSIUM CITRATE 5 MEQ ER TABLET PO SCH ×2 (09:26→21:22)
[2021-04-08] MEDS: HydrALAZINE HCL 25 MG TABLET PO SCH ×4 (09:26→21:22)
[2021-04-08] MEDS: ETHYL ALCOHOL 62% ANTISEPTIC NASAL INHALANT 0.6 ML AMPUL NASAL SCH ×2 (09:26→21:21)
[2021-04-08] MEDS: QUEtiapine FUMARATE 25 MG TABLET PO SCH ×2 (09:26→21:22)
[2021-04-08] MEDS: BUMETANIDE 0.25 MG/ML 4 ML VIAL IVP SCH ×2 (09:27→21:20)
[2021-04-08] MEDS: PANTOPRAZOLE SODIUM 40 MG/VIAL IVP SCH ×2 (09:27→21:20)
[2021-04-08] MEDS: MIDAZOLAM HCL 100 MG in SODIUM CHLORIDE 0.9% 180 ML IV PRN (09:31)
[2021-04-08] MEDS: AMINO ACIDS/PROTEIN HYDROLYS 30 ML TUBE GT SCH ×2 (09:35→12:12)
[2021-04-08] MEDS: CeFAZolin 1 GM/DEXTROSE 50 ML IV SCH ×3 (12:15→19:34)
[2021-04-08 12:32] LABS: GLUCOSE,POINT OF CARE 161 MG/DL (70-110)
[2021-04-08 12:32] LABS: GLUCOSE,POINT OF CARE 118 MG/DL (70-110)
[2021-04-08 12:32] LABS: GLUCOSE,POINT OF CARE 151 MG/DL (70-110)
[2021-04-08] MEDS: DIAZEPAM 5 MG TABLET PO PRN (17:10)
[2021-04-08 23:15] LABS: GLUCOSE,POINT OF CARE 117 MG/DL (70-110)
[2021-04-09] VITALS (24 sets, daily range): BP systolic 114–163; BP diastolic 54–82
[2021-04-09] MEDS: FentaNYL CIT 1000MCG/0.9% NACL 100 ML IV PRN ×4 (03:00→23:14)
[2021-04-09] MEDS: CISATRACURIUM BESYLATE 100 MG in DEXTROSE 5%-WATER 240 ML IV PRN ×3 (03:00→23:14)
[2021-04-09] MEDS: CeFAZolin 1 GM/DEXTROSE 50 ML IV SCH ×3 (04:04→20:20)
[2021-04-09 05:32] LABS: BASOPHILS % (AUTO) 0.7 % (0.0-2.0); EOSINOPHILS % (AUTO) 7.1 % (1.0-6.0); HEMATOCRIT 24.6 % (41-53); LYMPHOCYTES # (AUTO) 0.5 K/uL (1.0-4.8); LYMPHOCYTES % (AUTO) 4.4 % (22.0-44.0); MEAN CORPUSCULAR HEMOGLOBIN 29.4 pg (26.0-34.0); MEAN CORPUSCULAR HGB CONC 32.6 G/dL (31.0-37.0); MEAN CORPUSCULAR VOLUME 90 fL (80-100); MONOCYTES # (AUTO) 1.3 K/uL (0.1-1.0); MONOCYTES % (AUTO) 11.6 % (2.0-9.0); NEUTROPHILS # (AUTO) 8.5 K/uL (1.8-7.7); NEUTROPHILS % (AUTO) 76.2 % (40.0-70.0); PLATELET COUNT (AUTO) 431 K/uL (150-450); RED BLOOD CELL COUNT(AUTO) 2.73 MIL/uL (4.50-5.90); RED CELL DISTRIBUTION WIDTH 15.7 % (11.5-14.5)
[2021-04-09 05:49] LABS: ALBUMIN 1.2 g/dL (3.4-5.0); BILIRUBIN,TOTAL 0.4 mg/dL (0.1-1.0); CALCIUM, TOTAL 7.6 mg/dL (8.8-10.5); CREATININE 2.25 mg/dL (0.60-1.30); MAGNESIUM 1.5 mg/dL (1.80-2.40); POTASSIUM 3.1 mmol/L (3.5-5.1); TOTAL PROTEIN, SERUM 5.3 g/dL (6.4-8.2)
[2021-04-09] MEDS: ETHYL ALCOHOL 62% ANTISEPTIC NASAL INHALANT 0.6 ML AMPUL NASAL SCH ×2 (09:00→20:24)
[2021-04-09] MEDS: PROPOFOL 1000 MG/ISO-OSM 100 ML IV PRN ×4 (09:44→23:33)
[2021-04-09] MEDS: CHOLECALCIFEROL (VIT D3) 2,000 UNITS [50 MCG] TABLET PO SCH (09:45)
[2021-04-09] MEDS: AMINO ACIDS/PROTEIN HYDROLYS 30 ML TUBE GT SCH ×2 (09:45→12:49)
[2021-04-09] MEDS: BUMETANIDE 0.25 MG/ML 4 ML VIAL IVP SCH ×2 (09:45→20:22)
[2021-04-09] MEDS: PANTOPRAZOLE SODIUM 40 MG/VIAL IVP SCH ×2 (09:45→20:21)
[2021-04-09] MEDS: AmLODIPine BESYLATE 5 MG TABLET NG SCH (09:46)
[2021-04-09] MEDS: POTASSIUM CITRATE 5 MEQ ER TABLET PO SCH ×2 (09:46→20:20)
[2021-04-09] MEDS: QUEtiapine FUMARATE 25 MG TABLET PO SCH ×2 (09:46→20:24)
[2021-04-09] MEDS: METOPROLOL SUCCINATE 25 MG ER TABLET PO SCH ×2 (09:46→22:01)
[2021-04-09] MEDS: DOCUSATE SODIUM 100 MG CAPSULE PO SCH ×2 (09:47→20:24)
[2021-04-09] MEDS: HydrALAZINE HCL 25 MG TABLET PO SCH ×4 (09:47→22:01)
[2021-04-09] MEDS ORDERED: POTASSIUM CHLORIDE 20 MEQ ER TABLET PO ONE (11:15)
[2021-04-09 12:50] LABS: GLUCOSE,POINT OF CARE 109 MG/DL (70-110)
[2021-04-09 13:23] LABS: GLUCOSE,POINT OF CARE 110 MG/DL (70-110)
[2021-04-09] MEDS: HydrALAZINE HCL 20 MG/ML VIAL IVP PRN (17:03)
[2021-04-09] MEDS: INSULIN LISPRO 100 UNITS/ML SQ PRN (18:33)
[2021-04-09 18:55] LABS: GLUCOSE,POINT OF CARE 143 MG/DL (70-110)
[2021-04-09 23:22] LABS: GLUCOSE,POINT OF CARE 136 MG/DL (70-110)
[2021-04-10] VITALS (16 sets, daily range): BP systolic 103–171; BP diastolic 60–92
[2021-04-10 05:39] LABS: CALCIUM, TOTAL 7.8 mg/dL (8.8-10.5); CREATININE 2.06 mg/dL (0.60-1.30); MAGNESIUM 1.5 mg/dL (1.80-2.40); POTASSIUM 3.6 mmol/L (3.5-5.1)
[2021-04-10] MEDS: CeFAZolin 1 GM/DEXTROSE 50 ML IV SCH ×2 (05:58→12:20)
[2021-04-10] MEDS: CISATRACURIUM BESYLATE 100 MG in DEXTROSE 5%-WATER 240 ML IV PRN ×4 (06:03→23:01)
[2021-04-10] MEDS: NOREPINEPHRINE 4 MG/D5%-WATER 250 ML IV PRN (07:00)
[2021-04-10] MEDS: PROPOFOL 1000 MG/ISO-OSM 100 ML IV PRN ×5 (07:34→23:02)
[2021-04-10] MEDS: AMINO ACIDS/PROTEIN HYDROLYS 30 ML TUBE GT SCH ×2 (08:00→12:18)
[2021-04-10] MEDS: POTASSIUM CITRATE 5 MEQ ER TABLET PO SCH ×2 (08:29→20:46)
[2021-04-10] MEDS: PANTOPRAZOLE SODIUM 40 MG/VIAL IVP SCH ×2 (08:29→20:46)
[2021-04-10] MEDS: QUEtiapine FUMARATE 25 MG TABLET PO SCH ×2 (08:29→20:46)
[2021-04-10] MEDS: DOCUSATE SODIUM 100 MG CAPSULE PO SCH ×2 (08:29→20:46)
[2021-04-10] MEDS: BUMETANIDE 0.25 MG/ML 4 ML VIAL IVP SCH ×2 (08:30→20:46)
[2021-04-10] MEDS: CHOLECALCIFEROL (VIT D3) 2,000 UNITS [50 MCG] TABLET PO SCH (08:30)
[2021-04-10] MEDS: METOPROLOL SUCCINATE 25 MG ER TABLET PO SCH ×2 (09:00→20:46)
[2021-04-10] MEDS: AmLODIPine BESYLATE 5 MG TABLET NG SCH (09:00)
[2021-04-10] MEDS: HydrALAZINE HCL 25 MG TABLET PO SCH ×4 (09:00→21:34)
[2021-04-10] MEDS ORDERED: MINERAL OIL 133 ML ENEMA PR ONE (11:45)
[2021-04-10] MEDS: MIDAZOLAM HCL 100 MG in SODIUM CHLORIDE 0.9% 180 ML IV PRN (14:20)
[2021-04-10] MEDS: ETHYL ALCOHOL 62% ANTISEPTIC NASAL INHALANT 0.6 ML AMPUL NASAL SCH ×2 (14:36→21:34)
[2021-04-10] MEDS: FentaNYL CIT 1000MCG/0.9% NACL 100 ML IV PRN (16:54)
[2021-04-10 18:52] LABS: GLUCOSE,POINT OF CARE 123 MG/DL (70-110)
[2021-04-10 18:52] LABS: GLUCOSE,POINT OF CARE 128 MG/DL (70-110)
[2021-04-10] MEDS ORDERED: SODIUM CHLORIDE 0.9% 250 ML IV ONE (20:42)
[2021-04-10] MEDS: CeFAZolin 2 GM/DEXTROSE 50 ML IV SCH (20:45)
[2021-04-10] MEDS: HydrALAZINE HCL 20 MG/ML VIAL IVP PRN (23:53)
[2021-04-11 00:03] VITALS: BP 170/90
[2021-04-11] MEDS: FentaNYL CIT 1000MCG/0.9% NACL 100 ML IV PRN ×4 (00:52→19:45)
[2021-04-11] MEDS: PROPOFOL 1000 MG/ISO-OSM 100 ML IV PRN ×4 (02:11→20:28)
[2021-04-11 04:03] VITALS: BP 102/62
[2021-04-11 06:16] LABS: BASOPHILS % (AUTO) 1.1 % (0.0-2.0); EOSINOPHILS % (AUTO) 3.6 % (1.0-6.0); HEMOGLOBIN 7.7 g/dL (13.5-17.5); LYMPHOCYTES # (AUTO) 0.8 K/uL (1.0-4.8); LYMPHOCYTES % (AUTO) 4.3 % (22.0-44.0); MEAN CORPUSCULAR HEMOGLOBIN 30.3 pg (26.0-34.0); MEAN CORPUSCULAR HGB CONC 33.7 G/dL (31.0-37.0); MEAN CORPUSCULAR VOLUME 90 fL (80-100); MONOCYTES # (AUTO) 1.6 K/uL (0.1-1.0); MONOCYTES % (AUTO) 8.5 % (2.0-9.0); NEUTROPHILS # (AUTO) 15.8 K/uL (1.8-7.7); NEUTROPHILS % (AUTO) 82.5 % (40.0-70.0); PLATELET COUNT (AUTO) 581 K/uL (150-450); RED BLOOD CELL COUNT(AUTO) 2.56 MIL/uL (4.50-5.90); RED CELL DISTRIBUTION WIDTH 16.2 % (11.5-14.5)
[2021-04-11 06:50] LABS: ALBUMIN 1.1 g/dL (3.4-5.0); BILIRUBIN,TOTAL 0.5 mg/dL (0.1-1.0); CALCIUM, TOTAL 6.4 mg/dL (8.8-10.5); CREATININE 1.79 mg/dL (0.60-1.30); POTASSIUM 3.3 mmol/L (3.5-5.1); TOTAL PROTEIN, SERUM 5.2 g/dL (6.4-8.2)
[2021-04-11 08:00] VITALS: BP 119/70
[2021-04-11] MEDS: AMINO ACIDS/PROTEIN HYDROLYS 30 ML TUBE GT SCH ×2 (08:00→12:00)
[2021-04-11 08:11] LABS: APPEARANCE,URINE CLOUDY (CLEAR); BILIRUBIN,URINE NEGATIVE (NEGATIVE); GLUCOSE, URINE (UA) NEGATIVE (NEGATIVE); KETONES,URINE NEGATIVE (NEGATIVE); LEUKOCYTE ESTERASE ,URINE NEGATIVE (NEGATIVE); NITRATE,URINE NEGATIVE (NEGATIVE); OCCULT BLOOD,URINE TRACE (NEGATIVE); PROTEIN,URINE POS 1+ (NEGATIVE); UROBILINOGEN,URINE 0.2 mg/dL (<=1.0)
[2021-04-11] MEDS ORDERED: SODIUM CHLORIDE 0.9% 250 ML IV ONE ×2 (08:35→20:56)
[2021-04-11] MEDS: CeFAZolin 2 GM/DEXTROSE 50 ML IV SCH ×4 (08:44→23:57)
[2021-04-11] MEDS: BUMETANIDE 0.25 MG/ML 4 ML VIAL IVP SCH ×2 (08:44→20:59)
[2021-04-11] MEDS: DOCUSATE SODIUM 100 MG CAPSULE PO SCH ×2 (08:47→20:59)
[2021-04-11] MEDS: METOPROLOL SUCCINATE 25 MG ER TABLET PO SCH ×2 (08:47→21:47)
[2021-04-11] MEDS: QUEtiapine FUMARATE 25 MG TABLET PO SCH ×2 (08:47→20:59)
[2021-04-11] MEDS: PANTOPRAZOLE SODIUM 40 MG/VIAL IVP SCH ×2 (08:47→21:00)
[2021-04-11] MEDS: CloNIDine 0.1 MG/24 HOUR PATCH TD SCH (08:48)
[2021-04-11] MEDS: CHOLECALCIFEROL (VIT D3) 2,000 UNITS [50 MCG] TABLET PO SCH (08:48)
[2021-04-11] MEDS: POTASSIUM CITRATE 5 MEQ ER TABLET PO SCH ×2 (08:48→21:00)
[2021-04-11] MEDS: HydrALAZINE HCL 25 MG TABLET PO SCH ×4 (08:49→21:00)
[2021-04-11] MEDS: ETHYL ALCOHOL 62% ANTISEPTIC NASAL INHALANT 0.6 ML AMPUL NASAL SCH ×2 (08:49→21:00)
[2021-04-11] MEDS: AmLODIPine BESYLATE 5 MG TABLET NG SCH (08:49)
[2021-04-11 08:59] LABS: BACTERIA,URINE None Seen /HPF (None Seen); RBC,URINE 0-2 /HPF (0-2); SQUAMOUS EPITHELIAL CELL,UR Few /LPF (None Seen); URIC ACID CRYSTALS,URINE Few /LPF (None Seen); WBC,URINE None Seen /HPF (0-5)
[2021-04-11] MEDS ORDERED: BISACODYL 10 MG RECTAL RECTAL SUPPOSITORY PR PRN (11:15)
[2021-04-11] MEDS ORDERED: LACTULOSE 20 GM/30 ML SOLUTION UDCUP PO PRN (11:15)
[2021-04-11 12:00] VITALS: BP 121/83
[2021-04-11] MEDS: CISATRACURIUM BESYLATE 100 MG in DEXTROSE 5%-WATER 240 ML IV PRN ×2 (12:04→20:30)
[2021-04-11] MEDS: DIAZEPAM 5 MG TABLET PO SCH ×3 (12:53→21:00)
[2021-04-11] MEDS: OxyCODONE HCL 5 MG IR TABLET PO SCH ×3 (12:53→20:59)
[2021-04-11 13:41] LABS: ABG A-A DIFF O2 289.2 mmHg (10-20.0); ABG BASE EXCESS 2.5 mmol/L (-2.0-3.0); ABG CARBOXYHEMOGLOBIN 0.3 % (0.0-1.5); ABG HCO3 26.2 mmol/L (22.0-26.0); ABG METHEMOGLOBIN 0.3 % (0.0-1.5); ABG OXYGEN CONTENT 14.4 mL/dL (15.0-23.0); ABG OXYGEN SATURATION 96.7 % (95.0-98.0); ABG OXYHEMOGLOBIN 96.1 % (94.0-100.0); ABG PCO2 48 mmHg (35-45); ABG PH 7.379 (7.35-7.450); ABG TOTAL HEMOGLOBIN 10.6 G/dL (12.0-18.0); PO2, ARTERIAL BG 86.3 mmHg (84.0-92.0); SOURCE, BLOOD GAS ARTERIAL; TEMPERATURE, FAHRENHEIT, BG 98.3 FAHREN (96.0-98.6)
[2021-04-11 13:42] LABS: O2 DEVICE,BLOOD GAS VENTILATOR (ROOM AIR); PEEP,BG 5 cm H2O; SITE, BLOOD GAS RT RADIAL; SPONTANEOUS VT, BG 432 ml; VT, ABG 470 ml
[2021-04-11 16:00] VITALS: BP 127/87
[2021-04-11] MEDS: METOCLOPRAMIDE HCL 5 MG/ML 2 ML VIAL IVP SCH ×2 (16:08→21:48)
[2021-04-11 20:04] VITALS: BP 133/76
[2021-04-11] MEDS: INSULIN LISPRO 100 UNITS/ML SQ PRN (23:56)
[2021-04-12 00:04] VITALS: BP 112/76
[2021-04-12] MEDS: PROPOFOL 1000 MG/ISO-OSM 100 ML IV PRN ×5 (00:58→20:46)
[2021-04-12] MEDS: LORazepam 2 MG/ML VIAL IVP PRN (03:51)
[2021-04-12 04:06] VITALS: BP 97/57
[2021-04-12] MEDS: FentaNYL CIT 1000MCG/0.9% NACL 100 ML IV PRN ×3 (05:42→20:46)
[2021-04-12 06:04] LABS: BASOPHILS % (AUTO) 0.6 % (0.0-2.0); EOSINOPHILS % (AUTO) 2.8 % (1.0-6.0); HEMATOCRIT 27.9 % (41-53); HEMOGLOBIN 9.1 g/dL (13.5-17.5); LYMPHOCYTES # (AUTO) 0.7 K/uL (1.0-4.8); MEAN CORPUSCULAR HEMOGLOBIN 28.9 pg (26.0-34.0); MEAN CORPUSCULAR HGB CONC 32.5 G/dL (31.0-37.0); MEAN CORPUSCULAR VOLUME 89 fL (80-100); MONOCYTES # (AUTO) 1.4 K/uL (0.1-1.0); MONOCYTES % (AUTO) 8.5 % (2.0-9.0); NEUTROPHILS # (AUTO) 13.7 K/uL (1.8-7.7); NEUTROPHILS % (AUTO) 84.1 % (40.0-70.0); PLATELET COUNT (AUTO) 567 K/uL (150-450); RED BLOOD CELL COUNT(AUTO) 3.14 MIL/uL (4.50-5.90); RED CELL DISTRIBUTION WIDTH 15.6 % (11.5-14.5)
[2021-04-12 07:01] LABS: CALCIUM, TOTAL 8.4 mg/dL (8.8-10.5); CREATININE 1.83 mg/dL (0.60-1.30); POTASSIUM 3.9 mmol/L (3.5-5.1)
[2021-04-12 08:00] VITALS: BP 125/82
[2021-04-12] MEDS: AMINO ACIDS/PROTEIN HYDROLYS 30 ML TUBE GT SCH ×2 (09:00→11:26)
[2021-04-12] MEDS: AmLODIPine BESYLATE 5 MG TABLET NG SCH (09:00)
[2021-04-12] MEDS: HydrALAZINE HCL 25 MG TABLET PO SCH ×4 (09:00→21:00)
[2021-04-12] MEDS: DIAZEPAM 5 MG TABLET PO SCH ×3 (09:01→20:53)
[2021-04-12] MEDS: DOCUSATE SODIUM 100 MG CAPSULE PO SCH ×2 (09:01→20:48)
[2021-04-12] MEDS: POTASSIUM CITRATE 5 MEQ ER TABLET PO SCH ×2 (09:02→20:47)
[2021-04-12] MEDS: ETHYL ALCOHOL 62% ANTISEPTIC NASAL INHALANT 0.6 ML AMPUL NASAL SCH ×2 (09:02→20:44)
[2021-04-12] MEDS: OxyCODONE HCL 5 MG IR TABLET PO SCH ×3 (09:02→20:48)
[2021-04-12] MEDS: METOCLOPRAMIDE HCL 5 MG/ML 2 ML VIAL IVP SCH (09:02)
[2021-04-12] MEDS: QUEtiapine FUMARATE 25 MG TABLET PO SCH ×2 (09:03→20:47)
[2021-04-12] MEDS: CHOLECALCIFEROL (VIT D3) 2,000 UNITS [50 MCG] TABLET PO SCH (09:03)
[2021-04-12] MEDS: CeFAZolin 2 GM/DEXTROSE 50 ML IV SCH ×2 (09:04→16:25)
[2021-04-12] MEDS: PANTOPRAZOLE SODIUM 40 MG/VIAL IVP SCH ×2 (09:04→20:47)
[2021-04-12] MEDS: BUMETANIDE 0.25 MG/ML 4 ML VIAL IVP SCH ×2 (09:04→20:47)
[2021-04-12] MEDS: METOPROLOL SUCCINATE 25 MG ER TABLET PO SCH ×2 (09:06→20:47)
[2021-04-12 12:00] VITALS: BP 91/56
[2021-04-12 12:43] LABS: ABG A-A DIFF O2 425.1 mmHg (10-20.0); ABG BASE EXCESS -1.3 mmol/L (-2.0-3.0); ABG CARBOXYHEMOGLOBIN 0.3 % (0.0-1.5); ABG HCO3 22.9 mmol/L (22.0-26.0); ABG METHEMOGLOBIN 0.3 % (0.0-1.5); ABG OXYGEN CONTENT 13.5 mL/dL (15.0-23.0); ABG OXYGEN SATURATION 95.4 % (95.0-98.0); ABG OXYHEMOGLOBIN 94.8 % (94.0-100.0); ABG PCO2 58 mmHg (35-45); ABG PH 7.265 (7.35-7.450); PO2, ARTERIAL BG 85.3 mmHg (84.0-92.0); SOURCE, BLOOD GAS ARTERIAL
[2021-04-12 12:44] LABS: O2 DEVICE,BLOOD GAS VENTILATOR (ROOM AIR); SITE, BLOOD GAS LFT RADIAL
[2021-04-12 12:45] LABS: INSPIRATORY TIME, BG 1.2 SEC; PEEP,BG 10 cm H2O; VENT MODE, BG PCV/AC (ROOM AIR); VT, ABG 438 ml
[2021-04-12 16:00] VITALS: BP 102/67
[2021-04-12 17:06] LABS: ABG BASE EXCESS 1.6 mmol/L (-2.0-3.0); ABG CARBOXYHEMOGLOBIN 0.2 % (0.0-1.5); ABG HCO3 25.4 mmol/L (22.0-26.0); ABG METHEMOGLOBIN 0.3 % (0.0-1.5); ABG OXYGEN CONTENT 13.3 mL/dL (15.0-23.0); ABG OXYGEN SATURATION 98.6 % (95.0-98.0); ABG OXYHEMOGLOBIN 98.1 % (94.0-100.0); ABG PCO2 55 mmHg (35-45); ABG PH 7.323 (7.35-7.450); ABG TOTAL HEMOGLOBIN 9.5 G/dL (12.0-18.0); O2 DEVICE,BLOOD GAS VENTILATOR (ROOM AIR); PO2, ARTERIAL BG 124.2 mmHg (84.0-92.0); SITE, BLOOD GAS LFT RADIAL; SOURCE, BLOOD GAS ARTERIAL; TEMPERATURE, FAHRENHEIT, BG 98.6 FAHREN (96.0-98.6); VENT MODE, BG Press. Control Vent (ROOM AIR)
[2021-04-12 17:07] LABS: INSPIRATORY TIME, BG 1.2 SEC; PEEP,BG 10 cm H2O; SPONTANEOUS VT, BG 500 ml
[2021-04-12 20:01] VITALS: BP 103/63
[2021-04-12] MEDS ORDERED: SODIUM CHLORIDE 0.9% 250 ML IV ONE (20:42)
[2021-04-12] MEDS: CISATRACURIUM BESYLATE 100 MG in DEXTROSE 5%-WATER 240 ML IV PRN (20:45)
[2021-04-13] VITALS (12 sets, daily range): BP systolic 89–121; BP diastolic 54–72
[2021-04-13] MEDS: CeFAZolin 2 GM/DEXTROSE 50 ML IV SCH ×3 (00:05→17:26)
[2021-04-13] MEDS: LORazepam 2 MG/ML VIAL IVP PRN (00:06)
[2021-04-13] MEDS: DIAZEPAM 5 MG TABLET PO PRN (01:10)
[2021-04-13] MEDS: HYDROmorphone 2 MG/ML VIAL IVP PRN (01:11)
[2021-04-13] MEDS: ACETAMINOPHEN 325 MG TABLET PO PRN (03:03)
[2021-04-13] MEDS: FentaNYL CIT 1000MCG/0.9% NACL 100 ML IV PRN ×3 (04:00→17:48)
[2021-04-13 05:17] LABS: BASOPHILS % (AUTO) 1.1 % (0.0-2.0); EOSINOPHILS % (AUTO) 1.7 % (1.0-6.0); HEMATOCRIT 26.1 % (41-53); HEMOGLOBIN 8.3 g/dL (13.5-17.5); LYMPHOCYTES # (AUTO) 0.7 K/uL (1.0-4.8); LYMPHOCYTES % (AUTO) 3.5 % (22.0-44.0); MEAN CORPUSCULAR HEMOGLOBIN 28.6 pg (26.0-34.0); MEAN CORPUSCULAR VOLUME 89 fL (80-100); MONOCYTES # (AUTO) 1.4 K/uL (0.1-1.0); MONOCYTES % (AUTO) 6.9 % (2.0-9.0); NEUTROPHILS # (AUTO) 17.4 K/uL (1.8-7.7); PLATELET COUNT (AUTO) 596 K/uL (150-450); RED BLOOD CELL COUNT(AUTO) 2.92 MIL/uL (4.50-5.90); RED CELL DISTRIBUTION WIDTH 15.4 % (11.5-14.5)
[2021-04-13] MEDS: PROPOFOL 1000 MG/ISO-OSM 100 ML IV PRN ×3 (05:23→17:47)
[2021-04-13 05:25] LABS: CALCIUM, TOTAL 8.9 mg/dL (8.8-10.5); CREATININE 2.24 mg/dL (0.60-1.30); POTASSIUM 4.7 mmol/L (3.5-5.1)
[2021-04-13 05:33] LABS: NEUTROPHILS % (AUTO) 86.8 % (40.0-70.0)
[2021-04-13] MEDS: PANTOPRAZOLE SODIUM 40 MG/VIAL IVP SCH ×2 (08:40→20:38)
[2021-04-13] MEDS: ETHYL ALCOHOL 62% ANTISEPTIC NASAL INHALANT 0.6 ML AMPUL NASAL SCH ×2 (08:40→20:37)
[2021-04-13] MEDS: BUMETANIDE 0.25 MG/ML 4 ML VIAL IVP SCH ×2 (08:40→20:38)
[2021-04-13] MEDS: DOCUSATE SODIUM 100 MG CAPSULE PO SCH ×2 (08:40→22:15)
[2021-04-13] MEDS: DIAZEPAM 5 MG TABLET PO SCH ×3 (08:41→20:37)
[2021-04-13] MEDS: AMINO ACIDS/PROTEIN HYDROLYS 30 ML TUBE GT SCH ×2 (08:43→12:05)
[2021-04-13] MEDS: AmLODIPine BESYLATE 5 MG TABLET NG SCH (08:44)
[2021-04-13] MEDS: OxyCODONE HCL 5 MG IR TABLET PO SCH ×3 (08:44→20:38)
[2021-04-13] MEDS: HydrALAZINE HCL 25 MG TABLET PO SCH ×4 (08:44→21:00)
[2021-04-13] MEDS: METOPROLOL SUCCINATE 25 MG ER TABLET PO SCH ×3 (08:45→22:14)
[2021-04-13] MEDS: CHOLECALCIFEROL (VIT D3) 2,000 UNITS [50 MCG] TABLET PO SCH (10:18)
[2021-04-13] MEDS: QUEtiapine FUMARATE 25 MG TABLET PO SCH ×2 (10:19→20:38)
[2021-04-13] MEDS: POTASSIUM CITRATE 5 MEQ ER TABLET PO SCH ×2 (10:19→20:41)
[2021-04-13] MEDS: MetroNIDAZOLE 500 MG/NACL 100 ML IV SCH ×2 (17:25→23:04)
[2021-04-13] MEDS: CISATRACURIUM BESYLATE 100 MG in DEXTROSE 5%-WATER 240 ML IV PRN (20:08)
[2021-04-14] VITALS (21 sets, daily range): BP systolic 60–125; BP diastolic 34–72
[2021-04-14] MEDS: PROPOFOL 1000 MG/ISO-OSM 100 ML IV PRN ×5 (00:32→17:28)
[2021-04-14] MEDS: FentaNYL CIT 1000MCG/0.9% NACL 100 ML IV PRN ×3 (00:33→20:21)
[2021-04-14] MEDS: CeFAZolin 2 GM/DEXTROSE 50 ML IV SCH ×3 (00:34→17:22)
[2021-04-14 05:40] LABS: BASOPHILS % (AUTO) 1.1 % (0.0-2.0); EOSINOPHILS % (AUTO) 2.4 % (1.0-6.0); HEMATOCRIT 23.3 % (41-53); HEMOGLOBIN 7.5 g/dL (13.5-17.5); LYMPHOCYTES # (AUTO) 0.6 K/uL (1.0-4.8); LYMPHOCYTES % (AUTO) 3.6 % (22.0-44.0); MEAN CORPUSCULAR HEMOGLOBIN 28.5 pg (26.0-34.0); MEAN CORPUSCULAR VOLUME 89 fL (80-100); MONOCYTES # (AUTO) 1.1 K/uL (0.1-1.0); MONOCYTES % (AUTO) 6.4 % (2.0-9.0); NEUTROPHILS # (AUTO) 14.7 K/uL (1.8-7.7); PLATELET COUNT (AUTO) 551 K/uL (150-450); RED BLOOD CELL COUNT(AUTO) 2.62 MIL/uL (4.50-5.90); RED CELL DISTRIBUTION WIDTH 15.4 % (11.5-14.5)
[2021-04-14 05:42] LABS: CALCIUM, TOTAL 8.1 mg/dL (8.8-10.5); CREATININE 2.55 mg/dL (0.60-1.30); POTASSIUM 4.1 mmol/L (3.5-5.1)
[2021-04-14 05:44] LABS: NEUTROPHILS % (AUTO) 86.5 % (40.0-70.0)
[2021-04-14 06:11] LABS: PLATELET MORPHOLOGY COMMENT GIANT PLTS PRESENT
[2021-04-14] MEDS: CISATRACURIUM BESYLATE 100 MG in DEXTROSE 5%-WATER 240 ML IV PRN ×3 (07:14→18:38)
[2021-04-14] MEDS: AMINO ACIDS/PROTEIN HYDROLYS 30 ML TUBE GT SCH ×2 (08:52→13:23)
[2021-04-14] MEDS: MetroNIDAZOLE 500 MG/NACL 100 ML IV SCH ×2 (08:53→17:20)
[2021-04-14] MEDS: DOCUSATE SODIUM 100 MG CAPSULE PO SCH ×2 (08:54→21:00)
[2021-04-14] MEDS: POTASSIUM CITRATE 5 MEQ ER TABLET PO SCH ×2 (08:54→20:20)
[2021-04-14] MEDS: QUEtiapine FUMARATE 25 MG TABLET PO SCH ×2 (08:54→20:20)
[2021-04-14] MEDS: DIAZEPAM 5 MG TABLET PO SCH ×3 (08:55→20:20)
[2021-04-14] MEDS: CHOLECALCIFEROL (VIT D3) 2,000 UNITS [50 MCG] TABLET PO SCH (08:55)
[2021-04-14] MEDS: BUMETANIDE 0.25 MG/ML 4 ML VIAL IVP SCH ×2 (08:55→20:20)
[2021-04-14] MEDS: METOPROLOL SUCCINATE 25 MG ER TABLET PO SCH ×2 (08:56→22:02)
[2021-04-14] MEDS: ETHYL ALCOHOL 62% ANTISEPTIC NASAL INHALANT 0.6 ML AMPUL NASAL SCH ×2 (08:56→20:20)
[2021-04-14] MEDS: PANTOPRAZOLE SODIUM 40 MG/VIAL IVP SCH ×2 (08:56→20:20)
[2021-04-14] MEDS: OxyCODONE HCL 5 MG IR TABLET PO SCH ×3 (09:00→20:20)
[2021-04-14] MEDS: HydrALAZINE HCL 25 MG TABLET PO SCH ×4 (09:00→21:00)
[2021-04-14] MEDS: AmLODIPine BESYLATE 5 MG TABLET NG SCH (09:00)
[2021-04-14 12:24] LABS: ABG A-A DIFF O2 209.5 mmHg (10-20.0); ABG BASE EXCESS -2.7 mmol/L (-2.0-3.0); ABG CARBOXYHEMOGLOBIN 0.3 % (0.0-1.5); ABG HCO3 22.3 mmol/L (22.0-26.0); ABG METHEMOGLOBIN 0.6 % (0.0-1.5); ABG OXYGEN CONTENT 10.7 mL/dL (15.0-23.0); ABG OXYGEN SATURATION 95.7 % (95.0-98.0); ABG OXYHEMOGLOBIN 94.8 % (94.0-100.0); ABG PCO2 45 mmHg (35-45); ABG PH 7.335 (7.35-7.450); ABG TOTAL HEMOGLOBIN 7.9 G/dL (12.0-18.0); O2 DEVICE,BLOOD GAS VENTILATOR (ROOM AIR); PO2, ARTERIAL BG 96.3 mmHg (84.0-92.0); SITE, BLOOD GAS RT RADIAL; SOURCE, BLOOD GAS ARTERIAL; TEMPERATURE, FAHRENHEIT, BG 99.5 FAHREN (96.0-98.6); VENT MODE, BG Press. Control Vent (ROOM AIR)
[2021-04-14 12:25] LABS: PEEP,BG 8 cm H2O
[2021-04-15] VITALS (11 sets, daily range): BP systolic 87–137; BP diastolic 41–87
[2021-04-15] MEDS: MetroNIDAZOLE 500 MG/NACL 100 ML IV SCH ×4 (00:25→23:58)
[2021-04-15] MEDS: PROPOFOL 1000 MG/ISO-OSM 100 ML IV PRN ×4 (00:26→18:13)
[2021-04-15] MEDS: NOREPINEPHRINE 4 MG/D5%-WATER 250 ML IV PRN ×2 (00:28→12:05)
[2021-04-15] MEDS: INSULIN LISPRO 100 UNITS/ML SQ PRN (00:29)
[2021-04-15] MEDS: CeFAZolin 2 GM/DEXTROSE 50 ML IV SCH ×4 (01:00→23:59)
[2021-04-15] MEDS: FentaNYL CIT 1000MCG/0.9% NACL 100 ML IV PRN ×4 (04:34→23:59)
[2021-04-15 06:09] LABS: BASOPHILS % (AUTO) 0.8 % (0.0-2.0); EOSINOPHILS % (AUTO) 0.6 % (1.0-6.0); HEMATOCRIT 22.9 % (41-53); HEMOGLOBIN 7.3 g/dL (13.5-17.5); LYMPHOCYTES # (AUTO) 0.6 K/uL (1.0-4.8); LYMPHOCYTES % (AUTO) 3.4 % (22.0-44.0); MEAN CORPUSCULAR HEMOGLOBIN 28.7 pg (26.0-34.0); MEAN CORPUSCULAR VOLUME 90 fL (80-100); MONOCYTES # (AUTO) 1.3 K/uL (0.1-1.0); MONOCYTES % (AUTO) 6.9 % (2.0-9.0); NEUTROPHILS # (AUTO) 16.1 K/uL (1.8-7.7); PLATELET COUNT (AUTO) 629 K/uL (150-450); RED BLOOD CELL COUNT(AUTO) 2.56 MIL/uL (4.50-5.90); RED CELL DISTRIBUTION WIDTH 15.6 % (11.5-14.5)
[2021-04-15 06:49] LABS: NEUTROPHILS % (AUTO) 88.3 % (40.0-70.0)
[2021-04-15 06:51] LABS: PLATELET MORPHOLOGY COMMENT GIANT PLTS PRESENT
[2021-04-15] MEDS ORDERED: SODIUM CHLORIDE 0.9% 250 ML IV ONE (06:51)
[2021-04-15 06:58] LABS: ALBUMIN 1.1 g/dL (3.4-5.0); BILIRUBIN,TOTAL 0.3 mg/dL (0.1-1.0); CREATININE 2.74 mg/dL (0.60-1.30); POTASSIUM 4.3 mmol/L (3.5-5.1); TOTAL PROTEIN, SERUM 5.9 g/dL (6.4-8.2)
[2021-04-15] MEDS: OxyCODONE HCL 5 MG IR TABLET PO SCH ×3 (09:00→20:15)
[2021-04-15] MEDS: HydrALAZINE HCL 25 MG TABLET PO SCH ×4 (09:00→20:12)
[2021-04-15] MEDS: AMINO ACIDS/PROTEIN HYDROLYS 30 ML TUBE GT SCH ×2 (09:14→12:05)
[2021-04-15] MEDS: DIAZEPAM 5 MG TABLET PO SCH ×3 (09:15→20:10)
[2021-04-15] MEDS: PANTOPRAZOLE SODIUM 40 MG/VIAL IVP SCH ×2 (09:15→20:10)
[2021-04-15] MEDS: ETHYL ALCOHOL 62% ANTISEPTIC NASAL INHALANT 0.6 ML AMPUL NASAL SCH ×2 (09:15→20:10)
[2021-04-15] MEDS: BUMETANIDE 0.25 MG/ML 4 ML VIAL IVP SCH ×2 (09:15→20:10)
[2021-04-15] MEDS: QUEtiapine FUMARATE 25 MG TABLET PO SCH ×2 (09:15→20:10)
[2021-04-15] MEDS: DOCUSATE SODIUM 100 MG CAPSULE PO SCH ×2 (09:15→20:10)
[2021-04-15] MEDS: AmLODIPine BESYLATE 5 MG TABLET NG SCH (09:15)
[2021-04-15] MEDS: CHOLECALCIFEROL (VIT D3) 2,000 UNITS [50 MCG] TABLET PO SCH (09:16)
[2021-04-15] MEDS: METOPROLOL SUCCINATE 25 MG ER TABLET PO SCH ×2 (09:16→20:11)
[2021-04-15] MEDS: POTASSIUM CITRATE 5 MEQ ER TABLET PO SCH ×2 (09:16→20:17)
[2021-04-15] MEDS: CISATRACURIUM BESYLATE 100 MG in DEXTROSE 5%-WATER 240 ML IV PRN ×3 (10:07→20:09)
[2021-04-15] MEDS: ALBUMIN HUMAN 25%-25GM/100ML 100 ML IV SCH ×2 (12:18→20:09)
[2021-04-16] VITALS (13 sets, daily range): BP systolic 108–142; BP diastolic 59–83
[2021-04-16] MEDS: CISATRACURIUM BESYLATE 100 MG in DEXTROSE 5%-WATER 240 ML IV PRN ×4 (01:38→23:18)
[2021-04-16] MEDS: ALBUMIN HUMAN 25%-25GM/100ML 100 ML IV SCH ×2 (04:13→12:53)
[2021-04-16 05:29] LABS: ALBUMIN 1.5 g/dL (3.4-5.0); BILIRUBIN,TOTAL 0.3 mg/dL (0.1-1.0); CALCIUM, TOTAL 8.1 mg/dL (8.8-10.5); CREATININE 2.46 mg/dL (0.60-1.30); POTASSIUM 3.9 mmol/L (3.5-5.1); TOTAL PROTEIN, SERUM 5.7 g/dL (6.4-8.2)
[2021-04-16] MEDS: PROPOFOL 1000 MG/ISO-OSM 100 ML IV PRN ×3 (06:26→17:27)
[2021-04-16] MEDS ORDERED: SODIUM CHLORIDE 0.9% 250 ML IV ONE (08:11)
[2021-04-16] MEDS: MetroNIDAZOLE 500 MG/NACL 100 ML IV SCH ×2 (08:20→15:35)
[2021-04-16] MEDS: NOREPINEPHRINE 4 MG/D5%-WATER 250 ML IV PRN (08:27)
[2021-04-16] MEDS: FentaNYL CIT 1000MCG/0.9% NACL 100 ML IV PRN ×3 (08:28→17:28)
[2021-04-16] MEDS: AMINO ACIDS/PROTEIN HYDROLYS 30 ML TUBE GT SCH ×2 (08:47→12:53)
[2021-04-16] MEDS: CeFAZolin 2 GM/DEXTROSE 50 ML IV SCH ×2 (08:48→17:28)
[2021-04-16] MEDS: CHOLECALCIFEROL (VIT D3) 2,000 UNITS [50 MCG] TABLET PO SCH (08:49)
[2021-04-16] MEDS: DIAZEPAM 5 MG TABLET PO SCH ×3 (08:49→20:38)
[2021-04-16] MEDS: OxyCODONE HCL 5 MG IR TABLET PO SCH ×3 (08:49→20:38)
[2021-04-16] MEDS: ETHYL ALCOHOL 62% ANTISEPTIC NASAL INHALANT 0.6 ML AMPUL NASAL SCH ×2 (08:50→20:39)
[2021-04-16] MEDS: QUEtiapine FUMARATE 25 MG TABLET PO SCH ×2 (08:50→20:38)
[2021-04-16] MEDS: DOCUSATE SODIUM 100 MG CAPSULE PO SCH ×2 (08:50→20:38)
[2021-04-16] MEDS: BUMETANIDE 0.25 MG/ML 4 ML VIAL IVP SCH ×2 (08:50→20:37)
[2021-04-16] MEDS: PANTOPRAZOLE SODIUM 40 MG/VIAL IVP SCH ×2 (08:50→20:40)
[2021-04-16] MEDS: POTASSIUM CITRATE 5 MEQ ER TABLET PO SCH ×3 (08:51→21:00)
[2021-04-16] MEDS: HydrALAZINE HCL 25 MG TABLET PO SCH (08:52)
[2021-04-16] MEDS: METOPROLOL SUCCINATE 25 MG ER TABLET PO SCH (08:52)
[2021-04-16 09:29] LABS: MEAN CORPUSCULAR HEMOGLOBIN 29.1 pg (26.0-34.0); MEAN CORPUSCULAR HGB CONC 32.5 G/dL (31.0-37.0); MEAN CORPUSCULAR VOLUME 89 fL (80-100); PLATELET COUNT (AUTO) 620 K/uL (150-450); RED CELL DISTRIBUTION WIDTH 15.7 % (11.5-14.5)
[2021-04-16 09:34] LABS: HEMOGLOBIN 6.7 g/dL (13.5-17.5)
[2021-04-16 09:35] LABS: HEMATOCRIT 20.5 % (41-53)
[2021-04-16 10:41] LABS: BAND NEUTROPHILS % (MANUAL) 1 % (0-5); EOSINOPHILS % (MANUAL) 3 % (1-6); LYMPHOCYTES % (MANUAL) 5 % (22-44); MONOCYTES % (MANUAL) 9 % (2-9); MYELOCYTES % 3 % (0-0); SEGMENTED NEUTROPHILS % 79 % (40-70)
[2021-04-16 13:50] LABS: EOSINOPHILS % (AUTO) 3.3 % (1.0-6.0); HEMATOCRIT 21.4 % (41-53); LYMPHOCYTES # (AUTO) 0.6 K/uL (1.0-4.8); LYMPHOCYTES % (AUTO) 4.5 % (22.0-44.0); MEAN CORPUSCULAR HEMOGLOBIN 28.7 pg (26.0-34.0); MEAN CORPUSCULAR HGB CONC 32.3 G/dL (31.0-37.0); MEAN CORPUSCULAR VOLUME 89 fL (80-100); MONOCYTES # (AUTO) 1.2 K/uL (0.1-1.0); MONOCYTES % (AUTO) 8.7 % (2.0-9.0); NEUTROPHILS # (AUTO) 11.3 K/uL (1.8-7.7); NEUTROPHILS % (AUTO) 82.5 % (40.0-70.0); PLATELET COUNT (AUTO) 638 K/uL (150-450); RED CELL DISTRIBUTION WIDTH 15.8 % (11.5-14.5)
[2021-04-16 13:56] LABS: HEMOGLOBIN 6.9 g/dL (13.5-17.5)
[2021-04-16 14:37] LABS: APPEARANCE,URINE CLOUDY (CLEAR); BILIRUBIN,URINE NEGATIVE (NEGATIVE); GLUCOSE, URINE (UA) NEGATIVE (NEGATIVE); KETONES,URINE NEGATIVE (NEGATIVE); LEUKOCYTE ESTERASE ,URINE NEGATIVE (NEGATIVE); NITRATE,URINE NEGATIVE (NEGATIVE); OCCULT BLOOD,URINE NEGATIVE (NEGATIVE); PH,URINE 5.5 (5.0-8.0); PROTEIN,URINE POS 1+ (NEGATIVE); UROBILINOGEN,URINE 0.2 mg/dL (<=1.0)
[2021-04-16 14:46] LABS: BACTERIA,URINE Few /HPF (None Seen); RBC,URINE None Seen /HPF (0-2); SQUAMOUS EPITHELIAL CELL,UR Few /LPF (None Seen); WBC,URINE 0-2 /HPF (0-5)
[2021-04-16] MEDS: METOCLOPRAMIDE HCL 5 MG/ML 2 ML VIAL IVP SCH ×2 (15:35→20:37)
[2021-04-16] MEDS ORDERED: SODIUM CHLORIDE 0.9% 500 ML IV ONE (16:36)
[2021-04-16 20:01] LABS: HEMATOCRIT 23.8 % (41-53); HEMOGLOBIN 7.8 g/dL (13.5-17.5)
[2021-04-17] VITALS: BP 114/60
[2021-04-17] MEDS: FentaNYL CIT 1000MCG/0.9% NACL 100 ML IV PRN ×4 (00:38→18:05)
[2021-04-17] MEDS: PROPOFOL 1000 MG/ISO-OSM 100 ML IV PRN ×5 (00:39→22:43)
[2021-04-17] MEDS: MetroNIDAZOLE 500 MG/NACL 100 ML IV SCH ×4 (00:40→23:39)
[2021-04-17] MEDS: CeFAZolin 2 GM/DEXTROSE 50 ML IV SCH ×4 (01:50→23:39)
[2021-04-17 04:00] VITALS: BP 114/63
[2021-04-17 04:57] LABS: EOSINOPHILS % (AUTO) 3.9 % (1.0-6.0); HEMATOCRIT 24.1 % (41-53); LYMPHOCYTES # (AUTO) 0.5 K/uL (1.0-4.8); MEAN CORPUSCULAR HEMOGLOBIN 28.8 pg (26.0-34.0); MEAN CORPUSCULAR HGB CONC 33.1 G/dL (31.0-37.0); MEAN CORPUSCULAR VOLUME 87 fL (80-100); MONOCYTES # (AUTO) 1.1 K/uL (0.1-1.0); MONOCYTES % (AUTO) 8.1 % (2.0-9.0); NEUTROPHILS # (AUTO) 11.1 K/uL (1.8-7.7); PLATELET COUNT (AUTO) 621 K/uL (150-450); RED BLOOD CELL COUNT(AUTO) 2.77 MIL/uL (4.50-5.90); RED CELL DISTRIBUTION WIDTH 15.7 % (11.5-14.5)
[2021-04-17 05:11] LABS: ALBUMIN 1.9 g/dL (3.4-5.0); BILIRUBIN,TOTAL 0.4 mg/dL (0.1-1.0); CALCIUM, TOTAL 8.1 mg/dL (8.8-10.5); CREATININE 2.24 mg/dL (0.60-1.30); TOTAL PROTEIN, SERUM 6.1 g/dL (6.4-8.2)
[2021-04-17 05:20] LABS: POTASSIUM 3.1 mmol/L (3.5-5.1)
[2021-04-17] MEDS ORDERED: POTASSIUM CHLORIDE 10% 40 MEQ/30 ML LIQUID UDCUP NG ONE (06:15)
[2021-04-17] MEDS: CISATRACURIUM BESYLATE 100 MG in DEXTROSE 5%-WATER 240 ML IV PRN ×3 (06:21→21:37)
[2021-04-17 08:00] VITALS: BP 119/67
[2021-04-17] MEDS ORDERED: POTASSIUM CHLORIDE 10% 40 MEQ/30 ML LIQUID UDCUP NG SCH (09:00)
[2021-04-17] MEDS: AMINO ACIDS/PROTEIN HYDROLYS 30 ML TUBE GT SCH ×2 (09:19→11:55)
[2021-04-17] MEDS: DOCUSATE SODIUM 100 MG CAPSULE PO SCH ×2 (09:20→21:30)
[2021-04-17] MEDS: QUEtiapine FUMARATE 25 MG TABLET PO SCH ×2 (09:20→21:30)
[2021-04-17] MEDS: ETHYL ALCOHOL 62% ANTISEPTIC NASAL INHALANT 0.6 ML AMPUL NASAL SCH ×2 (09:20→21:31)
[2021-04-17] MEDS: POTASSIUM CHL 10 MEQ/WATER 50 ML IV SCH ×4 (09:20→11:40)
[2021-04-17] MEDS: PANTOPRAZOLE SODIUM 40 MG/VIAL IVP SCH ×2 (09:21→21:31)
[2021-04-17] MEDS: DIAZEPAM 5 MG TABLET PO SCH ×3 (09:21→21:30)
[2021-04-17] MEDS: OxyCODONE HCL 5 MG IR TABLET PO SCH ×3 (09:21→21:31)
[2021-04-17] MEDS: CHOLECALCIFEROL (VIT D3) 2,000 UNITS [50 MCG] TABLET PO SCH (09:21)
[2021-04-17] MEDS ORDERED: SODIUM CHLORIDE 0.9% 250 ML IV ONE (09:26)
[2021-04-17] MEDS: METOCLOPRAMIDE HCL 5 MG/ML 2 ML VIAL IVP SCH ×3 (09:34→21:31)
[2021-04-17] MEDS: POTASSIUM CITRATE 5 MEQ ER TABLET PO SCH ×2 (09:38→16:48)
[2021-04-17 10:44] LABS: ABG A-A DIFF O2 233.6 mmHg (10-20.0); ABG BASE EXCESS 5.6 mmol/L (-2.0-3.0); ABG CARBOXYHEMOGLOBIN 0.4 % (0.0-1.5); ABG HCO3 28.7 mmol/L (22.0-26.0); ABG METHEMOGLOBIN 0.3 % (0.0-1.5); ABG OXYGEN CONTENT 11.5 mL/dL (15.0-23.0); ABG OXYGEN SATURATION 92.8 % (95.0-98.0); ABG OXYHEMOGLOBIN 92.2 % (94.0-100.0); ABG PCO2 52 mmHg (35-45); ABG PH 7.386 (7.35-7.450); ABG TOTAL HEMOGLOBIN 8.8 G/dL (12.0-18.0); PO2, ARTERIAL BG 64.5 mmHg (84.0-92.0); SOURCE, BLOOD GAS ARTERIAL; TEMPERATURE, FAHRENHEIT, BG 98.3 FAHREN (96.0-98.6)
[2021-04-17 10:45] LABS: O2 DEVICE,BLOOD GAS VENTILATOR (ROOM AIR); PEEP,BG 5 cm H2O; SITE, BLOOD GAS RT RADIAL; VENT MODE, BG Press. Control Vent (ROOM AIR)
[2021-04-17 10:46] LABS: SPONTANEOUS VT, BG 548 ml
[2021-04-17 12:00] VITALS: BP 124/73
[2021-04-17 16:00] VITALS: BP 128/68
[2021-04-17] MEDS: INSULIN LISPRO 100 UNITS/ML SQ PRN (18:01)
[2021-04-17 20:00] VITALS: BP 126/73
[2021-04-18] VITALS (7 sets, daily range): BP systolic 90–123; BP diastolic 50–75
[2021-04-18] MEDS: FentaNYL CIT 1000MCG/0.9% NACL 100 ML IV PRN ×4 (00:56→20:15)
[2021-04-18 04:38] LABS: BASOPHILS % (AUTO) 1.7 % (0.0-2.0); EOSINOPHILS % (AUTO) 3.9 % (1.0-6.0); HEMATOCRIT 24.8 % (41-53); HEMOGLOBIN 8.1 g/dL (13.5-17.5); LYMPHOCYTES # (AUTO) 1.3 K/uL (1.0-4.8); LYMPHOCYTES % (AUTO) 7.6 % (22.0-44.0); MEAN CORPUSCULAR HEMOGLOBIN 28.5 pg (26.0-34.0); MEAN CORPUSCULAR HGB CONC 32.6 G/dL (31.0-37.0); MEAN CORPUSCULAR VOLUME 88 fL (80-100); MONOCYTES # (AUTO) 1.6 K/uL (0.1-1.0); MONOCYTES % (AUTO) 9.6 % (2.0-9.0); NEUTROPHILS # (AUTO) 13.1 K/uL (1.8-7.7); NEUTROPHILS % (AUTO) 77.2 % (40.0-70.0); PLATELET COUNT (AUTO) 694 K/uL (150-450); RED BLOOD CELL COUNT(AUTO) 2.84 MIL/uL (4.50-5.90); RED CELL DISTRIBUTION WIDTH 15.6 % (11.5-14.5)
[2021-04-18 05:19] LABS: ALBUMIN 1.7 g/dL (3.4-5.0); BILIRUBIN,TOTAL 0.4 mg/dL (0.1-1.0); CREATININE 2.04 mg/dL (0.60-1.30); POTASSIUM 3.1 mmol/L (3.5-5.1); TOTAL PROTEIN, SERUM 6.1 g/dL (6.4-8.2)
[2021-04-18] MEDS: POTASSIUM CITRATE 5 MEQ ER TABLET PO SCH (05:42)
[2021-04-18] MEDS ORDERED: METOPROLOL TARTRATE 25 MG TABLET ONE (05:55)
[2021-04-18] MEDS: METOPROLOL TARTRATE 25 MG TABLET NG SCH ×2 (05:55→21:00)
[2021-04-18] MEDS: CHOLECALCIFEROL (VIT D3) 2,000 UNITS [50 MCG] TABLET PO SCH (09:33)
[2021-04-18] MEDS: PANTOPRAZOLE SODIUM 40 MG/VIAL IVP SCH ×2 (09:33→20:59)
[2021-04-18] MEDS: PROPOFOL 1000 MG/ISO-OSM 100 ML IV PRN ×4 (09:33→23:15)
[2021-04-18] MEDS: METOCLOPRAMIDE HCL 5 MG/ML 2 ML VIAL IVP SCH ×3 (09:33→21:00)
[2021-04-18] MEDS: QUEtiapine FUMARATE 25 MG TABLET PO SCH ×2 (09:34→20:59)
[2021-04-18] MEDS: DIAZEPAM 5 MG TABLET PO SCH ×3 (09:34→20:59)
[2021-04-18] MEDS: DOCUSATE SODIUM 100 MG CAPSULE PO SCH ×2 (09:34→20:59)
[2021-04-18] MEDS: OxyCODONE HCL 5 MG IR TABLET PO SCH ×3 (09:35→20:59)
[2021-04-18] MEDS: MetroNIDAZOLE 500 MG/NACL 100 ML IV SCH ×3 (09:37→23:15)
[2021-04-18] MEDS: AMINO ACIDS/PROTEIN HYDROLYS 30 ML TUBE GT SCH ×2 (09:38→13:10)
[2021-04-18] MEDS: CeFAZolin 2 GM/DEXTROSE 50 ML IV SCH ×2 (09:38→19:55)
[2021-04-18] MEDS ORDERED: POTASSIUM CHL 10 MEQ/WATER 50 ML IV SCH (09:45)
[2021-04-18] MEDS: CISATRACURIUM BESYLATE 100 MG in DEXTROSE 5%-WATER 240 ML IV PRN ×2 (11:42→20:14)
[2021-04-18] MEDS: ETHYL ALCOHOL 62% ANTISEPTIC NASAL INHALANT 0.6 ML AMPUL NASAL SCH ×2 (11:42→20:59)
[2021-04-18] MEDS: POTASSIUM CHL 10 MEQ/WATER 50 ML IV SCH ×5 (11:43→19:52)
[2021-04-18] MEDS ORDERED: SODIUM CHLORIDE 0.9% 250 ML IV ONE (20:56)
[2021-04-19] VITALS (8 sets, daily range): BP systolic 85–119; BP diastolic 6–72
[2021-04-19 00:32] LABS: CALCIUM, TOTAL 7.9 mg/dL (8.8-10.5); CREATININE 2.01 mg/dL (0.60-1.30); POTASSIUM 4.5 mmol/L (3.5-5.1)
[2021-04-19] MEDS: CeFAZolin 2 GM/DEXTROSE 50 ML IV SCH ×3 (01:21→16:55)
[2021-04-19] MEDS: FentaNYL CIT 1000MCG/0.9% NACL 100 ML IV PRN ×4 (01:30→21:28)
[2021-04-19] MEDS: PROPOFOL 1000 MG/ISO-OSM 100 ML IV PRN ×4 (04:57→21:27)
[2021-04-19 05:28] LABS: BASOPHILS % (AUTO) 1.1 % (0.0-2.0); EOSINOPHILS % (AUTO) 3.6 % (1.0-6.0); HEMATOCRIT 25.2 % (41-53); HEMOGLOBIN 8.3 g/dL (13.5-17.5); LYMPHOCYTES # (AUTO) 0.9 K/uL (1.0-4.8); LYMPHOCYTES % (AUTO) 5.6 % (22.0-44.0); MEAN CORPUSCULAR HEMOGLOBIN 28.9 pg (26.0-34.0); MEAN CORPUSCULAR HGB CONC 32.9 G/dL (31.0-37.0); MEAN CORPUSCULAR VOLUME 88 fL (80-100); MONOCYTES # (AUTO) 1.6 K/uL (0.1-1.0); NEUTROPHILS # (AUTO) 12.9 K/uL (1.8-7.7); NEUTROPHILS % (AUTO) 79.7 % (40.0-70.0); PLATELET COUNT (AUTO) 580 K/uL (150-450); RED BLOOD CELL COUNT(AUTO) 2.88 MIL/uL (4.50-5.90); RED CELL DISTRIBUTION WIDTH 15.6 % (11.5-14.5)
[2021-04-19 05:42] LABS: CALCIUM, TOTAL 7.9 mg/dL (8.8-10.5); CREATININE 1.86 mg/dL (0.60-1.30)
[2021-04-19] MEDS: AMINO ACIDS/PROTEIN HYDROLYS 30 ML TUBE GT SCH ×2 (08:00→12:00)
[2021-04-19] MEDS: CISATRACURIUM BESYLATE 100 MG in DEXTROSE 5%-WATER 240 ML IV PRN ×2 (08:15→21:29)
[2021-04-19] MEDS: PANTOPRAZOLE SODIUM 40 MG/VIAL IVP SCH ×2 (10:05→21:30)
[2021-04-19] MEDS: METOCLOPRAMIDE HCL 5 MG/ML 2 ML VIAL IVP SCH ×3 (10:06→21:30)
[2021-04-19] MEDS: MetroNIDAZOLE 500 MG/NACL 100 ML IV SCH (10:06)
[2021-04-19] MEDS: DOCUSATE SODIUM 100 MG CAPSULE PO SCH ×2 (10:07→21:29)
[2021-04-19] MEDS: ETHYL ALCOHOL 62% ANTISEPTIC NASAL INHALANT 0.6 ML AMPUL NASAL SCH ×2 (10:07→21:29)
[2021-04-19] MEDS: CHOLECALCIFEROL (VIT D3) 2,000 UNITS [50 MCG] TABLET PO SCH (10:07)
[2021-04-19] MEDS: QUEtiapine FUMARATE 25 MG TABLET PO SCH ×2 (10:07→21:29)
[2021-04-19] MEDS: METOPROLOL TARTRATE 25 MG TABLET NG SCH ×2 (10:08→21:29)
[2021-04-19] MEDS: DIAZEPAM 5 MG TABLET PO SCH ×3 (10:08→21:30)
[2021-04-19] MEDS: OxyCODONE HCL 5 MG IR TABLET PO SCH ×3 (10:08→21:29)
[2021-04-19] MEDS: ACETAMINOPHEN 325 MG TABLET PO PRN ×2 (10:22→21:30)
[2021-04-19] MEDS: MIDAZOLAM HCL 100 MG in SODIUM CHLORIDE 0.9% 180 ML IV PRN (14:11)
[2021-04-19] MEDS ORDERED: SODIUM CHLORIDE 0.9% 250 ML IV ONE (21:22)
[2021-04-20] VITALS (8 sets, daily range): BP systolic 86–105; BP diastolic 55–90
[2021-04-20] MEDS: CeFAZolin 2 GM/DEXTROSE 50 ML IV SCH ×4 (00:06→23:46)
[2021-04-20] MEDS: FentaNYL CIT 1000MCG/0.9% NACL 100 ML IV PRN ×3 (02:55→23:49)
[2021-04-20] MEDS: PROPOFOL 1000 MG/ISO-OSM 100 ML IV PRN ×3 (02:55→12:44)
[2021-04-20] MEDS ORDERED: SODIUM CHLORIDE 0.9% 250 ML IV ONE (03:17)
[2021-04-20 05:35] LABS: BASOPHILS % (AUTO) 1.3 % (0.0-2.0); EOSINOPHILS % (AUTO) 6.4 % (1.0-6.0); HEMATOCRIT 22.1 % (41-53); HEMOGLOBIN 7.6 g/dL (13.5-17.5); LYMPHOCYTES # (AUTO) 0.9 K/uL (1.0-4.8); LYMPHOCYTES % (AUTO) 6.3 % (22.0-44.0); MEAN CORPUSCULAR HEMOGLOBIN 30.5 pg (26.0-34.0); MEAN CORPUSCULAR HGB CONC 34.5 G/dL (31.0-37.0); MEAN CORPUSCULAR VOLUME 88 fL (80-100); MONOCYTES # (AUTO) 1.6 K/uL (0.1-1.0); MONOCYTES % (AUTO) 10.9 % (2.0-9.0); NEUTROPHILS # (AUTO) 10.8 K/uL (1.8-7.7); NEUTROPHILS % (AUTO) 75.1 % (40.0-70.0); PLATELET COUNT (AUTO) 555 K/uL (150-450)
[2021-04-20 06:04] LABS: ALBUMIN 1.5 g/dL (3.4-5.0); BILIRUBIN,TOTAL 0.4 mg/dL (0.1-1.0); CALCIUM, TOTAL 7.8 mg/dL (8.8-10.5); CREATININE 2.05 mg/dL (0.60-1.30); POTASSIUM 3.3 mmol/L (3.5-5.1); TOTAL PROTEIN, SERUM 5.9 g/dL (6.4-8.2)
[2021-04-20] MEDS: AMINO ACIDS/PROTEIN HYDROLYS 30 ML TUBE GT SCH ×2 (08:00→12:47)
[2021-04-20 09:40] LABS: MAGNESIUM 1.4 mg/dL (1.80-2.40); PHOSPHORUS 3.8 mg/dL (2.5-4.9)
[2021-04-20] MEDS ORDERED: POTASSIUM CHL 10 MEQ/WATER 50 ML IV ONE (10:00)
[2021-04-20] MEDS: METOPROLOL TARTRATE 25 MG TABLET NG SCH ×2 (10:19→22:16)
[2021-04-20] MEDS: PANTOPRAZOLE SODIUM 40 MG/VIAL IVP SCH ×2 (10:19→22:05)
[2021-04-20] MEDS: METOCLOPRAMIDE HCL 5 MG/ML 2 ML VIAL IVP SCH ×3 (10:19→22:05)
[2021-04-20] MEDS: ETHYL ALCOHOL 62% ANTISEPTIC NASAL INHALANT 0.6 ML AMPUL NASAL SCH ×2 (10:19→22:05)
[2021-04-20] MEDS: OxyCODONE HCL 5 MG IR TABLET PO SCH ×3 (10:20→22:16)
[2021-04-20] MEDS: QUEtiapine FUMARATE 25 MG TABLET PO SCH ×2 (10:20→22:05)
[2021-04-20] MEDS: DOCUSATE SODIUM 100 MG CAPSULE PO SCH ×2 (10:20→22:05)
[2021-04-20] MEDS: DIAZEPAM 5 MG TABLET PO SCH ×3 (10:21→22:16)
[2021-04-20] MEDS: CHOLECALCIFEROL (VIT D3) 2,000 UNITS [50 MCG] TABLET PO SCH (10:21)
[2021-04-20] MEDS: POTASSIUM CHL 10 MEQ/WATER 50 ML IV SCH ×5 (10:21→15:24)
[2021-04-20] MEDS ORDERED: POTASSIUM CHL 10 MEQ/WATER 50 ML IV SCH (13:00)
[2021-04-20] MEDS: BUMETANIDE 0.25 MG/ML 4 ML VIAL IVP SCH (13:22)
[2021-04-20] MEDS: DAPTOMYCIN 500 MG in SODIUM CHLORIDE 0.9% 50 ML IV SCH (13:23)
[2021-04-20] MEDS: ACETAMINOPHEN 325 MG TABLET PO PRN (16:27)
[2021-04-20 18:59] LABS: CALCIUM, TOTAL 7.6 mg/dL (8.8-10.5); CREATININE 2.13 mg/dL (0.60-1.30); POTASSIUM 4.3 mmol/L (3.5-5.1)
[2021-04-21] VITALS (7 sets, daily range): BP systolic 87–133; BP diastolic 46–76
[2021-04-21] MEDS: PROPOFOL 1000 MG/ISO-OSM 100 ML IV PRN ×4 (01:57→20:33)
[2021-04-21 05:39] LABS: BASOPHILS % (AUTO) 0.9 % (0.0-2.0); HEMATOCRIT 26.3 % (41-53); HEMOGLOBIN 8.3 g/dL (13.5-17.5); LYMPHOCYTES # (AUTO) 0.5 K/uL (1.0-4.8); LYMPHOCYTES % (AUTO) 2.5 % (22.0-44.0); MEAN CORPUSCULAR HEMOGLOBIN 28.2 pg (26.0-34.0); MEAN CORPUSCULAR HGB CONC 31.6 G/dL (31.0-37.0); MEAN CORPUSCULAR VOLUME 89 fL (80-100); MONOCYTES # (AUTO) 1.4 K/uL (0.1-1.0); MONOCYTES % (AUTO) 7.3 % (2.0-9.0); NEUTROPHILS # (AUTO) 17.1 K/uL (1.8-7.7); PLATELET COUNT (AUTO) 644 K/uL (150-450); RED BLOOD CELL COUNT(AUTO) 2.94 MIL/uL (4.50-5.90); RED CELL DISTRIBUTION WIDTH 15.7 % (11.5-14.5)
[2021-04-21] MEDS: FentaNYL CIT 1000MCG/0.9% NACL 100 ML IV PRN ×2 (06:19→13:59)
[2021-04-21 06:37] LABS: ALBUMIN 1.6 g/dL (3.4-5.0); BILIRUBIN,TOTAL 0.4 mg/dL (0.1-1.0); CALCIUM, TOTAL 8.4 mg/dL (8.8-10.5); CREATININE 2.28 mg/dL (0.60-1.30); MAGNESIUM 1.5 mg/dL (1.80-2.40); PHOSPHORUS 4.9 mg/dL (2.5-4.9); POTASSIUM 4.1 mmol/L (3.5-5.1); TOTAL PROTEIN, SERUM 6.6 g/dL (6.4-8.2)
[2021-04-21] MEDS: INSULIN LISPRO 100 UNITS/ML SQ PRN ×2 (06:44→14:08)
[2021-04-21 06:58] LABS: NEUTROPHILS % (AUTO) 87.3 % (40.0-70.0)
[2021-04-21] MEDS ORDERED: SODIUM CHLORIDE 0.9% 250 ML IV ONE (08:23)
[2021-04-21] MEDS: AMINO ACIDS/PROTEIN HYDROLYS 30 ML TUBE GT SCH ×2 (08:26→13:53)
[2021-04-21] MEDS: PANTOPRAZOLE SODIUM 40 MG/VIAL IVP SCH ×2 (08:27→20:34)
[2021-04-21] MEDS: CeFAZolin 2 GM/DEXTROSE 50 ML IV SCH (08:27)
[2021-04-21] MEDS: BUMETANIDE 0.25 MG/ML 4 ML VIAL IVP SCH (08:27)
[2021-04-21] MEDS: METOPROLOL TARTRATE 25 MG TABLET NG SCH ×2 (08:28→21:00)
[2021-04-21] MEDS: DOCUSATE SODIUM 100 MG CAPSULE PO SCH ×2 (08:28→20:34)
[2021-04-21] MEDS: DIAZEPAM 5 MG TABLET PO SCH ×3 (08:28→21:00)
[2021-04-21] MEDS: QUEtiapine FUMARATE 25 MG TABLET PO SCH ×2 (08:28→20:34)
[2021-04-21] MEDS: OxyCODONE HCL 5 MG IR TABLET PO SCH ×3 (08:28→20:34)
[2021-04-21] MEDS: CHOLECALCIFEROL (VIT D3) 2,000 UNITS [50 MCG] TABLET PO SCH (08:29)
[2021-04-21] MEDS: ETHYL ALCOHOL 62% ANTISEPTIC NASAL INHALANT 0.6 ML AMPUL NASAL SCH ×2 (08:29→20:35)
[2021-04-21] MEDS: METOCLOPRAMIDE HCL 5 MG/ML 2 ML VIAL IVP SCH ×3 (08:31→20:35)
[2021-04-21] MEDS ORDERED: MAGNESIUM SULFATE 2 GM/WATER 50 ML IV ONE (09:00)
[2021-04-21] MEDS: NOREPINEPHRINE 4 MG/D5%-WATER 250 ML IV PRN ×3 (09:00→23:57)
[2021-04-21] MEDS ORDERED: *CLINICAL-MEROPENEM DOSING CLINICAL ONE (12:30)
[2021-04-21] MEDS: DAPTOMYCIN 500 MG in SODIUM CHLORIDE 0.9% 50 ML IV SCH (13:57)
[2021-04-21] MEDS: MEROPENEM 1 GM in SODIUM CHLORIDE 0.9% 100 ML IV SCH (14:44)
[2021-04-21] MEDS: MIDAZOLAM HCL 100 MG in SODIUM CHLORIDE 0.9% 180 ML IV PRN (17:26)
[2021-04-22] VITALS: BP 125/74
[2021-04-22] MEDS: MEROPENEM 1 GM in SODIUM CHLORIDE 0.9% 100 ML IV SCH (03:18)
[2021-04-22 04:00] VITALS: BP 142/84
[2021-04-22] MEDS: FentaNYL CIT 1000MCG/0.9% NACL 100 ML IV PRN ×3 (04:01→22:28)
[2021-04-22 06:00] LABS: HEMATOCRIT 23.1 % (41-53); HEMOGLOBIN 7.4 g/dL (13.5-17.5); MEAN CORPUSCULAR HGB CONC 31.9 G/dL (31.0-37.0); MEAN CORPUSCULAR VOLUME 88 fL (80-100); PLATELET COUNT (AUTO) 662 K/uL (150-450); RED BLOOD CELL COUNT(AUTO) 2.64 MIL/uL (4.50-5.90); RED CELL DISTRIBUTION WIDTH 15.5 % (11.5-14.5)
[2021-04-22 06:24] LABS: ALBUMIN 1.6 g/dL (3.4-5.0); BILIRUBIN,TOTAL 0.4 mg/dL (0.1-1.0); CALCIUM, TOTAL 8.5 mg/dL (8.8-10.5); CREATININE 2.57 mg/dL (0.60-1.30); MAGNESIUM 1.8 mg/dL (1.80-2.40); PHOSPHORUS 4.7 mg/dL (2.5-4.9); POTASSIUM 4.2 mmol/L (3.5-5.1); TOTAL PROTEIN, SERUM 6.6 g/dL (6.4-8.2)
[2021-04-22] MEDS: METOPROLOL TARTRATE 25 MG TABLET NG SCH ×2 (09:00→20:49)
[2021-04-22] MEDS: AMINO ACIDS/PROTEIN HYDROLYS 30 ML TUBE GT SCH ×2 (09:24→13:54)
[2021-04-22] MEDS: CHOLECALCIFEROL (VIT D3) 2,000 UNITS [50 MCG] TABLET PO SCH (09:24)
[2021-04-22] MEDS: BUMETANIDE 0.25 MG/ML 4 ML VIAL IVP SCH (09:24)
[2021-04-22] MEDS: ETHYL ALCOHOL 62% ANTISEPTIC NASAL INHALANT 0.6 ML AMPUL NASAL SCH ×2 (09:24→20:47)
[2021-04-22] MEDS: QUEtiapine FUMARATE 25 MG TABLET PO SCH ×2 (09:25→20:47)
[2021-04-22] MEDS: DOCUSATE SODIUM 100 MG CAPSULE PO SCH ×2 (09:26→20:01)
[2021-04-22] MEDS: OxyCODONE HCL 5 MG IR TABLET PO SCH ×4 (09:26→20:48)
[2021-04-22] MEDS: DIAZEPAM 5 MG TABLET PO SCH ×4 (09:26→20:49)
[2021-04-22 09:32] LABS: BAND NEUTROPHILS % (MANUAL) 18 % (0-5); LYMPHOCYTES % (MANUAL) 16 % (22-44); MONOCYTES % (MANUAL) 5 % (2-9); SEGMENTED NEUTROPHILS % 61 % (40-70)
[2021-04-22 10:33] VITALS: BP 111/69
[2021-04-22] MEDS: PANTOPRAZOLE SODIUM 40 MG/VIAL IVP SCH ×2 (10:33→20:47)
[2021-04-22] MEDS: METOCLOPRAMIDE HCL 5 MG/ML 2 ML VIAL IVP SCH ×3 (10:33→20:47)
[2021-04-22 12:00] VITALS: BP 115/79
[2021-04-22] MEDS ORDERED: PIPERACILLIN/TAZO 3.375 GM/D5W 50 ML IV SCH (12:00)
[2021-04-22] MEDS: PIPERACILLIN SODIUM/TAZOBACTAM 2.25 GM in DEXTROSE 5%-WATER 50 ML IV SCH ×3 (13:54→17:05)
[2021-04-22] MEDS: DAPTOMYCIN 500 MG in SODIUM CHLORIDE 0.9% 50 ML IV SCH (15:33)
[2021-04-22 16:00] VITALS: BP 131/79
[2021-04-22 17:03] LABS: GLUCOSE,POINT OF CARE 108 MG/DL (70-110)
[2021-04-22 17:03] LABS: GLUCOSE,POINT OF CARE 142 MG/DL (70-110)
[2021-04-22 17:03] LABS: GLUCOSE,POINT OF CARE 120 MG/DL (70-110)
[2021-04-22 17:03] LABS: GLUCOSE,POINT OF CARE 107 MG/DL (70-110)
[2021-04-22 17:03] LABS: GLUCOSE,POINT OF CARE 132 MG/DL (70-110)
[2021-04-22 17:04] LABS: GLUCOSE,POINT OF CARE 128 MG/DL (70-110)
[2021-04-22 17:04] LABS: GLUCOSE,POINT OF CARE 130 MG/DL (70-110)
[2021-04-22 17:04] LABS: GLUCOSE,POINT OF CARE 115 MG/DL (70-110)
[2021-04-22 17:04] LABS: GLUCOSE,POINT OF CARE 139 MG/DL (70-110)
[2021-04-22 17:04] LABS: GLUCOSE,POINT OF CARE 153 MG/DL (70-110)
[2021-04-22 17:05] LABS: GLUCOSE,POINT OF CARE 132 MG/DL (70-110)
[2021-04-22 17:05] LABS: GLUCOSE,POINT OF CARE 128 MG/DL (70-110)
[2021-04-22 17:05] LABS: GLUCOSE,POINT OF CARE 164 MG/DL (70-110)
[2021-04-22 17:05] LABS: GLUCOSE,POINT OF CARE 123 MG/DL (70-110)
[2021-04-22 17:05] LABS: GLUCOSE,POINT OF CARE 117 MG/DL (70-110)
[2021-04-22 17:06] LABS: GLUCOSE,POINT OF CARE 129 MG/DL (70-110)
[2021-04-22 17:06] LABS: GLUCOSE,POINT OF CARE 119 MG/DL (70-110)
[2021-04-22 17:06] LABS: GLUCOSE,POINT OF CARE 129 MG/DL (70-110)
[2021-04-22 17:06] LABS: GLUCOSE,POINT OF CARE 97 MG/DL (70-110)
[2021-04-22 17:06] LABS: GLUCOSE,POINT OF CARE 126 MG/DL (70-110)
[2021-04-22 17:06] LABS: GLUCOSE,POINT OF CARE 130 MG/DL (70-110)
[2021-04-22 17:06] LABS: GLUCOSE,POINT OF CARE 115 MG/DL (70-110)
[2021-04-22 17:06] LABS: GLUCOSE,POINT OF CARE 108 MG/DL (70-110)
[2021-04-22 17:06] LABS: GLUCOSE,POINT OF CARE 140 MG/DL (70-110)
[2021-04-22 17:07] LABS: GLUCOSE,POINT OF CARE 122 MG/DL (70-110)
[2021-04-22 17:07] LABS: GLUCOSE,POINT OF CARE 138 MG/DL (70-110)
[2021-04-22 17:07] LABS: GLUCOSE,POINT OF CARE 101 MG/DL (70-110)
[2021-04-22 17:07] LABS: GLUCOSE,POINT OF CARE 107 MG/DL (70-110)
[2021-04-22 17:07] LABS: GLUCOSE,POINT OF CARE 133 MG/DL (70-110)
[2021-04-22 17:08] LABS: GLUCOSE,POINT OF CARE 129 MG/DL (70-110)
[2021-04-22 17:08] LABS: GLUCOSE,POINT OF CARE 119 MG/DL (70-110)
[2021-04-22 17:08] LABS: GLUCOSE,POINT OF CARE 113 MG/DL (70-110)
[2021-04-22 17:08] LABS: GLUCOSE,POINT OF CARE 143 MG/DL (70-110)
[2021-04-22 17:08] LABS: GLUCOSE,POINT OF CARE 115 MG/DL (70-110)
[2021-04-22 17:08] LABS: GLUCOSE,POINT OF CARE 123 MG/DL (70-110)
[2021-04-22 17:08] LABS: GLUCOSE,POINT OF CARE 129 MG/DL (70-110)
[2021-04-22 17:09] LABS: GLUCOSE,POINT OF CARE 116 MG/DL (70-110)
[2021-04-22 17:09] LABS: GLUCOSE,POINT OF CARE 147 MG/DL (70-110)
[2021-04-22 17:09] LABS: GLUCOSE,POINT OF CARE 164 MG/DL (70-110)
[2021-04-22 17:09] LABS: GLUCOSE,POINT OF CARE 93 MG/DL (70-110)
[2021-04-22 17:09] LABS: GLUCOSE,POINT OF CARE 174 MG/DL (70-110)
[2021-04-22 17:09] LABS: GLUCOSE,POINT OF CARE 132 MG/DL (70-110)
[2021-04-22 18:35] LABS: GLUCOSE,POINT OF CARE 110 MG/DL (70-110)
[2021-04-22 20:00] VITALS: BP 111/68
[2021-04-23] VITALS (7 sets, daily range): BP systolic 94–140; BP diastolic 55–85
[2021-04-23] MEDS: PIPERACILLIN SODIUM/TAZOBACTAM 2.25 GM in DEXTROSE 5%-WATER 50 ML IV SCH ×4 (00:24→18:15)
[2021-04-23] MEDS ORDERED: SODIUM CHLORIDE 0.9% 1,000 ML ONE ×2 (01:57→19:38)
[2021-04-23 05:08] LABS: BASOPHILS % (AUTO) 0.6 % (0.0-2.0); EOSINOPHILS % (AUTO) 0.6 % (1.0-6.0); HEMATOCRIT 22.4 % (41-53); HEMOGLOBIN 7.2 g/dL (13.5-17.5); LYMPHOCYTES # (AUTO) 0.6 K/uL (1.0-4.8); LYMPHOCYTES % (AUTO) 2.7 % (22.0-44.0); MEAN CORPUSCULAR HEMOGLOBIN 28.1 pg (26.0-34.0); MEAN CORPUSCULAR VOLUME 88 fL (80-100); MONOCYTES % (AUTO) 4.7 % (2.0-9.0); NEUTROPHILS # (AUTO) 19.8 K/uL (1.8-7.7); PLATELET COUNT (AUTO) 666 K/uL (150-450); RED BLOOD CELL COUNT(AUTO) 2.55 MIL/uL (4.50-5.90); RED CELL DISTRIBUTION WIDTH 15.8 % (11.5-14.5)
[2021-04-23 05:31] LABS: ALBUMIN 1.5 g/dL (3.4-5.0); BILIRUBIN,TOTAL 0.4 mg/dL (0.1-1.0); CALCIUM, TOTAL 8.7 mg/dL (8.8-10.5); CREATININE 2.89 mg/dL (0.60-1.30); MAGNESIUM 2.1 mg/dL (1.80-2.40); PHOSPHORUS 5.1 mg/dL (2.5-4.9); POTASSIUM 3.7 mmol/L (3.5-5.1); TOTAL PROTEIN, SERUM 6.3 g/dL (6.4-8.2)
[2021-04-23 05:37] LABS: NEUTROPHILS % (AUTO) 91.4 % (40.0-70.0)
[2021-04-23] MEDS: CHOLECALCIFEROL (VIT D3) 2,000 UNITS [50 MCG] TABLET PO SCH (08:20)
[2021-04-23] MEDS: OxyCODONE HCL 5 MG IR TABLET PO SCH ×3 (08:21→20:25)
[2021-04-23] MEDS: QUEtiapine FUMARATE 25 MG TABLET PO SCH ×2 (08:21→20:21)
[2021-04-23] MEDS: METOPROLOL TARTRATE 25 MG TABLET NG SCH ×2 (08:21→20:26)
[2021-04-23] MEDS: BUMETANIDE 0.25 MG/ML 4 ML VIAL IVP SCH (08:22)
[2021-04-23] MEDS: DIAZEPAM 5 MG TABLET PO SCH ×3 (08:22→20:25)
[2021-04-23] MEDS: PANTOPRAZOLE SODIUM 40 MG/VIAL IVP SCH ×2 (08:23→20:20)
[2021-04-23] MEDS: METOCLOPRAMIDE HCL 5 MG/ML 2 ML VIAL IVP SCH ×3 (08:23→20:21)
[2021-04-23] MEDS: AMINO ACIDS/PROTEIN HYDROLYS 30 ML TUBE GT SCH ×2 (08:24→12:00)
[2021-04-23] MEDS: ETHYL ALCOHOL 62% ANTISEPTIC NASAL INHALANT 0.6 ML AMPUL NASAL SCH ×2 (08:24→20:21)
[2021-04-23] MEDS: DOCUSATE SODIUM 100 MG CAPSULE PO SCH ×2 (09:00→20:21)
[2021-04-23 09:26] LABS: GLUCOSE,POINT OF CARE 113 MG/DL (70-110)
[2021-04-23 09:27] LABS: GLUCOSE,POINT OF CARE 122 MG/DL (70-110)
[2021-04-23] MEDS: MetroNIDAZOLE 500 MG/NACL 100 ML IV SCH ×2 (09:30→18:14)
[2021-04-23 11:12] LABS: RED CELL DISTRIBUTION WIDTH 16.4 % (11.5-14.5)
[2021-04-23 11:16] LABS: MEAN CORPUSCULAR HEMOGLOBIN 27.8 pg (26.0-34.0); MEAN CORPUSCULAR HGB CONC 30.4 G/dL (31.0-37.0); MEAN CORPUSCULAR VOLUME 92 fL (80-100); RED BLOOD CELL COUNT(AUTO) 2.39 MIL/uL (4.50-5.90)
[2021-04-23 11:20] LABS: ANION GAP 14 mmol/L (8-16); CALCIUM, TOTAL 8.5 mg/dL (8.8-10.5); CARBON DIOXIDE 27 mmol/L (22-29); CHLORIDE 101 mmol/L (98-107); CREATININE 3.62 mg/dL (0.60-1.30); GLOMERULAR FILTR. RATE CALC 17 mL/min (>60); GLUCOSE,RANDOM 200 mg/dL (70-110); POTASSIUM 3.5 mmol/L (3.5-5.1); SODIUM SERUM 142 mmol/L (136-145); UREA NITROGEN, BLOOD 81 mg/dL (7-18)
[2021-04-23 11:24] LABS: HEMATOCRIT 21.9 % (41-53); HEMOGLOBIN 6.7 g/dL (13.5-17.5)
[2021-04-23 11:25] LABS: PLATELET COUNT (AUTO) 675 K/uL (150-450)
[2021-04-23 11:26] LABS: ALANINE AMINOTRANSFERASE 2 U/L (12-78); ALBUMIN 1.4 g/dL (3.4-5.0); ALKALINE PHOSPHATASE 256 U/L (46-116); ASPARTATE AMINOTRANSFERASE 14 U/L (15-37); BILIRUBIN,TOTAL 0.4 mg/dL (0.1-1.0); TOTAL PROTEIN, SERUM 6.1 g/dL (6.4-8.2)
[2021-04-23 11:39] LABS: GLUCOSE,POINT OF CARE 176 MG/DL (70-110)
[2021-04-23 11:49] LABS: D-DIMER 22.14 mg/L FEU (0.00-0.50)
[2021-04-23] MEDS ORDERED: SODIUM CHLORIDE 0.9% 250 ML IV ONE (12:21)
[2021-04-23 12:22] LABS: INR 1.4 (0.9-1.1)
[2021-04-23 12:23] LABS: PROTHROMBIN TIME 14.3 SEC (9.4-11.6)
[2021-04-23 12:29] LABS: ABG A-A DIFF O2 583.8 mmHg (10-20.0); ABG BASE EXCESS 0.3 mmol/L (-2.0-3.0); ABG CARBOXYHEMOGLOBIN 0.7 % (0.0-1.5); ABG HCO3 23.9 mmol/L (22.0-26.0); ABG METHEMOGLOBIN 0.3 % (0.0-1.5); ABG OXYGEN CONTENT 8.8 mL/dL (15.0-23.0); ABG OXYGEN SATURATION 78.9 % (95.0-98.0); ABG OXYHEMOGLOBIN 78.1 % (94.0-100.0); ABG PCO2 79 mmHg (35-45); O2 DEVICE,BLOOD GAS VENTILATOR (ROOM AIR); PO2, ARTERIAL BG 50.5 mmHg (84.0-92.0); SITE, BLOOD GAS RT RADIAL; SOURCE, BLOOD GAS ARTERIAL; TEMPERATURE, FAHRENHEIT, BG 98.8 FAHREN (96.0-98.6); VENT MODE, BG Press. Control Vent (ROOM AIR)
[2021-04-23 12:30] LABS: PEEP,BG 5 cm H2O; SPONTANEOUS VT, BG 430 ml
[2021-04-23 12:44] LABS: BAND NEUTROPHILS % (MANUAL) 21 % (0-5); LYMPHOCYTES % (MANUAL) 12 % (22-44); MONOCYTES % (MANUAL) 2 % (2-9); SEGMENTED NEUTROPHILS % 65 % (40-70)
[2021-04-23] MEDS ORDERED: SODIUM CHLORIDE 0.9% 500 ML IV ONE (12:55)
[2021-04-23] MEDS: DAPTOMYCIN 500 MG in SODIUM CHLORIDE 0.9% 50 ML IV SCH (13:00)
[2021-04-23 13:01] LABS: LACTIC ACID 6.4 mmol/L (0.4-2.0)
[2021-04-23 15:08] LABS: ABG A-A DIFF O2 570.2 mmHg (10-20.0); ABG BASE EXCESS -0.5 mmol/L (-2.0-3.0); ABG CARBOXYHEMOGLOBIN 0.6 % (0.0-1.5); ABG HCO3 23.1 mmol/L (22.0-26.0); ABG METHEMOGLOBIN 0.3 % (0.0-1.5); ABG OXYGEN CONTENT 10.4 mL/dL (15.0-23.0); ABG OXYHEMOGLOBIN 82.3 % (94.0-100.0); ABG TOTAL HEMOGLOBIN 8.9 G/dL (12.0-18.0); PO2, ARTERIAL BG 55.2 mmHg (84.0-92.0); SOURCE, BLOOD GAS ARTERIAL; TEMPERATURE, FAHRENHEIT, BG 98.8 FAHREN (96.0-98.6)
[2021-04-23 15:11] LABS: O2 DEVICE,BLOOD GAS VENTILATOR (ROOM AIR); SITE, BLOOD GAS RT RADIAL; VENT MODE, BG Press. Control Vent (ROOM AIR)
[2021-04-23 15:12] LABS: PEEP,BG 8 cm H2O; SPONTANEOUS VT, BG 410 ml
[2021-04-23 15:54] LABS: ABG PCO2 87 mmHg (35-45); ABG PH 7.134 (7.35-7.450)
[2021-04-23 16:11] LABS: HEMATOCRIT 24.9 % (41-53); HEMOGLOBIN 7.8 g/dL (13.5-17.5)
[2021-04-23 17:12] LABS: APPEARANCE,URINE CLOUDY (CLEAR); BILIRUBIN,URINE NEGATIVE (NEGATIVE); GLUCOSE, URINE (UA) NEGATIVE (NEGATIVE); KETONES,URINE NEGATIVE (NEGATIVE); LEUKOCYTE ESTERASE ,URINE NEGATIVE (NEGATIVE); NITRATE,URINE NEGATIVE (NEGATIVE); PH,URINE 5.5 (5.0-8.0); PROTEIN,URINE SEE CONFIRM (NEGATIVE); UROBILINOGEN,URINE 0.2 mg/dL (<=1.0)
[2021-04-23 17:20] LABS: BACTERIA,URINE None Seen /HPF (None Seen); OCCULT BLOOD,URINE SMALL (NEGATIVE); SULFOSALICYLIC ACID,URINE 3+ (Negative); WBC,URINE None Seen /HPF (0-5)
[2021-04-23 17:21] LABS: AMORPHOUS SEDIMENT,UR Few /LPF (None Seen)
[2021-04-23] MEDS: DOPamine 800MG/D5W[DOUBLE] 250 ML IV PRN (17:47)
[2021-04-23] MEDS: INSULIN LISPRO 100 UNITS/ML SQ PRN (18:15)
[2021-04-23 18:21] LABS: GLUCOSE,POINT OF CARE 158 MG/DL (70-110)
[2021-04-23] MEDS: ACETAMINOPHEN 325 MG TABLET PO PRN (20:20)
[2021-04-23] MEDS ORDERED: HEPARIN SODIUM,PORCINE 5,000 UNITS/ML VIAL IVP ONE (21:15)
[2021-04-23] MEDS ORDERED: HEPARIN SODIUM,PORCINE 1,000 UNITS/ML VIAL IVP PRN (21:15)
[2021-04-23] MEDS ORDERED: HEPARIN SODIUM,PORCINE 1,000 UNITS/ML VIAL IVP ONE ×2 (22:00)
[2021-04-24] VITALS (13 sets, daily range): BP systolic 93–134; BP diastolic 56–84
[2021-04-24] MEDS: FentaNYL CIT 1000MCG/0.9% NACL 100 ML IV PRN ×3 (00:13→22:56)
[2021-04-24] MEDS: VASOPRESSIN 40 UNITS in DEXTROSE 5%-WATER 98 ML IV PRN ×2 (00:14→20:19)
[2021-04-24] MEDS: PIPERACILLIN/TAZO 3.375 GM/D5W 50 ML IV SCH ×5 (00:22→23:32)
[2021-04-24] MEDS: POTASSIUM CHLORIDE 20 MEQ, SODIUM BICARBONATE 25 MEQ in NXSTAGE RFP-402 K0/CA3 5,000 ML IRRIG PRN ×2 (01:12→20:56)
[2021-04-24] MEDS: MetroNIDAZOLE 500 MG/NACL 100 ML IV SCH ×2 (01:15→08:40)
[2021-04-24] MEDS: NOREPINEPHRINE 4 MG/D5%-WATER 250 ML IV PRN ×2 (02:31→16:00)
[2021-04-24] MEDS: MIDAZOLAM HCL 100 MG in SODIUM CHLORIDE 0.9% 180 ML IV PRN (05:50)
[2021-04-24 05:55] LABS: BASOPHILS % (AUTO) 0.6 % (0.0-2.0); EOSINOPHILS % (AUTO) 0.2 % (1.0-6.0); HEMATOCRIT 21.9 % (41-53); LYMPHOCYTES # (AUTO) 1.2 K/uL (1.0-4.8); LYMPHOCYTES % (AUTO) 5.6 % (22.0-44.0); MEAN CORPUSCULAR HEMOGLOBIN 28.5 pg (26.0-34.0); MEAN CORPUSCULAR HGB CONC 31.5 G/dL (31.0-37.0); MEAN CORPUSCULAR VOLUME 91 fL (80-100); MONOCYTES # (AUTO) 1.8 K/uL (0.1-1.0); MONOCYTES % (AUTO) 8.3 % (2.0-9.0); NEUTROPHILS # (AUTO) 18.4 K/uL (1.8-7.7); PLATELET COUNT (AUTO) 608 K/uL (150-450); RED BLOOD CELL COUNT(AUTO) 2.42 MIL/uL (4.50-5.90); RED CELL DISTRIBUTION WIDTH 15.9 % (11.5-14.5)
[2021-04-24 05:59] LABS: ALBUMIN 1.4 g/dL (3.4-5.0); BILIRUBIN,TOTAL 1.2 mg/dL (0.1-1.0); CALCIUM, TOTAL 7.8 mg/dL (8.8-10.5); CREATININE 3.17 mg/dL (0.60-1.30); PHOSPHORUS 6.1 mg/dL (2.5-4.9); TOTAL PROTEIN, SERUM 6.3 g/dL (6.4-8.2)
[2021-04-24 06:05] LABS: GLUCOSE,POINT OF CARE 124 MG/DL (70-110)
[2021-04-24 06:13] LABS: NEUTROPHILS % (AUTO) 85.3 % (40.0-70.0)
[2021-04-24 06:17] LABS: HEMOGLOBIN 6.9 g/dL (13.5-17.5)
[2021-04-24 06:45] LABS: C.DIFF GDH ANTIGEN, Stool Negative (Negative); C.DIFF TOXINS A&B, Stool Negative (Negative)
[2021-04-24] MEDS ORDERED: SODIUM CHLORIDE 0.9% 2,000 ML ONE ×2 (07:53→13:47)
[2021-04-24] MEDS ORDERED: HEPARIN SODIUM 25000 UNITS/D5W 250 ML IV STA (08:25)
[2021-04-24] MEDS ORDERED: SODIUM CHLORIDE 0.9% 250 ML IV ONE (08:31)
[2021-04-24] MEDS: AMINO ACIDS/PROTEIN HYDROLYS 30 ML TUBE GT SCH ×2 (08:36→11:34)
[2021-04-24] MEDS: BUMETANIDE 0.25 MG/ML 4 ML VIAL IVP SCH (08:37)
[2021-04-24] MEDS: ETHYL ALCOHOL 62% ANTISEPTIC NASAL INHALANT 0.6 ML AMPUL NASAL SCH ×2 (08:37→20:54)
[2021-04-24] MEDS: PANTOPRAZOLE SODIUM 40 MG/VIAL IVP SCH ×2 (08:37→20:55)
[2021-04-24] MEDS: METOCLOPRAMIDE HCL 5 MG/ML 2 ML VIAL IVP SCH ×3 (08:38→20:55)
[2021-04-24] MEDS: CHOLECALCIFEROL (VIT D3) 2,000 UNITS [50 MCG] TABLET PO SCH (08:38)
[2021-04-24] MEDS: DIAZEPAM 5 MG TABLET PO SCH ×2 (08:39→15:12)
[2021-04-24] MEDS: QUEtiapine FUMARATE 25 MG TABLET PO SCH ×2 (08:39→20:55)
[2021-04-24] MEDS: OxyCODONE HCL 5 MG IR TABLET PO SCH ×3 (08:39→20:55)
[2021-04-24] MEDS: DOCUSATE SODIUM 100 MG CAPSULE PO SCH ×2 (09:00→20:55)
[2021-04-24] MEDS: METOPROLOL TARTRATE 25 MG TABLET NG SCH (09:00)
[2021-04-24] MEDS ORDERED: SODIUM CHLORIDE 0.9% 1,000 ML ONE (09:32)
[2021-04-24 11:18] LABS: ABG A-A DIFF O2 575.4 mmHg (10-20.0); ABG BASE EXCESS -0.8 mmol/L (-2.0-3.0); ABG CARBOXYHEMOGLOBIN 0.5 % (0.0-1.5); ABG HCO3 23.1 mmol/L (22.0-26.0); ABG METHEMOGLOBIN 0.1 % (0.0-1.5); ABG OXYGEN CONTENT 11.6 mL/dL (15.0-23.0); ABG OXYGEN SATURATION 94.2 % (95.0-98.0); ABG OXYHEMOGLOBIN 93.6 % (94.0-100.0); ABG TOTAL HEMOGLOBIN 8.7 G/dL (12.0-18.0); PO2, ARTERIAL BG 66.7 mmHg (84.0-92.0); SOURCE, BLOOD GAS ARTERIAL; TEMPERATURE, FAHRENHEIT, BG 95.6 FAHREN (96.0-98.6)
[2021-04-24 11:19] LABS: ABG PCO2 75 mmHg (35-45); ABG PH 7.178 (7.35-7.450); O2 DEVICE,BLOOD GAS VENTILATOR (ROOM AIR); SITE, BLOOD GAS RT RADIAL; VENT MODE, BG Press. Control Vent (ROOM AIR)
[2021-04-24 11:20] LABS: PEEP,BG 8 cm H2O; SPONTANEOUS VT, BG 486 ml
[2021-04-24] MEDS ORDERED: HEPARIN SODIUM,PORCINE 100 UNITS/ML 5 ML VIAL IVP ONE (11:30)
[2021-04-24] MEDS: DOPamine 800MG/D5W[DOUBLE] 250 ML IV PRN (11:35)
[2021-04-24 12:15] LABS: GLUCOSE,POINT OF CARE 112 MG/DL (70-110)
[2021-04-24] MEDS: DAPTOMYCIN 500 MG in SODIUM CHLORIDE 0.9% 50 ML IV SCH (12:54)
[2021-04-24 13:24] LABS: BASOPHILS % (AUTO) 1.4 % (0.0-2.0); EOSINOPHILS % (AUTO) 0.1 % (1.0-6.0); HEMATOCRIT 24.8 % (41-53); HEMOGLOBIN 7.8 g/dL (13.5-17.5); LYMPHOCYTES # (AUTO) 0.8 K/uL (1.0-4.8); MEAN CORPUSCULAR HEMOGLOBIN 28.6 pg (26.0-34.0); MEAN CORPUSCULAR HGB CONC 31.5 G/dL (31.0-37.0); MEAN CORPUSCULAR VOLUME 91 fL (80-100); MONOCYTES # (AUTO) 1.3 K/uL (0.1-1.0); MONOCYTES % (AUTO) 6.7 % (2.0-9.0); NEUTROPHILS # (AUTO) 16.7 K/uL (1.8-7.7); NEUTROPHILS % (AUTO) 87.8 % (40.0-70.0); PLATELET COUNT (AUTO) 543 K/uL (150-450); RED BLOOD CELL COUNT(AUTO) 2.73 MIL/uL (4.50-5.90); RED CELL DISTRIBUTION WIDTH 15.9 % (11.5-14.5)
[2021-04-24] MEDS: INSULIN LISPRO 100 UNITS/ML SQ PRN ×2 (13:24→17:50)
[2021-04-24 17:55] LABS: GLUCOSE,POINT OF CARE 237 MG/DL (70-110)
[2021-04-24 18:18] LABS: BASOPHILS % (AUTO) 1.4 % (0.0-2.0); EOSINOPHILS % (AUTO) 0.5 % (1.0-6.0); HEMATOCRIT 24.4 % (41-53); HEMOGLOBIN 7.6 g/dL (13.5-17.5); LYMPHOCYTES # (AUTO) 0.7 K/uL (1.0-4.8); LYMPHOCYTES % (AUTO) 3.6 % (22.0-44.0); MEAN CORPUSCULAR HEMOGLOBIN 28.7 pg (26.0-34.0); MEAN CORPUSCULAR HGB CONC 31.3 G/dL (31.0-37.0); MEAN CORPUSCULAR VOLUME 92 fL (80-100); MONOCYTES # (AUTO) 1.5 K/uL (0.1-1.0); MONOCYTES % (AUTO) 7.8 % (2.0-9.0); NEUTROPHILS # (AUTO) 16.7 K/uL (1.8-7.7); PLATELET COUNT (AUTO) 524 K/uL (150-450); RED BLOOD CELL COUNT(AUTO) 2.66 MIL/uL (4.50-5.90); RED CELL DISTRIBUTION WIDTH 16.3 % (11.5-14.5)
[2021-04-24 18:28] LABS: NEUTROPHILS % (AUTO) 86.7 % (40.0-70.0)
[2021-04-24 18:41] LABS: INR 1.6 (0.9-1.1); PROTHROMBIN TIME 16.4 SEC (9.4-11.6)
[2021-04-24 18:43] LABS: ALBUMIN 1.5 g/dL (3.4-5.0); BILIRUBIN,TOTAL 0.4 mg/dL (0.1-1.0); CALCIUM, TOTAL 7.9 mg/dL (8.8-10.5); CREATININE 3.21 mg/dL (0.60-1.30); PHOSPHORUS 6.3 mg/dL (2.5-4.9); POTASSIUM 4.2 mmol/L (3.5-5.1); TOTAL PROTEIN, SERUM 6.5 g/dL (6.4-8.2)
[2021-04-24] MEDS: NOREPINEPHRINE BITARTRATE 16 MG in DEXTROSE 5%-WATER 234 ML IV PRN (20:20)
[2021-04-24 20:30] LABS: PLATELET MORPHOLOGY COMMENT LARGE PLTS PRESENT
[2021-04-24] MEDS ORDERED: DIAZEPAM 10 MG TABLET PO PRN (21:00)
[2021-04-24] MEDS: DIAZEPAM 10 MG TABLET PO SCH (21:41)
[2021-04-25] VITALS: BP 97/56
[2021-04-25] MEDS ORDERED: HEPARIN SODIUM,PORCINE 1,000 UNITS/ML VIAL ONE (00:33)
[2021-04-25 00:37] LABS: GLUCOSE,POINT OF CARE 117 MG/DL (70-110)
[2021-04-25 00:37] LABS: GLUCOSE,POINT OF CARE 177 MG/DL (70-110)
[2021-04-25] MEDS ORDERED: HEPARIN SODIUM,PORCINE 1,000 UNITS/ML VIAL IVP PRN ×2 (00:45)
[2021-04-25 04:00] VITALS: BP 103/56
[2021-04-25] MEDS: PIPERACILLIN/TAZO 3.375 GM/D5W 50 ML IV SCH (05:41)
[2021-04-25 06:25] LABS: BASOPHILS % (AUTO) 1.1 % (0.0-2.0); EOSINOPHILS % (AUTO) 0.9 % (1.0-6.0); HEMATOCRIT 24.2 % (41-53); HEMOGLOBIN 7.9 g/dL (13.5-17.5); LYMPHOCYTES % (AUTO) 5.3 % (22.0-44.0); MEAN CORPUSCULAR HGB CONC 32.6 G/dL (31.0-37.0); MEAN CORPUSCULAR VOLUME 92 fL (80-100); MONOCYTES # (AUTO) 1.4 K/uL (0.1-1.0); MONOCYTES % (AUTO) 7.5 % (2.0-9.0); NEUTROPHILS # (AUTO) 15.7 K/uL (1.8-7.7); PLATELET COUNT (AUTO) 534 K/uL (150-450); RED BLOOD CELL COUNT(AUTO) 2.63 MIL/uL (4.50-5.90)
[2021-04-25 06:41] LABS: ALBUMIN 1.6 g/dL (3.4-5.0); BILIRUBIN,TOTAL 0.4 mg/dL (0.1-1.0); CALCIUM, TOTAL 8.4 mg/dL (8.8-10.5); CREATININE 3.43 mg/dL (0.60-1.30); PHOSPHORUS 6.7 mg/dL (2.5-4.9); TOTAL PROTEIN, SERUM 6.8 g/dL (6.4-8.2)
[2021-04-25 06:53] LABS: POTASSIUM 4.5 mmol/L (3.5-5.1)
[2021-04-25 06:58] LABS: GLUCOSE,POINT OF CARE 135 MG/DL (70-110)
[2021-04-25] MEDS: MIDAZOLAM HCL 100 MG in SODIUM CHLORIDE 0.9% 180 ML IV PRN (07:19)
[2021-04-25 07:31] LABS: NEUTROPHILS % (AUTO) 85.2 % (40.0-70.0)
[2021-04-25 08:00] VITALS: BP 90/55
[2021-04-25] MEDS: AMINO ACIDS/PROTEIN HYDROLYS 30 ML TUBE GT SCH (08:19)
[2021-04-25] MEDS: METOCLOPRAMIDE HCL 5 MG/ML 2 ML VIAL IVP SCH (08:20)
[2021-04-25] MEDS: PANTOPRAZOLE SODIUM 40 MG/VIAL IVP SCH (08:20)
[2021-04-25] MEDS: CHOLECALCIFEROL (VIT D3) 2,000 UNITS [50 MCG] TABLET PO SCH (08:20)
[2021-04-25] MEDS: OxyCODONE HCL 5 MG IR TABLET PO SCH (08:22)
[2021-04-25] MEDS: DIAZEPAM 10 MG TABLET PO SCH (08:22)
[2021-04-25] MEDS: QUEtiapine FUMARATE 25 MG TABLET PO SCH (08:22)
[2021-04-25] MEDS: ETHYL ALCOHOL 62% ANTISEPTIC NASAL INHALANT 0.6 ML AMPUL NASAL SCH (08:22)
[2021-04-25] MEDS: DOCUSATE SODIUM 100 MG CAPSULE PO SCH (08:22)
[2021-04-25] MEDS: FentaNYL CIT 1000MCG/0.9% NACL 100 ML IV PRN (08:45)
[2021-04-25] MEDS ORDERED: MORPHINE SULFATE 100 MG/NS/PF 100 ML IV PRN (10:45)
[2021-04-25 10:57] VITALS: BP 110/53
[2021-04-25] MEDS: NOREPINEPHRINE BITARTRATE 16 MG in DEXTROSE 5%-WATER 234 ML IV PRN (10:57)
[2021-04-25] MEDS ORDERED: SODIUM BICARBONATE [ADULT] 8.4% 50 MEQ/50 ML SYRINGE IVP ONE (14:36)
[2021-04-25] MEDS ORDERED: EPINEPHrine 1:10,000 [1 MG/10 ML] SYRINGE ONE (14:36)
== END 2021-04-25 15:50 | DRG 5 ==
LOC: EMS 13:09 → 5N 03-07 06:05 → ICUN 03-15 12:54 → ICU 03-15 19:01
PROVIDERS: ADMIT Internal Medicine; ATTEND Internal Medicine
PROC: XW033E5 Introduction of Remdesivir Anti-infective into Peripheral Vein, Percutaneous Approach, New Technology Group 5 (ICD-10-PCS; 2021-03-07)
PROC: XW033H5 Introduction of Tocilizumab into Peripheral Vein, Percutaneous Approach, New Technology Group 5 (ICD-10-PCS; 2021-03-08)
PROC: 5A1955Z Respiratory Ventilation, Greater than 96 Consecutive Hours (ICD-10-PCS; principal; 2021-03-15)
PROC: 0BH17EZ Insertion of Endotracheal Airway into Trachea, Via Natural or Artificial Opening (ICD-10-PCS; 2021-03-15)
PROC: 05HY33Z Insertion of Infusion Device into Upper Vein, Percutaneous Approach (ICD-10-PCS; 2021-03-15)
PROC: B54NZZA Ultrasonography of Left Upper Extremity Veins, Guidance (ICD-10-PCS; 2021-03-15)
PROC: 5A1D90Z Performance of Urinary Filtration, Continuous, Greater than 18 hours Per Day (ICD-10-PCS; 2021-03-16)
PROC: 5A1D90Z Performance of Urinary Filtration, Continuous, Greater than 18 hours Per Day (ICD-10-PCS; 2021-03-19)
PROC: 5A09357 Assistance with Respiratory Ventilation, Less than 24 Consecutive Hours, Continuous Positive Airway Pressure (ICD-10-PCS; 2021-03-22)
PROC: 5A1D70Z Performance of Urinary Filtration, Intermittent, Less than 6 Hours Per Day (ICD-10-PCS; 2021-03-23)
PROC: 5A1D70Z Performance of Urinary Filtration, Intermittent, Less than 6 Hours Per Day (ICD-10-PCS; 2021-03-25)
PROC: 5A1D70Z Performance of Urinary Filtration, Intermittent, Less than 6 Hours Per Day (ICD-10-PCS; 2021-03-27)
PROC: 0B113F4 Bypass Trachea to Cutaneous with Tracheostomy Device, Percutaneous Approach (ICD-10-PCS; 2021-03-29)
PROC: 5A1D70Z Performance of Urinary Filtration, Intermittent, Less than 6 Hours Per Day (ICD-10-PCS; 2021-03-29)
PROC: 5A1D70Z Performance of Urinary Filtration, Intermittent, Less than 6 Hours Per Day (ICD-10-PCS; 2021-03-30)
PROC: 5A1D70Z Performance of Urinary Filtration, Intermittent, Less than 6 Hours Per Day (ICD-10-PCS; 2021-04-01)
PROC: 5A1D70Z Performance of Urinary Filtration, Intermittent, Less than 6 Hours Per Day (ICD-10-PCS; 2021-04-02)
PROC: 06H03DZ Insertion of Intraluminal Device into Inferior Vena Cava, Percutaneous Approach (ICD-10-PCS; 2021-04-04)
PROC: 30233N1 Transfusion of Nonautologous Red Blood Cells into Peripheral Vein, Percutaneous Approach (ICD-10-PCS; 2021-04-16)
PROC: 5A12012 Performance of Cardiac Output, Single, Manual (ICD-10-PCS; 2021-04-23)
DX: A41.2 Sepsis due to unspecified staphylococcus (principal); J12.82 Pneumonia due to coronavirus disease 2019; N17.0 Acute kidney failure with tubular necrosis; R65.21 Severe sepsis with septic shock; J15.0 Pneumonia due to Klebsiella pneumoniae; I50.30 Unspecified diastolic (congestive) heart failure; U07.1 COVID-19; I82.409 Acute embolism and thrombosis of unspecified deep veins of unspecified lower extremity; I11.0 Hypertensive heart disease with heart failure; J15.6 Pneumonia due to other Gram-negative bacteria; J80 Acute respiratory distress syndrome; I48.0 Paroxysmal atrial fibrillation; D72.810 Lymphocytopenia; E78.5 Hyperlipidemia, unspecified; E87.2 Acidosis; E87.5 Hyperkalemia; J93.9 Pneumothorax, unspecified; Z90.49 Acquired absence of other specified parts of digestive tract; E87.1 Hypo-osmolality and hyponatremia; Z99.11 Dependence on respirator [ventilator] status; D64.9 Anemia, unspecified; Z99.2 Dependence on renal dialysis; Z95.828 Presence of other vascular implants and grafts; E87.6 Hypokalemia; K59.00 Constipation, unspecified; Z86.74 Personal history of sudden cardiac arrest; Z79.899 Other long term (current) drug therapy; Z66 Do not resuscitate; E78.00 Pure hypercholesterolemia, unspecified; N40.0 Benign prostatic hyperplasia without lower urinary tract symptoms; R00.0 Tachycardia, unspecified; J98.2 Interstitial emphysema; B96.1 Klebsiella pneumoniae [K. pneumoniae] as the cause of diseases classified elsewhere; E83.42 Hypomagnesemia; I46.9 Cardiac arrest, cause unspecified
CPT/HCPCS: 36245; 36569; 36600; 37619; 71045; 74018; 76770; 76937; 80048; 80053; 81001; 81002; 82271; 82330; 82550; 82565; 82570; 82728; 82805; 82962; 83605; 83615; 83690; 83735; 83880; 84100; 84132; 84145; 84300; 84443; 84484; 84520; 84540; 85014; 85018; 85025; 85379; 85384; 85610; 85730; 86140; 86850; 86900; 86901; 86923; 87040; 87070; 87077; 87081; 87186; 87205; 87305; 87324; 87340; 87449; 88108; 88312; 90935; 93005; 93306; 93308; 93970; 94002; 94003; 94640; 94760; 99291; C9113; G0238; G0378; J0171; J0360; J0456; J0610; J0690; J0696; J0713; J0878; J1100; J1160; J1170; J1265; J1642; J1644; J1815; J2020; J2060; J2185; J2250; J2270; J2370; J2543; J2704; J2765; J2997; J3475; J3480; J3490; J3535; J7030; J7040; J7050; J7060; J7120; P9016; P9046; Q9967; 36415-L1; 36415-TC; U0003